=== PATIENT | female | born 1935 | race Caucasian/White ===

== ENCOUNTER 2017-03-08 10:11 | Outpatient (CLI) | payer MEDICARE, OTHER ==
--- NOTE | 2017-03-08 13:46 | PRG ---
DATE OF SERVICE: 03/08/2017 SUBJECTIVE: An 81-year-old female returns today for right medial first metatarsal head ulceration, has been doing well. Has had Promogran dressing changes daily with a MediPort plus pad, covering th e wound, has had no pain with the wound. Denies nausea, vomiting, fevers, or chills. PHYSICAL EXAMINATION: Ulceration to the right foot, medial first metatarsal head measuring 0.5 cm x 0.5 cm x 0.1 cm, 100% slough base. No periwound erythema, edema, or warmth. 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 PLAN: 1. Full thickness debridement of the subcutaneous tissue layer down, removing all nonviable tissue and biofilm from the wound base. Post-debridement the wound was still had a fibrous base appearance to it. 2. We are going to continue with Promogran dressing changes daily. She will follow up with me in 2 weeks.
== END 2017-03-08 10:12 | disposition home or self-care (01) ==
LOC: WCC 10:11
PROVIDERS: ATTEND Podiatrist Foot & Ankle Surgery
DX: L97.519 Non-pressure chronic ulcer of other part of right foot with unspecified severity (principal)
CPT/HCPCS: 11042

== ENCOUNTER 2017-03-22 10:11 | Outpatient (CLI) | payer MEDICARE, OTHER ==
[2017-03-22] MEDS ORDERED: Sodium Chloride 0.9% 15 ML NEB ONE (11:11)
--- NOTE | 2017-03-22 12:16 | PRG ---
DATE OF SERVICE: 03/22/2017 SUBJECTIVE: An 81-year-old female returns today for followup right medial first metatarsal head ulc eration. The patient says she has been doing well with dressing changes. Denies any nausea, vomiti ng, fevers or chills. She has noticed some increase itching and drainage to the feet and they have not been applying the Ciclopirox cream at her nursing facility. OBJECTIVE: Wound at the right medial first metatarsal head has healed. There is 0.3 x 0.3 cm scab which is well adhered, no underlying wound present. There is some erythematous scaling on the dorsa l aspect of the foot. ASSESSMENT: 1. 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 2. Tinea pedis. PLAN: 1. Opened air and moisturizer to the previous wound site. 2. I sent a new prescription to [facility] so the patient can actually get the medicine and kendrick ly it herself twice a day for 4 weeks. She will follow up with me as needed.
== END 2017-03-22 10:12 | disposition home or self-care (01) ==
LOC: WCC 10:11
PROVIDERS: ATTEND Podiatrist Foot & Ankle Surgery
DX: B35.3 Tinea pedis (principal)
CPT/HCPCS: 97602; A4218

== ENCOUNTER 2017-09-24 21:28 | Observation (INO) | payer MEDICARE, OTHER ==
[2017-09-24] MEDS ORDERED: traMADol HCl 50 MG TAB ONE (22:16)
--- NOTE | 2017-09-24 23:13 | RAD ---
CHEST PA AND LATERAL: 09/24/17 HISTORY: 82-year-old female with cough and flu-like symptoms. COMPARISON: 04/02/16. Heart size is within upper range of normal limits. Mild increased linear and interstitial markings no cory bilaterally having more of a chronic appearance. No confluent pneumonia, overt edema, or pleural effusion. IMPRESSION: No acute intrathoracic disease. POS: [facility]
[2017-09-24 23:21] LABS: Hemoglobin 12.3 g/dL (12.0-16.0); Mean Corpuscular HGB CONC 33.5 g/dL (32.0-36.0); Mean Corpuscular Hemoglobin 31.3 pg (27.0-31.0); Mean Corpuscular Volume 93.5 fl (81.0-99.0); Mean Platelet Volume 7.4 fL (7.4-10.4); Platelet Count 154 thou/uL (130-400); RBC Distribution Width 12.2 % (11.5-14.5); Red Blood Cell (RBC) Count 3.93 mill/uL (4.20-5.40); White Blood Cell (WBC) Count 4.1 thou/uL (4.8-10.8)
[2017-09-24 23:41] LABS: ALT (SGPT) 11 U/L (8-55); AST (SGOT) 17 U/L (5-34); Alkaline Phosphatase 74 U/L (40-150); Anion Gap 13 mmol/L (10-20); BUN (Urea Nitrogen) 40 mg/dL (9.8-20.1); Bilirubin, Total 0.5 mg/dL (0.2-1.2); Calc. Creatinine Clearance 0 mL/min (70-130); Calcium 8.9 mg/dL (7.8-10.44); Carbon Dioxide 31 mmol/L (23-31); Chloride 101 mmol/L (98-107); Estimated GFR-MDRD 18; Globulin 2.5 g/dL (2.4-3.5); Glucose 110 mg/dL (83-110); Potassium 3.2 mmol/L (3.5-5.1); Protein, Total 6.5 g/dL (6.0-8.3); Sodium 142 mmol/L (136-145)
[2017-09-24 23:43] LABS: Band 1 % (5-11); Eosinophils 2 % (0-10); Lymphocytes 10 % (21-51); MDiff Complete? YES; Monocytes 18 % (0-10); Neutrophil 68 % (42-75); Reactive Lymphocytes 1 % (0-10)
[2017-09-24 23:45] LABS: CKMB 1.4 ng/mL (0-6.6); Troponin I 0.051 ng/mL (< 0.028)
[2017-09-25] MEDS ORDERED: Potassium Chloride 20 MEQ TAB ONE (01:47)
[2017-09-25 01:54] LABS: CKMB 1.4 ng/mL (0-6.6); Troponin I 0.058 ng/mL (< 0.028)
[2017-09-25] MEDS ORDERED: traMADol HCl 50 MG TAB ONE (02:23)
[2017-09-25 02:27] LABS: CK (CPK) 97 U/L (29-168); Lipase 15 U/L (8-78)
[2017-09-25] MEDS ORDERED: Aspirin 325 MG TAB ONE (04:01)
[2017-09-25 04:25] LABS: Troponin I 0.049 ng/mL (< 0.028)
[2017-09-25 05:03] VITALS: BMI 21.7
[2017-09-25] MEDS ORDERED: Ondansetron ODT 4 MG TAB SL PRN (05:13)
[2017-09-25] MEDS ORDERED: Acetaminophen 325 MG TAB PO PRN ×3 (05:13→07:51)
[2017-09-25] MEDS ORDERED: Ondansetron HCl/PF 4 MG/2 ML Vial IVP PRN (05:13)
[2017-09-25] MEDS ORDERED: Milk Of Magnesia 30 ML UDCUP PO PRN (07:51)
[2017-09-25] MEDS ORDERED: Non-Formulary Item 1 EACH (Eszopiclone [Lunesta] 2 MG) PO PRN (07:51)
[2017-09-25] MEDS ORDERED: Ondansetron ODT 4 MG TAB PO PRN (07:51)
[2017-09-25] MEDS ORDERED: Acetaminophen 500 MG TAB PO PRN (07:51)
[2017-09-25] MEDS ORDERED: traMADol HCl 50 MG TAB PO PRN ×2 (07:51)
[2017-09-25] MEDS ORDERED: Nitroglycerin 0.4 MG TAB (25 Tab Bottle) SL PRN (07:51)
[2017-09-25] MEDS ORDERED: Eszopiclone [Lunesta] 2 MG PO PRN (07:59)
[2017-09-25] MEDS ORDERED: Fluconazole 100 MG TAB PO SCH (09:00)
[2017-09-25] MEDS ORDERED: Multivitamin W/ Minerals 1 TAB PO SCH (09:00)
[2017-09-25] MEDS ORDERED: Potassium Chloride 20 MEQ TAB PO SCH (09:00)
[2017-09-25] MEDS ORDERED: levETIRAcetam 500 MG TAB PO SCH (09:00)
[2017-09-25] MEDS ORDERED: Non-Formulary Item 1 EACH (Carvedilol [Carvedilol] 12.5 MG) PO SCH (09:00)
[2017-09-25] MEDS ORDERED: hydrALAZINE 25 MG TAB PO SCH (09:00)
[2017-09-25] MEDS ORDERED: Non-Formulary Item 1 EACH (Pregabalin [Lyrica] 150 MG) PO SCH (09:00)
[2017-09-25] MEDS ORDERED: Furosemide 40 MG TAB PO SCH (09:00)
[2017-09-25] MEDS ORDERED: Non-Formulary Item 1 EACH (Multivitamin With Minerals [Multiple Vitamin] 1 TABLET) PO SCH (09:00)
[2017-09-25] MEDS ORDERED: Non-Formulary Item 1 EACH (Potassium Chloride [Potassium Chloride] 20 MEQ) PO SCH (09:00)
[2017-09-25] MEDS ORDERED: traMADol HCl 50 MG TAB PO SCH (09:00)
[2017-09-25] MEDS ORDERED: Pregabalin 75 MG CAP PO SCH (09:00)
[2017-09-25] MEDS ORDERED: Carvedilol 6.25 MG TAB PO SCH (09:00)
[2017-09-25] MEDS ORDERED: Non-Formulary Item 1 EACH (Calcium Carbonate/Vitamin D3 [Calcium 600-Vit D3 200 Tablet] 1 PO SCH (09:00)
[2017-09-25] MEDS ORDERED: Calcium Carbonate + Vit D 1 TAB PO SCH (09:00)
[2017-09-25] MEDS ORDERED: Famotidine 20 MG TAB PO SCH (09:00)
[2017-09-25] MEDS ORDERED: Amlodipine 10 MG TAB PO SCH (09:00)
[2017-09-25] MEDS ORDERED: FLUCONAZOLE 200 MG PO SCH (09:00)
[2017-09-25] MEDS ORDERED: LEVETIRACETAM 250 MG PO SCH (09:00)
--- NOTE | 2017-09-25 09:42 | HP ---
DATE OF ADMISSION: 09/25/2017 ADMITTING PHYSICIAN: Dr. Silvestre Hooks. HISTORY OF PRESENT ILLNESS: The patient is an 82-year-old female, who is a resident of [facility]. She states that she was in normal state of health. She is really not sure why she was brought to the hospital. She has a history of COPD. She reports some cough and congestion. Sh e feels like her heart may have come off and she may have gotten somewhat hypoxic. Nonetheless, she was brought to the emergency room. She denies any fever, nausea, vomiting. She has most recently finn d a cardiac workup done by Dr. Dumont in his office and has been found to be at her baseline. She has a history of atrial fibrillation associated with congestive heart failure with decreased ejectio n fraction of approximately 25%-30%. She has not noted any sudden paroxysmal nocturnal dyspnea, orth opnea. She has noted some mild coughing, which caused some chest discomfort. Otherwise, she notes n o other medical complaints. States she is actually feeling quite well at this time. She was seen an d evaluated in the ER. EKG did reveal some mild abnormalities with some mildly elevated indeterminat e level troponins. At this time, she reports no other medical complaints. ALLERGIES: She is allergic to CODEINE and HYDROCODONE. PAST MEDICAL HISTORY: Significant for hypertension and chronic renal insufficiency. PAST SURGICAL HISTORY: Positive for repair of right wrist fracture, pacemaker placement, and pacemak er removal. SOCIAL/PERSONAL HISTORY: She is a . She does not smoke nor does she drink alcohol. She reside s at [facility]. REVIEW OF SYSTEMS: Gastrointestinal: Negative. Genitourinary: Negative. Cardiovascular: Otherwi se, negative. Pulmonary: Positive for cough that is mildly productive. PHYSICAL EXAMINATION: VITAL SIGNS: Temperature 98.9, pulse 62, respirations 16, BP initially was 180/77, O2 sats 96% on 3 liters. GENERAL: She is alert, active, does not appear in any distress. HEENT: Normocephalic, atraumatic. Extraocular muscles are intact. Sclerae and conjunctivae are isabela ar. Throat is clear. NECK: Supple, full range of motion, no masses, no bruits. Thyroid is midline. No thyromegaly or th yroid masses. LUNGS: Bilateral breath sounds. HEART: Reveals an irregularly irregular rhythm. There is no murmur, gallops, or rubs appreciated at this time. EXTREMITIES: No clubbing, edema, or cyanosis. ABDOMEN: Soft, nontender. Bowel sounds are present and active. No hepatosplenomegaly is noted. LABORATORY DATA: Her white blood count is 4.1, hemoglobin 12.3, hematocrit 36.7. Sodium 142, potass ium 3.2, chloride 101, CO2 of 31, BUN 40, creatinine 2.62. Troponins are elevated to indeterminate r osmani between 0.051 and 0.058 and 0.049. BNP is slightly elevated at 67. Chest x-ray shows no eviden ce of any active disease, no evidence of infiltrates otherwise noted. IMPRESSION: An 82-year-old female with known history of atrial fibrillation, congestive heart failur e, chronic renal insufficiency, chronic obstructive pulmonary disease, who has now been admitted for chest discomfort with indeterminate elevated troponins. EKG reveals atrial fibrillation with some fl attened T waves. PLAN: Plan at this time is to check 1 more troponin on her this afternoon. Possible consider cardia c consultation. We will review her cardiac notes that are at my office and make further decisions th is afternoon.
[2017-09-25 12:22] VITALS: BP 155/70; TEMP 98.6
[2017-09-25 12:47] LABS: Troponin I 0.039 ng/mL (< 0.028)
--- NOTE | 2017-09-25 13:02 | DIS ---
HOSPITAL COURSE: Ms. Najera was admitted earlier this morning for elevated to indeterminate troponi n. It was felt like she was probably suffering from an upper respiratory infection with some COPD. She actually did remove her oxygen with a resultant decreased O2 sats. Her observation status in the hospital show no evidence of any acute coronary incident. She was maintained on her more normal opt ion, maintained normal oxygenation. She is able to be discharged back to [facility] on her home medicines. She will follow up with me on a p.r.n. basis.
[2017-09-27] MEDS ORDERED: Furosemide 80 MG TAB PO SCH (09:00)
--- NOTE | 2017-09-29 00:58 | EKG ---
Test Reason : Blood Pressure : / mmHG Vent. Rate : 061 BPM Atrial Rate : 050 BPM P-R Int : 000 ms QRS Dur : 118 ms QT Int : 468 ms P-R-T Axes : 000 -47 218 degrees QTc Int : 471 ms Atrial fibrillation Pulmonary disease pattern Left anterior fascicular block Prolonged QT Abnormal ECG Confirmed by DAVID CHAVZE ([id number]), desk editor TUAN JOSEPH ([id number]) on 09/29/2017 12:58:11 AM Referred By: Confirmed By:DAVID CHAVEZ
== END 2017-09-25 14:50 ==
LOC: ERS 21:28 → 2SW 09-25 02:37
PROVIDERS: ADMIT Family Medicine; ATTEND Family Medicine
DX: Z98.890 Other specified postprocedural states; I48.91 Unspecified atrial fibrillation; R79.89 Other specified abnormal findings of blood chemistry; Z88.5 Allergy status to narcotic agent; N18.9 Chronic kidney disease, unspecified; I50.9 Heart failure, unspecified; J44.9 Chronic obstructive pulmonary disease, unspecified; R07.89 Other chest pain; I13.0 Hypertensive heart and chronic kidney disease with heart failure and stage 1 through stage 4 chronic kidney disease, or unspecified chronic kidney disease
CPT/HCPCS: 71046; 80053; 82550; 82553 ×2; 83690; 83880; 84484 ×3; 85025; 87804 ×2; 93005 ×2; 99285; G0378; 36415; J7620

== ENCOUNTER 2017-09-30 01:55 | Inpatient (IN) | payer MEDICARE, OTHER ==
[2017-09-30 03:17] LABS: #Eosinphils 0.2 thou/uL (0.0-0.7); #Lymphocytes 0.8 thou/uL (1.20-3.40); #Monocytes 1.3 thou/uL (0.11-0.59); #Neutrophils 12.4 thou/uL (1.40-6.50); %Basophils 0.3 % (0.0-1.0); %Eosinophils 1.4 % (0.0-10.0); %Lymphocytes 5.1 % (21.0-51.0); %Neutrophils 84.2 % (42.0-75.0); Hemoglobin 11.7 g/dL (12.0-16.0); Mean Corpuscular HGB CONC 34.5 g/dL (32.0-36.0); Mean Corpuscular Hemoglobin 32.5 pg (27.0-31.0); Mean Platelet Volume 7.4 fL (7.4-10.4); Platelet Count 183 thou/uL (130-400); Red Blood Cell (RBC) Count 3.62 mill/uL (4.20-5.40); White Blood Cell (WBC) Count 14.7 thou/uL (4.8-10.8)
[2017-09-30 03:27] LABS: ALT (SGPT) 12 U/L (8-55); AST (SGOT) 16 U/L (5-34); Alkaline Phosphatase 84 U/L (40-150); Anion Gap 14 mmol/L (10-20); BUN (Urea Nitrogen) 37 mg/dL (9.8-20.1); Bilirubin, Total 0.6 mg/dL (0.2-1.2); Calc. Creatinine Clearance 0 mL/min (70-130); Calcium 8.9 mg/dL (7.8-10.44); Carbon Dioxide 27 mmol/L (23-31); Chloride 101 mmol/L (98-107); Estimated GFR-MDRD 18; Glucose 108 mg/dL (83-110); Potassium 3.6 mmol/L (3.5-5.1); Sodium 138 mmol/L (136-145)
[2017-09-30 03:31] LABS: CKMB 2.4 ng/mL (0-6.6); Troponin I 0.024 ng/mL (< 0.028)
[2017-09-30 04:06] LABS: Bilirubin Negative (Negative); Blood, Urine Negative (Negative); Clarity CLEAR (Clear); Glucose, Urine (Dipstick) Negative (Negative); Leukocyte Negative (Negative); Nitrite Negative (Negative); Protein, Urine (Dipstick) 100 mg/dL (Neg-Trace); Specific Gravity, Urine 1.012 (1.002-1.036); Urobilinogen 0.2 mg/dL (0.2-1.0); pH, Urine 5.5 (5.0-9.0)
[2017-09-30 04:09] LABS: Bacteria/HPF None Seen HPF (None Seen); Hyaline Casts/LPF 0-3 HYALINE CAST LPF (0-3 Hyaline); Pathc Cast-AUWi Flag 0.14 (0-2.49); RBC/HPF 0-3 HPF (0-3); Squamous Epithelial None Seen HPF (0-3); WBC/HPF 0-3 HPF (0-3)
[2017-09-30] MEDS ORDERED: Ondansetron ODT 4 MG TAB SL PRN (04:58)
[2017-09-30] MEDS ORDERED: Acetaminophen 325 MG TAB PO PRN (04:58)
[2017-09-30] MEDS ORDERED: Ondansetron HCl/PF 4 MG/2 ML Vial IVP PRN (04:58)
[2017-09-30 06:44] LABS: Troponin I 0.023 ng/mL (< 0.028)
[2017-09-30 07:38] VITALS: BMI 23.1
[2017-09-30] MEDS ORDERED: Non-Formulary Item 1 EACH (Eszopiclone [Lunesta] 2 MG) PO PRN (07:50)
[2017-09-30] MEDS ORDERED: Nitroglycerin 0.4 MG TAB (25 Tab Bottle) SL PRN (07:50)
[2017-09-30] MEDS ORDERED: Milk Of Magnesia 30 ML UDCUP PO PRN (07:50)
[2017-09-30] MEDS ORDERED: Guaifenesin DM 100-10/5 ML UDCUP PO PRN (07:50)
--- NOTE | 2017-09-30 08:02 | RAD ---
SINGLE VIEW CHEST: Date: 09/30/17 COMPARISON: 04/02/16. HISTORY: Shortness of breath and cough. FINDINGS: Single view of the chest shows an enlarged but stable cardiomediastinal silhouette. Increased interst itial markings are present. Atelectasis is seen in both lung bases. There is no evidence of consolida tion, mass, or pleural effusion. IMPRESSION: 1. Cardiomegaly. 2. Bibasilar atelectasis. POS: [facility]
[2017-09-30] MEDS ORDERED: Zolpidem Tartrate 5 MG TAB PO PRN (08:18)
--- NOTE | 2017-09-30 08:45 | HP ---
ADMITTING PHYSICIAN: Silvestre Hooks M.D. HISTORY OF PRESENT ILLNESS: The patient is an 82-year-old female with known history of congestive he art failure, COPD, cardiomyopathy, atherosclerotic coronary artery disease, history of seizure disord er. She was admitted through the emergency room with apparent right lower lobe pneumonia due to feve r and productive coughing. Chest x-ray that apparently does show a right lower lobe pneumonia. She states that she has been having some shortness of breath. She was recently here for observation appr oximately 1 week ago due to EKG changes. All of her troponins were noted to be negative. She is now resting comfortably in bed. She reports no additional complaints. ALLERGIES: CODEINE and HYDROCODONE. CURRENT MEDICATIONS: Noted in the chart. PAST MEDICAL HISTORY: Significant for hypertension, chronic renal insufficiency, atherosclerotic cor onary artery disease, chronic congestive heart failure, seizure disorder. PAST SURGICAL HISTORY: Positive for pacemaker placement and removal, repair of right wrist fracture. SOCIAL/PERSONAL HISTORY: She is a . She currently lives at [facility]. REVIEW OF SYSTEMS: GASTROINTESTINAL: Negative. GENITOURINARY: Negative. CARDIOVASCULAR: Negative. PULMONARY: Positive for a productive cough. PHYSICAL EXAMINATION: VITAL SIGNS: Temperature 98.7, pulse 72, respirations 18, O2 sat 92% on 2 liters, BP 177/81. GENERAL: She is alert, active, does not appear in any distress. HEENT: Normocephalic, atraumatic. Extraocular muscles are intact. Pupils equal, round, and reactiv e to light. Throat clear. NECK: Supple, full range of motion, no masses. LUNGS: Reveal bilateral breath sounds with some raspy rhonchi noted and diffuse wheezes. No evidenc e of any significant rales otherwise noted at this time. ABDOMEN: Soft, nontender, bowel sounds are active. No hepatosplenomegaly is noted. NEUROLOGIC: She is alert and oriented x3. Cranial nerves II-XII are intact. LABORATORY: Her white blood count is 14.7, hemoglobin 11.7, hematocrit 34.0. Chemistry: Sodium 138 , potassium 3.6, chloride 101, CO2 27, BUN 37, creatinine 2.57. Urinalysis otherwise clear. Influen za swab negative. Chest x-ray: There is report of a right lower lobe pneumonia; however, official report is not produc ed. IMPRESSION: This is an 82-year-old female admitted through the emergency room with apparent right lo wer lobe pneumonia. PLAN: She has been given ceftriaxone, Bactrim, vancomycin already in the ER. We will continue ceftr iaxone, will switch her to azithromycin per pneumonia protocol. Continue home medications.
[2017-09-30] MEDS: Amlodipine 10 MG TAB PO SCH (09:04)
[2017-09-30] MEDS: Pregabalin 75 MG CAP PO SCH ×2 (09:04→20:54)
[2017-09-30] MEDS: Azithromycin 500 MG in Sodium Chloride 0.9% 250 ML 250 ML IVPB SCH (09:04)
[2017-09-30] MEDS: Famotidine 20 MG TAB PO SCH (09:04)
[2017-09-30] MEDS: traMADol HCl 50 MG TAB PO SCH ×3 (09:04→20:55)
[2017-09-30] MEDS: Potassium Chloride 20 MEQ TAB PO SCH ×2 (09:04→20:56)
[2017-09-30] MEDS: levETIRAcetam 500 MG TAB PO SCH (09:05)
[2017-09-30] MEDS: Multivitamin W/ Minerals 1 TAB PO SCH (09:05)
[2017-09-30] MEDS: Calcium Carbonate + Vit D 1 TAB PO SCH (09:05)
[2017-09-30] MEDS: Furosemide 40 MG TAB PO SCH (09:05)
[2017-09-30] MEDS: hydrALAZINE 25 MG TAB PO SCH ×3 (09:05→20:56)
[2017-09-30] MEDS: cefTRIAXone\\ROCEPHIN 2 GM in Sodium Chloride 0.9% 100 ML IVPB SCH (09:05)
[2017-09-30] MEDS: Carvedilol 6.25 MG TAB PO SCH ×2 (09:05→20:54)
[2017-09-30 09:52] LABS: Troponin I 0.043 ng/mL (< 0.028)
[2017-09-30] MEDS: Acetaminophen 325 MG TAB PO PRN (20:53)
--- NOTE | 2017-10-01 07:57 | PRG ---
DATE OF SERVICE: 10/01/2017 HISTORY OF PRESENT ILLNESS: Ms. Najera is slightly confused this morning upon arousal. She does se em to come around. She is just simply slightly confused due to not being in the [place] [facility] environ ment that she is normally in. She does have no medical complaints. Evidently she slept through the night without difficulties or problems. PHYSICAL EXAMINATION: VITAL SIGNS: Temperature 98.2. She has been afebrile since she has been in the hospital. O2 sats 9 2% on nasal cannula, BP 166/71. LUNGS: Reveal bilateral breath sounds. HEART: Reveals no murmur. LABORATORY: Blood cultures are negative thus far. Urine culture is negative thus far. Chest x-ray by previous report was noted to possibly have a right lower lobe pneumonia. Upon further reading, this really does not seem to show any significant pneumonia at this time. IMPRESSION: The patient has been admitted for pneumonia and is currently being treated for this. PLAN: We will continue current therapy. If she is doing better, probably could discharge her back t o [place] tomorrow.
[2017-10-01] MEDS: Azithromycin 500 MG in Sodium Chloride 0.9% 250 ML 250 ML IVPB SCH (10:50)
[2017-10-01] MEDS: hydrALAZINE 25 MG TAB PO SCH ×3 (10:56→20:06)
[2017-10-01] MEDS: cefTRIAXone\\ROCEPHIN 2 GM in Sodium Chloride 0.9% 100 ML IVPB SCH (10:56)
[2017-10-01] MEDS: Multivitamin W/ Minerals 1 TAB PO SCH (10:57)
[2017-10-01] MEDS: Furosemide 80 MG TAB PO SCH (10:57)
[2017-10-01] MEDS: Calcium Carbonate + Vit D 1 TAB PO SCH (10:57)
[2017-10-01] MEDS: Potassium Chloride 20 MEQ TAB PO SCH ×2 (10:57→20:07)
[2017-10-01] MEDS: levETIRAcetam 500 MG TAB PO SCH (10:58)
[2017-10-01] MEDS: traMADol HCl 50 MG TAB PO SCH ×3 (10:58→20:07)
[2017-10-01] MEDS: Pregabalin 75 MG CAP PO SCH ×2 (10:59→20:05)
[2017-10-01] MEDS: Amlodipine 10 MG TAB PO SCH (11:00)
[2017-10-01] MEDS: Carvedilol 6.25 MG TAB PO SCH ×2 (11:01→20:07)
[2017-10-01] MEDS: Famotidine 20 MG TAB PO SCH (13:16)
[2017-10-01] MEDS: Acetaminophen 325 MG TAB PO PRN ×2 (17:36→23:46)
[2017-10-02] MEDS: Acetaminophen 325 MG TAB PO PRN ×2 (05:06→19:01)
[2017-10-02] MEDS: Azithromycin 500 MG in Sodium Chloride 0.9% 250 ML 250 ML IVPB SCH (10:15)
[2017-10-02] MEDS: cefTRIAXone\\ROCEPHIN 2 GM in Sodium Chloride 0.9% 100 ML IVPB SCH (10:16)
[2017-10-02] MEDS: Pregabalin 75 MG CAP PO SCH ×2 (10:16→21:50)
[2017-10-02] MEDS: traMADol HCl 50 MG TAB PO SCH ×3 (10:17→21:52)
[2017-10-02] MEDS: Famotidine 20 MG TAB PO SCH (10:17)
[2017-10-02] MEDS: levETIRAcetam 500 MG TAB PO SCH (10:18)
[2017-10-02] MEDS: Potassium Chloride 20 MEQ TAB PO SCH ×2 (10:18→21:53)
[2017-10-02] MEDS: Calcium Carbonate + Vit D 1 TAB PO SCH (10:18)
[2017-10-02] MEDS: Furosemide 40 MG TAB PO SCH (10:18)
[2017-10-02] MEDS: Multivitamin W/ Minerals 1 TAB PO SCH (10:19)
[2017-10-02] MEDS: Amlodipine 10 MG TAB PO SCH (10:19)
[2017-10-02] MEDS: hydrALAZINE 25 MG TAB PO SCH ×3 (10:25→21:52)
[2017-10-02] MEDS: Carvedilol 6.25 MG TAB PO SCH ×2 (10:25→21:51)
--- NOTE | 2017-10-02 13:47 | PRG ---
DATE OF SERVICE: 10/02/2017 SUBJECTIVE: Ms. Najera is awake and alert, sitting up in a chair, conversing with her friend. She reports she is being tired at times. She is still frustrated by the fact that she probably will have to go to [facility]. OBJECTIVE: VITAL SIGNS: Her pulse is 62, BP 132/60, O2 sat is 94% on 3 liters. LUNGS: Reveal bilateral breath sounds. No wheezes or rales. HEART: Reveals no murmur. ABDOMEN: Soft and nontender. EXTREMITIES: No clubbing, edema, or cyanosis. LABORATORY DATA: One blood culture has a presumptive micrococcus species. She is still maintained o n Rocephin and Zithromax at this time. IMPRESSION: 1. Possible low-grade pneumonia, although chest x-ray is rather uncertain about this. 2. Continued weakness. 3. History of cardiomyopathy. 4. Chronic renal insufficiency. PLAN: She will continue on her current medications. Anticipate discharge to [facility] facilit y tomorrow. I have discussed this with her in detail. Although she is reluctant to do skilled nursi ng, I have convinced her this is probably the best course of action at this time.
--- NOTE | 2017-10-03 08:00 | PRG ---
DATE OF SERVICE: 10/03/2017 Ms. Najera is resting well. PHYSICAL EXAMINATION: VITAL SIGNS: Temperature 98.1, BP 146/64. LUNGS: Reveal bilateral breath sounds. HEART: Reveals no murmur. IMPRESSION: Low grade pneumonia. PLAN: She is able to be discharged to [facility]. I have spoken with the patient. S he is willing to accept this at this time.
[2017-10-03] MEDS: Azithromycin 500 MG in Sodium Chloride 0.9% 250 ML 250 ML IVPB SCH (08:48)
[2017-10-03] MEDS: Potassium Chloride 20 MEQ TAB PO SCH (08:49)
[2017-10-03] MEDS: levETIRAcetam 500 MG TAB PO SCH (08:50)
[2017-10-03] MEDS: Carvedilol 6.25 MG TAB PO SCH (08:51)
[2017-10-03] MEDS: hydrALAZINE 25 MG TAB PO SCH (08:51)
[2017-10-03] MEDS: Calcium Carbonate + Vit D 1 TAB PO SCH (08:51)
[2017-10-03] MEDS: Famotidine 20 MG TAB PO SCH (08:52)
[2017-10-03] MEDS: Pregabalin 75 MG CAP PO SCH (08:52)
[2017-10-03] MEDS: Amlodipine 10 MG TAB PO SCH (08:53)
[2017-10-03] MEDS: traMADol HCl 50 MG TAB PO SCH (08:53)
[2017-10-03] MEDS: Multivitamin W/ Minerals 1 TAB PO SCH (08:53)
[2017-10-03] MEDS: Furosemide 80 MG TAB PO SCH (08:53)
[2017-10-03] MEDS: cefTRIAXone\\ROCEPHIN 2 GM in Sodium Chloride 0.9% 100 ML IVPB SCH (11:12)
[2017-10-03 11:33] VITALS: BP 137/65; TEMP 98
[2017-10-03] MEDS: Acetaminophen 325 MG TAB PO PRN (12:49)
--- NOTE | 2017-10-03 18:29 | DIS ---
DATE OF ADMISSION: 09/30/2017 DATE OF DISCHARGE: 10/03/2017 DISCHARGE DIAGNOSES: 1. Mild right lower lobe pneumonia. 2. History of congestive heart failure. 3. History of chronic obstructive pulmonary disease. 4. History of chronic renal insufficiency. 5. Generalized deconditioning. ADMITTING PHYSICIAN: Dr. Silvestre Hooks. HOSPITAL SUMMARY: The patient is an 82-year-old female who was admitted to the emergency room with a n apparent diagnosis of right lower lobe pneumonia. Further evaluation by me did reveal some rales a nd rhonchi at her bases. Chest x-ray showed minimal evidence of pneumonia. She was placed on IV Lucas ephin as well as IV Zithromax. She has received nebulizations. She remained mildly confused for a c ouple of days after evaluation and treatment, she did clear up. I was able to do some exercises with physical therapy. After significant discussion with the patient as well as her daughter who lives a way in [place], we felt the best course of action was to take her out of her assisted longterm a nd place in a correction at [place]. Patient was finally agreeable to this. She was discharg ed on 10/03/2017. DISCHARGE MEDICATIONS: Amlodipine 10 mg daily, Zithromax 500 mg p.o. daily for 7 days, Coreg 12.5 mg b.i.d., famotidine 20 mg daily, Lasix 40 mg 2 daily, hydralazine 50 mg t.i.d., albuterol, DuoNebs fo ur times daily, levocetirizine 250 mg p.o. daily, potassium chloride 20 mEq b.i.d., Lyrica 150 mg b.i .d., tramadol 100 mg p.o. t.i.d. as needed for pain, Lunesta 2 mg p.o. at bedtime. She will be seen in followup in my office in 2-3 weeks.
== END 2017-10-03 15:19 | DRG 190 ==
LOC: ERS 01:55 → 2NO 04:40
PROVIDERS: ADMIT Family Medicine; ATTEND Family Medicine
DX: J44.0 Chronic obstructive pulmonary disease with (acute) lower respiratory infection (principal); J18.9 Pneumonia, unspecified organism; I13.0 Hypertensive heart and chronic kidney disease with heart failure and stage 1 through stage 4 chronic kidney disease, or unspecified chronic kidney disease; I42.9 Cardiomyopathy, unspecified; G40.909 Epilepsy, unspecified, not intractable, without status epilepticus; I50.9 Heart failure, unspecified; N18.9 Chronic kidney disease, unspecified; I25.10 Atherosclerotic heart disease of native coronary artery without angina pectoris
CPT/HCPCS: 36415; 71045; 80053; 81003; 81015; 82553; 84484; 85025; 87040; 87086; 87149; 87804; 93005; 94640; 94760; 96365; 96375; A4216; G8978-GP-CK; G8979-GP-CJ; G8996-GN-CI; G8997-GN-CI; J0456; J0696; J2920; J3370; J7050; J7620

== ENCOUNTER 2017-10-04 10:07 | Emergency (ER) | payer MEDICARE, OTHER ==
--- NOTE | 2017-10-04 10:59 | CT ---
CT BRAIN WITHOUT CONTRAST: History: Altered mental status. Right sided facial drooping/slurred speech. Patient complains of ligh theadedness. Comparison: 01-31-16 FINDINGS: Changes of cortical atrophy and chronic small vessel ischemic disease are again seen. The ventricular size is stable and the basilar cisterns patent. No evidence of acute infarct, hemorrhage, midline sh ift or abnormal extraaxial fluid collections is noted. The bony calvarium is intact. There is mucosal disease in the paranasal sinuses. IMPRESSION: No CT evidence of acute intracranial process. POS: [facility]
--- NOTE | 2017-10-04 11:00 | RAD ---
FRONTAL VIEW CHEST: Comparison: 09-30-17 Clinical history: Altered mental status. FINDINGS: There is enlargement of the cardiac silhouette. Bilateral perihilar and vascular prominence/interstit ial opacification is present. There is vascular calcification. No effusion or pneumothorax. IMPRESSION: Evidence of CHF. POS: [facility]
[2017-10-04 11:05] LABS: #Basophils 0.1 thou/uL (0.0-0.2); #Eosinphils 0.1 thou/uL (0.0-0.7); #Lymphocytes 0.7 thou/uL (1.20-3.40); #Monocytes 1.6 thou/uL (0.11-0.59); #Neutrophils 10.4 thou/uL (1.40-6.50); %Basophils 0.5 % (0.0-1.0); %Eosinophils 0.6 % (0.0-10.0); %Lymphocytes 5.4 % (21.0-51.0); %Monocytes 12.3 % (0.0-10.0); %Neutrophils 81.2 % (42.0-75.0); Hemoglobin 10.7 g/dL (12.0-16.0); Mean Corpuscular Volume 96.7 fl (81.0-99.0); Mean Platelet Volume 7.5 fL (7.4-10.4); Platelet Count 273 thou/uL (130-400); Red Blood Cell (RBC) Count 3.36 mill/uL (4.20-5.40); White Blood Cell (WBC) Count 12.8 thou/uL (4.8-10.8)
[2017-10-04 11:19] LABS: ALT (SGPT) 24 U/L (8-55); AST (SGOT) 28 U/L (5-34); Albumin 3.5 g/dL (3.4-4.8); Alkaline Phosphatase 81 U/L (40-150); Anion Gap 9 mmol/L (10-20); BUN (Urea Nitrogen) 50 mg/dL (9.8-20.1); Bilirubin, Total 0.2 mg/dL (0.2-1.2); CK (CPK) 83 U/L (29-168); Calc. Creatinine Clearance 0 mL/min (70-130); Calcium 8.5 mg/dL (7.8-10.44); Carbon Dioxide 32 mmol/L (23-31); Chloride 98 mmol/L (98-107); Estimated GFR-MDRD 21; Globulin 2.8 g/dL (2.4-3.5); Glucose 105 mg/dL (83-110); Lipase 55 U/L (8-78); Potassium 4.4 mmol/L (3.5-5.1); Protein, Total 6.3 g/dL (6.0-8.3); Sodium 135 mmol/L (136-145)
[2017-10-04 11:23] LABS: CKMB 3.3 ng/mL (0-6.6); Troponin I Less than 0.010 ng/mL (< 0.028)
== END 2017-10-04 14:15 | disposition home or self-care (01) ==
LOC: ERS 10:07
DX: G45.9 Transient cerebral ischemic attack, unspecified (principal); I11.0 Hypertensive heart disease with heart failure; I50.9 Heart failure, unspecified; I48.91 Unspecified atrial fibrillation; E78.5 Hyperlipidemia, unspecified; K21.9 Gastro-esophageal reflux disease without esophagitis; G47.00 Insomnia, unspecified; F41.9 Anxiety disorder, unspecified; F32.9 Major depressive disorder, single episode, unspecified; Z79.899 Other long term (current) drug therapy
CPT/HCPCS: 36415; 70450; 71045; 80053; 82553; 83690; 83880; 84484; 85025; 93005; 96360

== ENCOUNTER 2018-05-04 15:57 | Emergency (ER) | payer MEDICARE, OTHER ==
--- NOTE | 2018-05-04 17:50 | RAD ---
RIGHT HAND TWO VIEWS: History: 82-year-old female with history of trauma. FINDINGS: Split overlies the ulnar side of the wrist and hand, somewhat obscuring underlying bony detail. There is an irregular fracture through the ulnar side of the base of the fifth metacarpal. Degenerative an d osteoarthrosis changes are noted. IMPRESSION: Nondisplaced somewhat oblique fracture through the ulnar side of the base of the fifth metacarpal, pa rtially obscured by splint material. Diffuse soft tissue swelling particularly dorsally and on the ul cash side. POS: [facility]
== END 2018-05-04 17:52 | disposition home or self-care (01) ==
LOC: ERS 15:57
DX: S62.346A Nondisplaced fracture of base of fifth metacarpal bone, right hand, initial encounter for closed fracture (principal); E78.5 Hyperlipidemia, unspecified; I48.91 Unspecified atrial fibrillation; I11.0 Hypertensive heart disease with heart failure; I50.9 Heart failure, unspecified; K21.9 Gastro-esophageal reflux disease without esophagitis; G47.00 Insomnia, unspecified; F41.9 Anxiety disorder, unspecified; F32.9 Major depressive disorder, single episode, unspecified; Z79.899 Other long term (current) drug therapy; W22.8XXA Striking against or struck by other objects, initial encounter
CPT/HCPCS: 26600

== ENCOUNTER 2019-01-24 18:15 | Inpatient (IN) | payer MEDICARE, OTHER ==
[2019-01-24 18:59] LABS: Bilirubin Negative (Negative); Blood, Urine Negative (Negative); Clarity Clear (Clear); Glucose, Urine (Dipstick) Normal (Negative); Leukocyte Negative Leu/uL (Negative); Nitrite Negative (Negative); Protein, Urine (Dipstick) 50 mg/dL (Neg-Trace); RBC/HPF None Seen HPF (0-3); Squamous Epithelial 0-3 HPF (0-3); Urobilinogen Normal mg/dL (Less than 2); WBC/HPF 0-3 HPF (0-3)
[2019-01-24 19:08] LABS: Bacteria/HPF 2+ HPF (None Seen)
--- NOTE | 2019-01-24 19:12 | RAD ---
CHEST ONE VIEW: 01/24/19 HISTORY: Dyspnea. COMPARISON: 10/04/17. FINDINGS: Cardiomegaly. Bilateral vascular congestion with some linear and interstitial opacities bilaterally a nd small left pleural effusion raising concern for congestive heart failure. No confluent pneumonia. IMPRESSION: Evidence for congestive heart failure. Atherosclerosis of the aorta. Little change from prior study. POS: [facility]
[2019-01-24 19:25] LABS: #Basophils 0.1 thou/uL (0.0-0.2); #Eosinphils 0.2 thou/uL (0.0-0.7); #Lymphocytes 0.2 thou/uL (1.20-3.40); #Neutrophils 8.5 thou/uL (1.40-6.50); %Basophils 0.7 % (0.0-1.0); %Eosinophils 2.5 % (0.0-10.0); %Lymphocytes 1.9 % (21.0-51.0); %Monocytes 9.7 % (0.0-10.0); %Neutrophils 85.3 % (42.0-75.0); Hemoglobin 10.4 g/dL (12.0-16.0); Mean Corpuscular HGB CONC 32.9 g/dL (32.0-36.0); Mean Corpuscular Hemoglobin 30.1 pg (27.0-31.0); Mean Corpuscular Volume 91.3 fL (78.0-98.0); Mean Platelet Volume 7.9 fL (7.4-10.4); Platelet Count 246 thou/uL (130-400); RBC Distribution Width 12.7 % (11.5-14.5); Red Blood Cell (RBC) Count 3.45 mill/uL (4.20-5.40); White Blood Cell (WBC) Count 9.9 thou/uL (4.8-10.8)
[2019-01-24 19:36] LABS: ALT (SGPT) 12 U/L (8-55); AST (SGOT) 16 U/L (5-34); Alkaline Phosphatase 82 U/L (40-150); Anion Gap 17 mmol/L (10-20); BUN (Urea Nitrogen) 49 mg/dL (9.8-20.1); Bilirubin, Total 0.8 mg/dL (0.2-1.2); Calc. Creatinine Clearance 0 mL/min (70-130); Calcium 8.8 mg/dL (7.8-10.44); Carbon Dioxide 27 mmol/L (23-31); Chloride 101 mmol/L (98-107); Estimated GFR-MDRD 16; Globulin 2.8 g/dL (2.4-3.5); Glucose 122 mg/dL (83-110); Potassium 3.4 mmol/L (3.5-5.1); Protein, Total 6.8 g/dL (6.0-8.3); Sodium 142 mmol/L (136-145)
[2019-01-24] MEDS ORDERED: Piperacillin/Tazobactam 3.375 GM VIAL ONE (19:36)
--- NOTE | 2019-01-24 19:47 | CT ---
BRAIN CT WITHOUT IV CONTRAST: 01/24/19 HISTORY: Mental status changes, fatigue. COMPARISON: 10/04/17. FINDINGS: No focal mass or midline shift. No intra or extra-axial hemorrhage. Sinuses and mastoids appear to be clear of acute process with some bilateral maxillary sinus mucosal disease. IMPRESSION: No significant acute intracranial process. No mass or bleed. Minimal sinus mucosa disease involving t he maxillary sinuses. POS: [facility]
[2019-01-25] MEDS ORDERED: methylPREDNISolone Sod Succ/PF 125 MG/2 ML VIAL ONE (00:08)
[2019-01-25 01:33] VITALS: BMI 25.0
[2019-01-25] MEDS ORDERED: Ondansetron ODT 4 MG TAB PO PRN (02:25)
[2019-01-25] MEDS ORDERED: Diabetic Tussin 200 MG/10 ML UDCUP PO PRN (02:25)
[2019-01-25] MEDS ORDERED: Bisacodyl 5 MG TAB PO PRN (02:25)
[2019-01-25] MEDS ORDERED: Ondansetron PF 4 MG/2 ML Vial IVP PRN (02:25)
[2019-01-25] MEDS ORDERED: Benzonatate 100 MG CAP PO PRN (02:25)
[2019-01-25] MEDS ORDERED: Calcium Carbonate 500 MG ChewTAB PO PRN (02:25)
[2019-01-25] MEDS: cefTRIAXone\\ROCEPHIN 2 GM in Sodium Chloride 0.9% 100 ML IVPB SCH (02:54)
[2019-01-25] MEDS: Azithromycin 500 MG in Sodium Chloride 0.9% 250 ML 250 ML IVPB SCH (03:01)
[2019-01-25 06:06] LABS: #Lymphocytes 0.1 thou/uL (1.20-3.40); #Monocytes 0.1 thou/uL (0.11-0.59); #Neutrophils 6.7 thou/uL (1.40-6.50); %Basophils 0.5 % (0.0-1.0); %Monocytes 1.8 % (0.0-10.0); %Neutrophils 95.7 % (42.0-75.0); Hemoglobin 10.7 g/dL (12.0-16.0); Mean Corpuscular HGB CONC 33.7 g/dL (32.0-36.0); Mean Corpuscular Hemoglobin 30.9 pg (27.0-31.0); Mean Corpuscular Volume 91.6 fL (78.0-98.0); Mean Platelet Volume 7.5 fL (7.4-10.4); Platelet Count 237 thou/uL (130-400); RBC Distribution Width 12.6 % (11.5-14.5); Red Blood Cell (RBC) Count 3.46 mill/uL (4.20-5.40)
[2019-01-25 06:20] LABS: ALT (SGPT) 13 U/L (8-55); AST (SGOT) 16 U/L (5-34); Albumin 3.9 g/dL (3.4-4.8); Alkaline Phosphatase 82 U/L (40-150); Anion Gap 17 mmol/L (10-20); BUN (Urea Nitrogen) 46 mg/dL (9.8-20.1); Bilirubin, Total 0.5 mg/dL (0.2-1.2); Calc. Creatinine Clearance 17 mL/min (70-130); Calcium 8.6 mg/dL (7.8-10.44); Carbon Dioxide 28 mmol/L (23-31); Chloride 101 mmol/L (98-107); Estimated GFR-MDRD 16; Globulin 2.2 g/dL (2.4-3.5); Glucose 155 mg/dL (83-110); Potassium 3.1 mmol/L (3.5-5.1); Protein, Total 6.1 g/dL (6.0-8.3); Sodium 143 mmol/L (136-145)
[2019-01-25 06:25] LABS: Troponin I 0.042 ng/mL (< 0.028)
[2019-01-25] MEDS: predniSONE 20 MG TAB PO SCH (07:37)
[2019-01-25] MEDS ORDERED: Prevnar 13-Val Conj/PF 0.5 ML SYRINGE IM ONE (09:00)
[2019-01-25] MEDS ORDERED: Furosemide 80 MG TAB PO SCH ×2 (09:30→10:15)
[2019-01-25] MEDS ORDERED: Furosemide 40 MG/4 ML VIAL SLOW IVP SCH (09:30)
[2019-01-25] MEDS ORDERED: Furosemide 40 MG TAB PO SCH ×2 (09:30→10:15)
[2019-01-25] MEDS ORDERED: Nitroglycerin 0.4 MG TAB (25 Tab Bottle) SL PRN (10:42)
[2019-01-25] MEDS ORDERED: Famotidine 20 MG TAB PO SCH (10:45)
[2019-01-25] MEDS ORDERED: levETIRAcetam 500 MG TAB PO SCH (10:45)
[2019-01-25] MEDS: Isosorbide Dinitrate 20 MG TAB PO SCH (12:28)
[2019-01-25] MEDS ORDERED: Vancomycin HCl 250 MG in Sodium Chloride 0.9% 100 ML IVPB SCH (13:00)
[2019-01-25] MEDS ORDERED: Vancomycin HCl 500 MG in Sodium Chloride 0.9% 100 ML IVPB SCH (13:00)
[2019-01-25] MEDS ORDERED: Vancomycin HCl 1 GM in Premix Bag 1 BAG IVPB SCH (13:00)
[2019-01-25] MEDS ORDERED: Vancomycin Sliding Scale 1 EACH FS SCH (13:00)
[2019-01-25] MEDS ORDERED: HOLD VANCOMYCIN FOR LEVEL >20 FS SCH (13:00)
[2019-01-25] MEDS ORDERED: Vancomycin HCl 750 MG in Sodium Chloride 0.9% 250 ML 250 ML IVPB SCH (13:00)
[2019-01-25] MEDS ORDERED: Pharmacy to Dose 1 EACH VANCOMYCIN IVPB SCH (16:30)
[2019-01-25 17:03] LABS: Anion Gap 17 mmol/L (10-20); BUN (Urea Nitrogen) 49 mg/dL (9.8-20.1); Calc. Creatinine Clearance 17 mL/min (70-130); Calcium 8.4 mg/dL (7.8-10.44); Carbon Dioxide 26 mmol/L (23-31); Chloride 101 mmol/L (98-107); Estimated GFR-MDRD 16; Glucose 184 mg/dL (83-110); Magnesium 1.9 mg/dL (1.6-2.6); Sodium 141 mmol/L (136-145)
[2019-01-25] MEDS ORDERED: Magnesium 2 GM/50 ML 2 GM in Premix Bag 1 BAG IVPB SCH (17:15)
[2019-01-25 17:22] LABS: Potassium 2.9 mmol/L (3.5-5.1); Troponin I 0.039 ng/mL (< 0.028)
[2019-01-25] MEDS ORDERED: Potassium Chloride 40 MEQ in Sodium Chloride 0.9% 500 ML IVPB SCH (18:00)
[2019-01-25] MEDS ORDERED: Non-Formulary Item 1 EACH (Carvedilol [Coreg] 12.5 MG) PO SCH (21:00)
[2019-01-25] MEDS: Vancomycin HCl 500 MG in Sodium Chloride 0.9% 100 ML IVPB SCH (21:01)
[2019-01-25] MEDS: Pregabalin 75 MG CAP PO SCH (21:02)
[2019-01-25] MEDS: Carvedilol 6.25 MG TAB PO SCH (21:03)
[2019-01-25] MEDS: Potassium Chloride 20 MEQ TAB PO SCH (21:08)
[2019-01-25] MEDS: Acetaminophen 500 MG TAB PO PRN (21:11)
--- NOTE | 2019-01-25 23:39 | CON ---
DATE OF CONSULTATION: 01/25/2019 PRIMARY CARE PHYSICIAN: Silvestre Hooks MD HISTORY OF PRESENT ILLNESS: Ms. Najera is an 83-year-old female, who presented with altered mental status. Apparently, this has dramatically improved per my discussion with the respiratory therapist after lunch. She is admitted with a diagnosis of pneumonia. She is unable to give any other history. She has no recollection of why she was transferred to the hospital. PAST MEDICAL HISTORY: Remarkable for; 1. Lipid disorder. 2. Hypertension. 3. History of atrial fibrillation. 4. History of pacemaker. 5. History of cardiomyopathy. 6. History of COPD. 7. History of seizure disorder. 8. History of coronary artery disease. 9. Chronic renal insufficiency. 10. History of surgical repair of a wrist fracture. SOCIAL HISTORY: She lives at [place]. She is a nonsmoker, nondrinker, nondrug user. FAMILY HISTORY: Non contributory. ALLERGIES: SHE REPORTS ALLERGIES TO HYDROCODONE, CODEINE AND SULFA. REVIEW OF SYSTEMS: A 10-point review of systems completed is not reliably obtainable. PHYSICAL EXAMINATION: VITAL SIGNS: She is afebrile, heart rate 63, respiratory rate 16, oximetry is 94% on 4 L, blood pressure 153/54. HEAD AND NECK: Unremarkable. LUNGS: Clear. HEART: Regular rhythm. S1 and S2 are normal. ABDOMEN: Soft and nontender. EXTREMITIES: Without clubbing, cyanosis, or edema. NEUROLOGIC: Grossly nonfocal. She now know that she is in the hospital, but Respiratory Therapy says she could not answer that question earlier today. LABORATORY DATA: White count 7, hemoglobin 10.7, platelets 237. Sodium 141, potassium 2.9, chloride 101, bicarb 26, BUN 49, creatinine 2.89. Chest x-ray is unchanged compared to old films. Creatinine is unchanged compared to old lab. IMPRESSION: Altered mental status, was transient? secondary to pneumonia. I reviewed her chest x-ray and I do not see any clear-cut alveolar infiltrate. I agree with antimicrobial therapy pending cultures. We will be happy to follow with the other physicians following her. She wants Dr. Silvestre Hooks to be notified of her admission since he is her primary care provider. This is a 50 minute consult with greater than 50% of time spent on unit coordinating care. Job ID: [id number] [facility]
--- NOTE | 2019-01-26 02:19 | HP ---
PCP: Dr. Silvestre Hooks. CHIEF COMPLAINT: Respiratory distress. Patient presented to the emergency department, does have an iao-ay-hcdwtlal DNR/ DNI and daughter with power of trust and estates attorney who agrees patient to be DNAR. However, patient has a longstanding history of COPD and systolic heart failure status post AICD placement, paroxysmal atrial fibrillation history and CKD stage 4, for which she is on high dose Lasix to produce any urine, found to have exacerbations of COPD and CHF and cultures resulted in Staph bacteremia and patient's potassium trended down. Patient was stabilized with desaturation down into the 70s on room air with a Venturi mask and was able to saturate well, has been titrated down to 2 L nasal cannula over the day. She was so tired from previous respiratory effort, was unable ask questions at bedside. Daughter was not at bedside at time of exam. Unable to perform review of systems. Review of past medical, social, surgical history, however. ALLERGIES: TO SULFA, CODEINE, AND VICODIN. PAST MEDICAL HISTORY: Hyperlipidemia; gastroesophageal reflux disease; paroxysmal atrial fibrillation; osteoarthritis; CKD, stage 4; AICD placement; systolic heart failure; COPD; prior pressure ulcers; peripheral vascular disease; idiopathic neuropathy; hypertension; anxiety; and recurrent depression, major. MEDICATIONS: Home medications include; 1. Amlodipine 10 mg. 2. Famotidine 20 mg at bedtime. 3. Pantoprazole 40 mg once daily. 4. Eszopiclone 2 mg at bedtime. 5. Spiriva 18 mcg daily. 6. Nitroglycerin 0.3 sublingual p.r.n. chest pain. 7. Zofran 4 mg q.8 hours p.r.n. nausea. 8. Keppra 250 mg once daily. 9. Milk of magnesia 30 mL p.r.n. constipation. 10. Zyrtec 10 mg daily. 11. Lyrica 150 mg twice daily. 12. Hydralazine 25 mg two tabs t.i.d. 13. Carvedilol 12.5 mg twice daily. 14. Furosemide alternating 20 mg every other day, 40 mg every other day. 15. Tramadol 50 mg p.r.n. pain 6 hours. 16. Clonidine one tablet at bedtime. 17. Aspirin 81 mg. 18. Klor-Con 20 mEq daily. Status post right carotid endarterectomy graft placement; right and left common iliac; cataract removal, bilateral; unspecified left wrist surgery, status post ORIF of left hip. Patient reports to be nonsmoker. Lives with assisted living. LABORATORY WORK: Potassium is trended down to 2.9, creatinine of 2.8, and sodium 141. Troponins x3 are 0.03, 0.04, and 0.03. BNP of 3050. Lactic acid 0.6 and magnesium 1.9. Urinalysis, no nitrites, no leukocyte esterase, and no wbc's. Staph aureus present in one of two blood culture. Urine culture negative at 12 hours. Chest x-ray on admission consistent with congestive heart failure, unchanged from prior x-ray. CT head; no acute intracranial bleeding. Sinus mucosal disease present. PHYSICAL EXAMINATION: VITAL SIGNS: On review of vital signs, this morning, temperature of 97.5, pulse of 63, respiratory rate of 17, oxygen saturation 96% on Venturi mask, and blood pressure 173/69. GENERAL: Patient is somnolent, difficult to arouse, but will open eyes, nod head, go back to sleep. HEENT: Head is otherwise normocephalic and atraumatic. Pupils equal and round. Oral mucosa is dry with Venturi mask blowing. HEART: At the time of my exam is regular rate and rhythm. No murmurs are auscultated. LUNGS: With coarse breath sounds bilaterally, diminished breath sounds bilateral bases. ABDOMEN: Soft, nontender. EXTREMITIES: Lower extremities without significant edema. Patient with mild pressure ulcer to heel. ASSESSMENT AND PLAN: Acute on chronic respiratory failure secondary to congestive heart failure and chronic obstructive pulmonary disease exacerbation exacerbated by sepsis secondary to Staph bacteremia; severe hypokalemia; paroxysmal atrial fibrillation; chronic kidney disease, stage 4. Continuing much of patient's home medications. At this point in time, we will attempt to continue Lasix per hospital dose twice of outpatient 40 and 80 every other day. This subsequently discontinued following pulmonology evaluation. Patient on vancomycin for Staph until susceptibilities return. Given lung coverage. Rocephin and azithromycin were initiated. Patient given magnesium sulfate to help support potassium replacement, currently on IV replacement. Follow up on serial checks in the morning. No reports of diarrhea at this point in time per nursing staff. Palliative care consultation to help with patient's comfort. Titrated diet as the patient improved down to nasal cannula this evening. We will look to deescalate antibiotics as cultures and sensitivities return. We will look to give prophylactic Lovenox as well. Breathing treatments and steroids have been initiated. Job ID: [id number] [id number]
[2019-01-26] MEDS: cefTRIAXone\\ROCEPHIN 2 GM in Sodium Chloride 0.9% 100 ML IVPB SCH (02:28)
[2019-01-26] MEDS: Acetaminophen 500 MG TAB PO PRN ×2 (03:31→13:05)
[2019-01-26] MEDS: Azithromycin 500 MG in Sodium Chloride 0.9% 250 ML 250 ML IVPB SCH (03:32)
[2019-01-26] MEDS: hydrALAZINE 20 MG/ML VIAL SLOW IVP PRN ×2 (04:12→22:44)
[2019-01-26 06:52] LABS: ALT (SGPT) 10 U/L (8-55); AST (SGOT) 21 U/L (5-34); Albumin 3.4 g/dL (3.4-4.8); Alkaline Phosphatase 62 U/L (40-150); Anion Gap 11 mmol/L (10-20); BUN (Urea Nitrogen) 55 mg/dL (9.8-20.1); Bilirubin, Total 0.3 mg/dL (0.2-1.2); Calc. Creatinine Clearance 16 mL/min (70-130); Calcium 8.4 mg/dL (7.8-10.44); Carbon Dioxide 29 mmol/L (23-31); Chloride 105 mmol/L (98-107); Estimated GFR-MDRD 15; Globulin 2.4 g/dL (2.4-3.5); Glucose 123 mg/dL (83-110); Protein, Total 5.8 g/dL (6.0-8.3); Sodium 142 mmol/L (136-145); Troponin I 0.063 ng/mL (< 0.028)
[2019-01-26] MEDS ORDERED: Potassium Chloride 10 MEQ in Premix Bag 1 BAG IVPB SCH (08:00)
[2019-01-26] MEDS: Pregabalin 75 MG CAP PO SCH ×2 (08:06→20:06)
[2019-01-26] MEDS: Potassium Chloride 20 MEQ TAB PO SCH ×2 (08:06→20:05)
[2019-01-26] MEDS: levETIRAcetam 500 MG TAB PO SCH (08:07)
[2019-01-26] MEDS: Famotidine 20 MG TAB PO SCH (08:08)
[2019-01-26] MEDS: traMADol HCl 50 MG TAB PO SCH ×3 (08:08→20:06)
[2019-01-26] MEDS: predniSONE 20 MG TAB PO SCH (08:09)
[2019-01-26] MEDS: Furosemide 40 MG TAB PO SCH (08:10)
[2019-01-26] MEDS: Aspirin Chewable 81 MG TAB PO SCH (08:10)
[2019-01-26] MEDS: Isosorbide Dinitrate 20 MG TAB PO SCH (08:11)
[2019-01-26] MEDS: Carvedilol 6.25 MG TAB PO SCH ×2 (08:11→20:05)
[2019-01-26] MEDS: Amlodipine 10 MG TAB PO SCH (08:12)
--- NOTE | 2019-01-26 08:41 | PRG ---
DATE OF SERVICE: 01/26/2019 SUBJECTIVE: Ms. Najera is awake and alert. She does not have any medical complaints. OBJECTIVE: VITAL SIGNS: Temperature is 97.7, pulse 58, O2 saturations 92% on 2 L, and blood pressure 156/66. LUNGS: Clear bilaterally. HEART: Reveals no murmur. ABDOMEN: Soft and nontender. Bowel sounds are present and active. LABORATORY DATA: Her sodium is 142, potassium 3.0, chloride 105, CO2 of 29, and creatinine 2.94. Blood cultures positive for Staphylococcus aureus. IMPRESSION: 1. Septicemia. 2. Hypokalemia. 3. History of chronic obstructive pulmonary disease. 4. History of diastolic heart failure. 5. Recent change in living status from longterm to assisted living. PLAN: 1. The patient may continue the current antibiotic treatment. 2. Attempt to correct potassium both IV and p.o. 3. I have discussed the findings with the patient, possible need for a snf facility was discussed. Job ID: [id number]
[2019-01-26] MEDS: valACYclovir 500 MG TAB PO SCH (09:46)
--- NOTE | 2019-01-26 09:50 | PRG ---
DATE OF SERVICE: 01/26/2019 SUBJECTIVE: This morning, she appears to be in no acute distress. Denies any pain or discomfort. Denies any shortness of breath. She has blood cultures positive for Staph, awaiting identification. OBJECTIVE: VITAL SIGNS: Temperature 98, pulse 59, blood pressure 180/64, saturations are 98% on 2 L. CHEST: No wheezing or crackles. CARDIAC: Normal S1, S2. No gallop. ABDOMEN: No masses. ASSESSMENT: 1. Metabolic encephalopathy. 2. Sepsis, questionable pneumonia. 3. Renal failure. PLAN: 1. Await identification of a Staph. 2. Continue anti-Staph coverage. Pulmonary will follow. Job ID: [id number]
--- NOTE | 2019-01-26 12:04 | PDOC.PALCO ---
Palliative Care Consult - Consult Details Requesting Physician: Dr Garrett Reason for Consult: symptom management Family Members Present: none - Pertinent HPI Patient has long standing history of COPD, heart failure, and chronic kidney disease. Patient presented to the emergency room with pronounced respiratory distress. Patient can not recall how long at home she was compromised, states she has had continued complications from her chronic disease processes. DNAR as well as an OOHDNAR in place with her daughter as ROBERTO. Patient was significantly compromised in the emergency department, admitted for Acute respiratory distress, acute heart failure and sepsis. - Pertinent PMH Hyperlipidemia, GERD, atrial fibrillation, CKD IV, Systolic Heart Failure IV, COPD, PVD, HTN, anxiety with recurrent depression - Social History Smoking Status: Former smoker Smoking: quit greater than 1 year Alcohol Use: none Drug Use History: none Living Situation: independent - Medications MAR Reviewed: Yes - Allergies Allergies/Adverse Reactions: Allergies Allergy/AdvReac Type Severity Reaction Status Date / Time codeine Allergy Verified 01/25/19 01:31 hydrocodone bitartrate Allergy Verified 01/25/19 01:31 [From Vicodin] Sulfa (Sulfonamide Allergy Verified 01/25/19 01:31 Antibiotics) - Subjective Today bernard was awake, alert and oriented. When I introduced myself and purpose of visit conversation led to a life review. Patient with complicated grief over her husbands in 1966. She raised tow daughters on her won here in [facility]. Patient states she is aware that her smoking caused her chronic conditions and that she has declined in the past few years. ROS: Shortness of breath, voiced no other specific complaints. - Objective Vital Signs: Vital Signs - Most Recent Temp Pulse Resp BP Pulse Ox 98.1 F 59 L 16 180/64 H 98 01/26/19 08:00 01/26/19 11:39 01/26/19 11:39 01/26/19 08:12 01/26/19 11:39 Palliative Performance Scale: 40 - Physical Exam Constitutional: NAD Deviation from normal: Chronically ill appearing HEENT: PERRLA, moist MMs, EOMI Deviation from normal: Labored respirations, diminished to bases, mildly coarse to upper lobes Cardiovascular: no significant murmur Deviation from normal: slight perioribital edema Gastrointestinal: soft, non-tender, positive bowel sounds Neurological: moves all 4 limbs Deviation from normal: poor turgor, thin fragile skin - Problem List (1) Palliative care encounter Code(s): Z51.5 - ENCOUNTER FOR PALLIATIVE CARE Current Visit: Yes Status: Acute (2) COPD exacerbation Code(s): J44.1 - CHRONIC OBSTRUCTIVE PULMONARY DISEASE W (ACUTE) EXACERBATION Current Visit: No Status: Acute (3) Congestive heart failure (CHF) Code(s): I50.9 - HEART FAILURE, UNSPECIFIED Current Visit: No Status: Chronic - Plan/Recommendations Plan: Initial visit, patient gave life review. No specific complaint. Will follow up to assess interventions to promote comfort for patient. She expressed sadness over possibly not returning home. Will discuss therapeutic measures to promote optimal life as disease trajectory towards decline continues. [90] minutes spent on this encounter with >50% of the time in counseling and coordination of care. Thank you for this very appropriate consult.
[2019-01-26] MEDS: Enoxaparin Sodium 30 MG/0.3 ML SYRINGE SC SCH (20:05)
[2019-01-26] MEDS: Vancomycin HCl 500 MG in Sodium Chloride 0.9% 100 ML IVPB SCH (20:07)
[2019-01-26 20:19] LABS: Vancomycin, Trough 11.8 ug/mL
[2019-01-26] MEDS ORDERED: Vancomycin HCl 750 MG in Sodium Chloride 0.9% 250 ML 250 ML IVPB SCH (21:00)
[2019-01-27] MEDS: cefTRIAXone\\ROCEPHIN 2 GM in Sodium Chloride 0.9% 100 ML IVPB SCH (03:54)
[2019-01-27] MEDS: Azithromycin 500 MG in Sodium Chloride 0.9% 250 ML 250 ML IVPB SCH (03:54)
[2019-01-27 05:32] LABS: #Lymphocytes 0.4 thou/uL (1.20-3.40); #Monocytes 0.7 thou/uL (0.11-0.59); %Basophils 0.1 % (0.0-1.0); %Eosinophils 0.3 % (0.0-10.0); %Lymphocytes 6.8 % (21.0-51.0); %Monocytes 11.4 % (0.0-10.0); %Neutrophils 81.4 % (42.0-75.0); Hemoglobin 9.9 g/dL (12.0-16.0); Mean Corpuscular HGB CONC 32.7 g/dL (32.0-36.0); Mean Corpuscular Hemoglobin 30.4 pg (27.0-31.0); Mean Corpuscular Volume 93.1 fL (78.0-98.0); Mean Platelet Volume 7.4 fL (7.4-10.4); Platelet Count 247 thou/uL (130-400); RBC Distribution Width 12.9 % (11.5-14.5); Red Blood Cell (RBC) Count 3.24 mill/uL (4.20-5.40); White Blood Cell (WBC) Count 6.2 thou/uL (4.8-10.8)
[2019-01-27 05:49] LABS: Anion Gap 15 mmol/L (10-20); BUN (Urea Nitrogen) 56 mg/dL (9.8-20.1); Calc. Creatinine Clearance 20 mL/min (70-130); Calcium 8.3 mg/dL (7.8-10.44); Carbon Dioxide 25 mmol/L (23-31); Chloride 105 mmol/L (98-107); Estimated GFR-MDRD 19; Glucose 108 mg/dL (83-110); Potassium 3.5 mmol/L (3.5-5.1); Sodium 141 mmol/L (136-145)
[2019-01-27] MEDS: Pregabalin 75 MG CAP PO SCH ×2 (08:03→21:15)
[2019-01-27] MEDS: Potassium Chloride 20 MEQ TAB PO SCH ×2 (08:03→21:18)
[2019-01-27] MEDS: levETIRAcetam 500 MG TAB PO SCH (08:04)
[2019-01-27] MEDS: Isosorbide Dinitrate 20 MG TAB PO SCH (08:05)
[2019-01-27] MEDS: predniSONE 20 MG TAB PO SCH (08:05)
[2019-01-27] MEDS: Furosemide 80 MG TAB PO SCH (08:05)
[2019-01-27] MEDS: valACYclovir 500 MG TAB PO SCH (08:05)
[2019-01-27] MEDS: Famotidine 20 MG TAB PO SCH (08:06)
[2019-01-27] MEDS: Aspirin Chewable 81 MG TAB PO SCH (08:06)
[2019-01-27] MEDS: Amlodipine 10 MG TAB PO SCH (08:37)
[2019-01-27] MEDS: Carvedilol 6.25 MG TAB PO SCH ×2 (08:40→21:17)
[2019-01-27] MEDS: traMADol HCl 50 MG TAB PO SCH ×3 (08:40→21:16)
[2019-01-27] MEDS: Linezolid 600 MG in Premix Bag 1 BAG IVPB SCH ×2 (08:59→21:41)
--- NOTE | 2019-01-27 09:06 | PRG ---
DATE OF SERVICE: 01/27/2019 SUBJECTIVE: This morning, she is tearful. OBJECTIVE: VITAL SIGNS: Saturations 99% on 2 L, temperature 97, pulse 61, blood pressure 179/75. GENERAL: Denies any difficulty breathing. CHEST: Decreased breath sounds and wheezing. CARDIAC: Normal S1, S2. No gallops. ABDOMEN: No masses. LABORATORY DATA: Creatinine 2.46. White count 6000. Last chest x-ray showed left-sided pneumonia. IMPRESSION: Methicillin-resistant Staphylococcus aureus sepsis, possibly secondary pneumonia because of renal function. I switched her over to Zyvox. Switch her to a p.o. medication later. She needs two weeks of anti-Staph coverage. Eventually placement. Chest x-ray being ordered at baseline. Job ID: [id number]
--- NOTE | 2019-01-27 09:07 | PRG ---
DATE OF SERVICE: 01/27/2019 SUBJECTIVE: Ms. Najera is awake and alert. She verbalizes no complaints. OBJECTIVE: VITAL SIGNS: Temperature 97.5, blood pressure 179/75. LUNGS: Clear. HEART: Reveals no murmur. LABORATORY DATA: Hemoglobin 9.9, hematocrit 30.1, and white blood count 6.2. Sodium 141, potassium 3.5, chloride 105, CO2 of 25, and BUN 2.46. Blood cultures positive for methicillin-resistant Staph, it is sensitive to rifampin, tetracycline, doxycycline as well as gentamicin. Other cultures otherwise negative. IMPRESSION: 1. Staph sepsis. 2. Chronic obstructive pulmonary disease. 3. Diastolic heart failure. PLAN: I have discussed with the patient the findings. We will continue on current IV vancomycin. We will discontinue other antibiotics. I will eventually place her on p.o. rifampin. I have discussed the fact that I do not think she can exist well at her current assisted living situation. We will continue with halfway facility placement. Job ID: [id number]
--- NOTE | 2019-01-27 09:15 | RAD ---
EXAM: Single view of the chest HISTORY: Pneumonia COMPARISON: 01/24/2019 FINDINGS: Single view of the chest shows an enlarged but stable cardiomediastinal silhouette. Athero sclerotic calcific lesions are seen in the aorta. There is no evidence of consolidation, mass, or pleural effusion. The bones are unremarkable. IMPRESSION: Cardiomegaly without evidence of acute cardiopulmonary disease
[2019-01-27] MEDS: Enoxaparin Sodium 30 MG/0.3 ML SYRINGE SC SCH (21:18)
[2019-01-28] MEDS: Acetaminophen 500 MG TAB PO PRN (01:03)
[2019-01-28] MEDS: Furosemide 40 MG TAB PO SCH (07:57)
[2019-01-28] MEDS: Aspirin Chewable 81 MG TAB PO SCH (07:57)
[2019-01-28] MEDS: Potassium Chloride 20 MEQ TAB PO SCH ×2 (07:57→20:06)
[2019-01-28] MEDS: valACYclovir 500 MG TAB PO SCH (07:57)
[2019-01-28] MEDS: Isosorbide Dinitrate 20 MG TAB PO SCH (07:58)
[2019-01-28] MEDS: Pregabalin 75 MG CAP PO SCH ×2 (07:59→20:06)
[2019-01-28] MEDS: predniSONE 20 MG TAB PO SCH (08:00)
[2019-01-28] MEDS: levETIRAcetam 500 MG TAB PO SCH (08:00)
[2019-01-28] MEDS: Amlodipine 10 MG TAB PO SCH (08:01)
[2019-01-28] MEDS: Carvedilol 6.25 MG TAB PO SCH ×2 (08:01→20:05)
[2019-01-28] MEDS: traMADol HCl 50 MG TAB PO SCH ×3 (08:01→20:05)
[2019-01-28] MEDS: Famotidine 20 MG TAB PO SCH (08:01)
[2019-01-28] MEDS: Linezolid 600 MG in Premix Bag 1 BAG IVPB SCH (08:03)
--- NOTE | 2019-01-28 09:45 | PRG ---
DATE OF SERVICE: 01/28/2019 SUBJECTIVE: This morning, awake, alert, and responsive, in no distress. OBJECTIVE: VITAL SIGNS: Saturations are 94% on 2 L, temperature , pulse 67, blood pressure 186/69. DIAGNOSTIC STUDIES: Chest x-ray yesterday did not show any acute infiltrates. Previously, there was a left-sided pneumonia. MRSA pneumonia, sepsis, probably secondary pneumonia. DISPOSITION: She can probably be transferred at any time out of the hospital to be followed by primary care physician. Total of 2 weeks of anti-Staph antibiotics. Job ID: [id number]
--- NOTE | 2019-01-28 11:56 | PRG ---
DATE OF SERVICE: 01/28/2019 SUBJECTIVE: Ms. Najera is awake and alert. She verbalizes no complaints. She has no trouble breathing. OBJECTIVE: VITAL SIGNS: Temperature 97.5, pulse 75, O2 sats 95% on room air. GENERAL: She is alert, active, in no distress. LUNGS: Clear. HEART: No murmur. ABDOMEN: Soft, nontender. Bowel sounds are present and active. DIAGNOSTIC DATA: Blood culture is positive for one methicillin Staph aureus. It is sensitive to vancomycin, sensitive to oral antibiotics of rifampin. IMPRESSION: 1. Staph sepsis. 2. Chronic obstructive pulmonary disease. 3. Chronic renal insufficiency. PLAN: The patient will continue current IV antibiotics, although we start transitioning her hopefully to oral antibiotics by tomorrow. I had a long extensive discussion with the patient about placement. I do not believe she can live in assisted living. She needs to strongly consider fdc facility. She has consented to placement for this. Job ID: [id number]
[2019-01-28] MEDS: hydrALAZINE 20 MG/ML VIAL SLOW IVP PRN (16:38)
--- NOTE | 2019-01-28 16:53 | PQF ---
FRANCISCO BENNETT RICHARD A MD [id number] [id number]- [id number] CLINICAL DOCUMENTATION IMPROVEMENT CLARIFICATION FORM: ICD-10 Updated PLEASE DO AN ADDENDUM TO THE PROGRESS NOTE WITH ANY DOCUMENTATION UPDATES OR ADDITIONS AND CARRY THROUGH TO DC SUMMARY. THANK YOU. DATE: 01/28/2019 ATTN:DR. Anil TREVINO Please exercise your independent, professional judgment in responding to the clarification form. Clinical indicators are provided on the bottom of this form for your review. Please check appropriate box(s): [ ] Pneumonia secondary to (specify organism / underlying disease) [ ] Simple Pneumonia (community acquired - nosocomial) [ ] Other diagnosis [ ] Unable to determine In addition, please specify: Present on Admission (POA): [ ] Yes [ ] No [ ] Unable to determine For continuity of documentation, please document condition throughout progress notes and discharge summary. Thank You. CLINICAL INDICATORS - SIGNS / SYMPTOMS / LABS 01/24 ED : TEMP 101.3, ED PHYSICIAN DX: HYPOXIA, SEPSIS 01/25 CONSULT (ANUJ) SHE IS ADMITTED WITH A DX OF PNEUMONIA, IMPRESSION: ALTERED MENTAL STATUS, WAS TRANSIENT? SECONDARY TO PNEUMONIA. i REVIEWED HER CHEST X RAY AND I DO NOT SEE ANY CLEAR CUT ALVEOLAR INFILTRATE. I AGREE WITH ANTIMICROBIAL THERAPY PENDING CULTURES. 01/26 PN ( URIEL) ASSESSMENT: 2) SEPSIS, QUESTIONABLE PNEUMONIA 01/27 PN (BRANDON) IMPRESSION: MRSA , POSSIBLE SECONDARY PNEUMONIA BECAUSE OF RENAL FUNCTION. RISK: H & P ( TYREE) ADVANCED AGE ASSISTED LIVING RESIDENT HX OF CKD 4 DX SEPSIS, ACUTE ON CHRONIC RESP FAILURE TREATMENTS: PULMONOLOGY CONSULT SERIAL CHEST XRAY ZITHROMAX IV (01/25-01/27) ROCEPHIN IV (01/25-01/27) THANK YOU! DE (This form is maintained as a part of the permanent medical record) 2014 [employer]. All Rights Reserved [email or web address] [phone] [email or web address]
--- NOTE | 2019-01-28 17:15 | PQF ---
FRANCISCO BENNETT RICHARD A MD [id number] T4-B- 4434 [id number] CLINICAL DOCUMENTATION IMPROVEMENT CLARIFICATION FORM: ICD-10 Updated PLEASE DO AN ADDENDUM TO THE PROGRESS NOTE WITH ANY DOCUMENTATION UPDATES OR ADDITIONS AND CARRY THROUGH TO DC SUMMARY. THANK YOU. DATE: ATTN: Please exercise your independent, professional judgment in responding to the clarification form. Clinical indicators are provided on the bottom of this form for your review. Please check appropriate box(s): HEART FAILURE: A. TYPE: [ ] Systolic / HFrEF [ ] Diastolic / HFpEF [ ] Combined Systolic / Diastolic B. ACUITY [ ] Acute on Chronic [ ] Chronic [ ] Other diagnosis [ ] Unable to determine In addition, please specify: Present on Admission (POA): [ ] Yes [ ] No [ ] Unable to determine For continuity of documentation, please document condition throughout progress notes and discharge summary. Thank You. CLINICAL INDICATORS - SIGNS / SYMPTOMS / LABS 01/25 BNP 3051.0 01/25 ED: PT PRESENTS FOR HYPOXIA AND SATURATION OF 82% ON 3L/NC UPON EMS ARRIVAL/ / ON ADMISSION TO ED O2 SAT 94-96% NRB 01/25 H & P ( TYREE) THE PATIENT HAS A LONG STANDING HISTORY OF COPD AND SYSTOLIC HEART FAILURE; -- A/P : ACUTE ON CHRONIC RESP FAILURE SECONDARY TO CONGESTIVE HEART FAILURE AND COPD EXACERBATION EXACERBATED BY SEPSIS SECONDARY TO STAPH BACTEREMIA. 01/26 -01/27 PN (URIEL) IMPRESSION: 4) HISTORY OF DIASTOLIC HEART FAILURE RISK: ADVANCED AGE 83 HX CHF, COPD, HTN, CKD4 (H & P/ TYREE) TREATMENTS: BREATHING TREATMENTS PULMONOLOGY CONSULT SUPPLEMENTAL OXYGEN THANK YOU ! DE (This form is maintained as a part of the permanent medical record) 2014 [employer]. All Rights Reserved AKASH [phone] MTDIsabelle
[2019-01-28] MEDS: Linezolid 600 MG TAB PO SCH (20:05)
[2019-01-28] MEDS: Enoxaparin Sodium 30 MG/0.3 ML SYRINGE SC SCH (20:06)
[2019-01-29] MEDS: Acetaminophen 500 MG TAB PO PRN (02:00)
[2019-01-29 06:24] LABS: Anion Gap 13 mmol/L (10-20); BUN (Urea Nitrogen) 50 mg/dL (9.8-20.1); Calc. Creatinine Clearance 18 mL/min (70-130); Calcium 8.7 mg/dL (7.8-10.44); Carbon Dioxide 29 mmol/L (23-31); Chloride 102 mmol/L (98-107); Estimated GFR-MDRD 17; Glucose 96 mg/dL (83-110); Potassium 4.3 mmol/L (3.5-5.1); Sodium 140 mmol/L (136-145)
[2019-01-29 06:25] LABS: Band 5 % (5-11); Hemoglobin 10.1 g/dL (12.0-16.0); Lymphocytes 10 % (21-51); MDiff Complete? YES; Mean Corpuscular Hemoglobin 30.3 pg (27.0-31.0); Mean Corpuscular Volume 91.6 fL (78.0-98.0); Mean Platelet Volume 7.6 fL (7.4-10.4); Monocytes 5 % (0-10); Neutrophil 80 % (42-75); Platelet Count 274 thou/uL (130-400); RBC Distribution Width 12.8 % (11.5-14.5); Red Blood Cell (RBC) Count 3.35 mill/uL (4.20-5.40); White Blood Cell (WBC) Count 7.1 thou/uL (4.8-10.8)
--- NOTE | 2019-01-29 08:49 | PRG ---
DATE OF SERVICE: 01/29/2019 SUBJECTIVE: This morning, she is awake, alert, responsive, in no distress. OBJECTIVE: VITAL SIGNS: Saturations are 92%, temperature 97, pulse 61, blood pressure 183/66. CHEST: Decreased breath sounds. No wheezing. CARDIAC: Normal S1 and S2. No gallops. ABDOMEN: No masses. LABORATORY DATA: Creatinine is . White count 7000. IMPRESSION: 1. Methicillin-resistant Staphylococcus aureus sepsis. Two weeks antibiotics. 2. Baseline underlying chronic obstructive pulmonary disease. PLAN: Disposition as per primary care physician. We will follow at a distance. Call if needed. Job ID: [id number]
[2019-01-29] MEDS: levETIRAcetam 500 MG TAB PO SCH (09:49)
[2019-01-29] MEDS: Carvedilol 6.25 MG TAB PO SCH (09:51)
[2019-01-29] MEDS: Aspirin Chewable 81 MG TAB PO SCH (09:53)
[2019-01-29] MEDS: Furosemide 80 MG TAB PO SCH (09:53)
[2019-01-29] MEDS: Pregabalin 75 MG CAP PO SCH (09:53)
[2019-01-29] MEDS: Famotidine 20 MG TAB PO SCH (09:55)
[2019-01-29] MEDS: traMADol HCl 50 MG TAB PO SCH (09:57)
[2019-01-29] MEDS: predniSONE 20 MG TAB PO SCH (09:57)
[2019-01-29] MEDS: Amlodipine 10 MG TAB PO SCH (09:59)
[2019-01-29] MEDS: Isosorbide Dinitrate 20 MG TAB PO SCH (10:00)
[2019-01-29] MEDS: Potassium Chloride 20 MEQ TAB PO SCH (10:02)
[2019-01-29 12:18] VITALS: BP 183/64; TEMP 97.9
[2019-01-29] MEDS: Linezolid 600 MG TAB PO SCH (13:14)
[2019-01-29] MEDS: valACYclovir 500 MG TAB PO SCH (13:15)
--- NOTE | 2019-01-29 14:03 | PRG ---
DATE OF SERVICE: 01/29/2019 SUBJECTIVE: She is awake and alert, has no complaints. She states she is feeling good. OBJECTIVE: VITAL SIGNS: Blood pressure is 168/71, pulse 59, O2 sats 96% on 2 L. LUNGS: Clear. HEART: Reveals no murmur. Regular rate and rhythm. LABORATORY DATA: White blood count 7.1, hemoglobin 10.1, hematocrit 30.7. BUN is 50 and creatinine 2.75. IMPRESSION: 1. Methicillin-resistant Staph aureus sepsis. 2. Chronic renal insufficiency. 3. Obstructive pulmonary disease. 4. Diastolic heart failure. PLAN: The patient has been accepted at [facility]. We will continue current medications at this time, which consist of Zyvox 600 mg b.i.d. for 10 more days. The patient is comfortable being transferred to shelter facility after extensive discussion with her. Job ID: [id number]
== END 2019-01-29 13:25 | DRG 871 ==
LOC: ERS 18:15 → T4-B 23:35
PROVIDERS: ADMIT Family Medicine; ATTEND Family Medicine
DX: A41.02 Sepsis due to Methicillin resistant Staphylococcus aureus (principal); G93.41 Metabolic encephalopathy; I13.0 Hypertensive heart and chronic kidney disease with heart failure and stage 1 through stage 4 chronic kidney disease, or unspecified chronic kidney disease; N18.4 Chronic kidney disease, stage 4 (severe); I50.30 Unspecified diastolic (congestive) heart failure; A41.9 Sepsis, unspecified organism; Z66 Do not resuscitate; J44.9 Chronic obstructive pulmonary disease, unspecified; E78.5 Hyperlipidemia, unspecified; K21.9 Gastro-esophageal reflux disease without esophagitis; I48.0 Paroxysmal atrial fibrillation; M19.91 Primary osteoarthritis, unspecified site; F41.9 Anxiety disorder, unspecified; F32.9 Major depressive disorder, single episode, unspecified; E87.6 Hypokalemia; Z51.5 Encounter for palliative care; Z98.1 Arthrodesis status; Z88.2 Allergy status to sulfonamides; Z88.5 Allergy status to narcotic agent; Z88.8 Allergy status to other drugs, medicaments and biological substances; Z79.82 Long term (current) use of aspirin; Z79.899 Other long term (current) drug therapy
CPT/HCPCS: 36415; 51701; 70450; 71045; 80048; 80053; 80202; 81003; 81015; 82553; 83605; 83735; 83880; 84484; 85007; 85025; 85027; 87040; 87077; 87086; 87149; 87186; 93005; 94640; 94760; 96365; 96375; A4353; J0360; J0456; J0696; J1650; J1940; J2020; J2543; J2930; J3370; J3475; J3480; J3490; J7050; J7512; J7620

== ENCOUNTER 2019-02-12 07:43 | Emergency (ER) | payer MEDICARE, OTHER ==
[2019-02-12 08:17] LABS: Hemoglobin 8.4 g/dL (12.0-16.0); Mean Corpuscular HGB CONC 33.3 g/dL (32.0-36.0); Mean Corpuscular Hemoglobin 29.8 pg (27.0-31.0); Mean Corpuscular Volume 89.3 fL (78.0-98.0); Mean Platelet Volume 10.2 fL (7.4-10.4); Platelet Count 35 thou/uL (130-400); RBC Distribution Width 13.8 % (11.5-14.5); Red Blood Cell (RBC) Count 2.82 mill/uL (4.20-5.40); White Blood Cell (WBC) Count 4.6 thou/uL (4.8-10.8)
[2019-02-12 08:37] LABS: ALT (SGPT) 14 U/L (8-55); AST (SGOT) 14 U/L (5-34); Albumin 3.7 g/dL (3.4-4.8); Alkaline Phosphatase 60 U/L (40-150); Anion Gap 14 mmol/L (10-20); BUN (Urea Nitrogen) 58 mg/dL (9.8-20.1); Bilirubin, Total 0.4 mg/dL (0.2-1.2); CK (CPK) 88 U/L (29-168); Calc. Creatinine Clearance 0 mL/min (70-130); Calcium 8.9 mg/dL (7.8-10.44); Carbon Dioxide 26 mmol/L (23-31); Chloride 106 mmol/L (98-107); Estimated GFR-MDRD 14; Globulin 2.1 g/dL (2.4-3.5); Glucose 103 mg/dL (83-110); Protein, Total 5.8 g/dL (6.0-8.3); Sodium 142 mmol/L (136-145)
[2019-02-12 08:48] LABS: Band 6 % (5-11); Eosinophils 7 % (0-10); Lymphocytes 16 % (21-51); MDiff Complete? YES; Monocytes 13 % (0-10); Neutrophil 58 % (42-75); Ovalocytes SLIGHT = 2-5 cells (100X) (0-1/hpf); Platelet Morphology Comment Appears Decreased; Polychromasia SLIGHT = 2-3 cells (100X) (0-2/hpf)
[2019-02-12 10:12] LABS: Bacteria/HPF None Seen HPF (None Seen); Bilirubin Negative (Negative); Blood, Urine Negative (Negative); Clarity Clear (Clear); Glucose, Urine (Dipstick) Normal (Negative); Leukocyte Negative Leu/uL (Negative); Nitrite Negative (Negative); Protein, Urine (Dipstick) 50 mg/dL (Neg-Trace); RBC/HPF None Seen HPF (0-3); Squamous Epithelial 0-3 HPF (0-3); Urobilinogen Normal mg/dL (Less than 2); WBC/HPF 0-3 HPF (0-3)
== END 2019-02-12 09:09 ==
LOC: ERS 07:43
DX: D69.6 Thrombocytopenia, unspecified (principal); I11.0 Hypertensive heart disease with heart failure; I50.9 Heart failure, unspecified; E78.5 Hyperlipidemia, unspecified; I48.91 Unspecified atrial fibrillation; K21.9 Gastro-esophageal reflux disease without esophagitis; G47.00 Insomnia, unspecified; F41.9 Anxiety disorder, unspecified; F32.9 Major depressive disorder, single episode, unspecified; Z79.899 Other long term (current) drug therapy; Z79.82 Long term (current) use of aspirin
CPT/HCPCS: 51701; 81003; 81015; 82550; 96360

== ENCOUNTER 2019-03-09 04:06 | Inpatient (IN) | payer MEDICARE, OTHER ==
[2019-03-09] MEDS ORDERED: Piperacillin/Tazobactam 3.375 GM VIAL ONE (04:35)
[2019-03-09 04:49] LABS: #Basophils 0.1 thou/uL (0.0-0.2); #Eosinphils 0.2 thou/uL (0.0-0.7); #Lymphocytes 0.2 thou/uL (1.20-3.40); #Monocytes 1.3 thou/uL (0.11-0.59); #Neutrophils 9.4 thou/uL (1.40-6.50); %Basophils 0.7 % (0.0-1.0); %Eosinophils 1.9 % (0.0-10.0); %Lymphocytes 1.6 % (21.0-51.0); %Monocytes 11.4 % (0.0-10.0); %Neutrophils 84.3 % (42.0-75.0); Hemoglobin 8.9 g/dL (12.0-16.0); Mean Corpuscular Hemoglobin 29.9 pg (27.0-31.0); Mean Corpuscular Volume 90.6 fL (78.0-98.0); Mean Platelet Volume 8.6 fL (7.4-10.4); Platelet Count 173 thou/uL (130-400); RBC Distribution Width 15.8 % (11.5-14.5); Red Blood Cell (RBC) Count 2.98 mill/uL (4.20-5.40); White Blood Cell (WBC) Count 11.2 thou/uL (4.8-10.8)
[2019-03-09 05:12] LABS: ALT (SGPT) 26 U/L (8-55); AST (SGOT) 31 U/L (5-34); Albumin 3.8 g/dL (3.4-4.8); Alkaline Phosphatase 124 U/L (40-150); Anion Gap 14 mmol/L (10-20); BUN (Urea Nitrogen) 53 mg/dL (9.8-20.1); Bilirubin, Total 0.4 mg/dL (0.2-1.2); Calc. Creatinine Clearance 0 mL/min (70-130); Calcium 8.3 mg/dL (7.8-10.44); Carbon Dioxide 24 mmol/L (23-31); Chloride 105 mmol/L (98-107); Estimated GFR-MDRD 13; Glucose 118 mg/dL (83-110); Potassium 4.4 mmol/L (3.5-5.1); Protein, Total 5.8 g/dL (6.0-8.3); Sodium 139 mmol/L (136-145)
[2019-03-09 05:39] LABS: CKMB 2.2 ng/mL (0-6.6)
[2019-03-09 05:40] LABS: Bilirubin Negative (Negative); Clarity Clear (Clear); Glucose, Urine (Dipstick) Normal (Negative); Leukocyte Negative Leu/uL (Negative); Nitrite Negative (Negative); Protein, Urine (Dipstick) 70 mg/dL (Neg-Trace); RBC/HPF 0-3 HPF (0-3); Squamous Epithelial 0-3 HPF (0-3); Urobilinogen Normal mg/dL (Less than 2); WBC/HPF 0-3 HPF (0-3)
[2019-03-09 06:00] LABS: Blood, Urine 1+ (Negative)
[2019-03-09 06:01] LABS: Bacteria/HPF 1+ HPF (None Seen)
[2019-03-09] MEDS ORDERED: Furosemide 40 MG/4 ML VIAL ONE (06:18)
[2019-03-09] MEDS ORDERED: Aspirin 325 MG TAB ONE (06:18)
[2019-03-09 08:01] LABS: Troponin I 0.024 ng/mL (< 0.028)
[2019-03-09] MEDS ORDERED: Prevnar 13-Val Conj/PF 0.5 ML SYRINGE IM ONE (08:45)
[2019-03-09] MEDS ORDERED: Ondansetron ODT 4 MG TAB PO PRN (08:46)
[2019-03-09] MEDS ORDERED: Ondansetron PF 4 MG/2 ML Vial IVP PRN (08:46)
--- NOTE | 2019-03-09 10:15 | HP ---
PRIMARY CARE PHYSICIAN: Dr. Silvestre Hooks. CHIEF COMPLAINT: Shortness of breath and fever. HISTORY OF PRESENT ILLNESS: An 83-year-old female with past medical history significant for ischemic cardiomyopathy with ejection fraction of 15% to 20%, COPD, chronic respiratory failure on home oxygen, who was recently treated for COPD and pneumonia in January 2019, now brought in from the group home due to acute onset of worsening shortness of breath and fever. The patient with baseline exertional dyspnea and generalized weakness as well as chronic cough, was found to have hypoxia and fever during routine check in the group home. On further questioning, the patient reported that she has been having left-sided chest pain worse with respiratory effort and cough in the last 2 to 3 days prior to presentation. She reported that her cough is still close to baseline, but denied sputum production. She was found to have SpO2 in the low 80s on room air. She was supposed to be on 3 L nasal cannula oxygen. She was also found to have fever with 102.4 on presentation to the emergency room. Further evaluation in the ER showed mild leukocytosis as well as tachypnea and mild elevation in troponin. BNP also was elevated and the patient was treated with a bolus of normal saline 500 mL as well as vancomycin and Zosyn, and admitted for further evaluation. The patient denied nausea, vomiting, change in bowel habit, worsening leg swelling, dysuria, hematuria, hematemesis, dizziness, change in mental status, headaches, or falls. PAST MEDICAL HISTORY: 1. Hyperlipidemia. 2. Gastroesophageal reflux disease. 3. Paroxysmal atrial fibrillation. 4. Osteoarthritis. 5. CKD stage 4/5. 6. Ischemic cardiomyopathy with ejection fraction of 15% to 20%, status post AICD placement. 7. Chronic CHF. 8. COPD. 9. Chronic respiratory failure, on home oxygen. 10. Prior history of pressure ulcers. 11. Peripheral artery disease. 12. Neuropathy. 13. Hypertension. 14. Anxiety and depression. PAST SURGICAL HISTORY: 1. AICD placement. 2. Thoracentesis. 3. Left wrist surgery. FAMILY HISTORY: Reviewed, but noncontributory. SOCIAL HISTORY: The patient currently lives in the group home. She wants to be do not resuscitate. Daughter is the surrogate decision maker. ALLERGIES: 1. CODEINE. 2. HYDROCODONE BITARTRATE. 3. SULFA. HOME MEDICATIONS: 1. Clonidine 0.1 mg b.i.d. 2. Amlodipine 10 mg p.o. daily. 3. Artificial Tears eye drops. 4. Aspirin 81 mg p.o. daily. 5. Calcitriol 0.25 p.o. daily. 6. Carvedilol 12.5 mg p.o. b.i.d. 7. Colace 100 mg p.o. daily. 8. Famotidine 20 mg p.o. daily. 9. Furosemide 20 mg p.o. daily. 10. DuoNeb t.i.d. 11. Isosorbide dinitrate 30 mg p.o. daily. 12. Potassium chloride 20 mEq twice daily. 13. Keppra 250 mg once a day. 14. Lyrica 150 mg p.o. b.i.d. 15. Simethicone 125 mg p.o. daily. 16. Systane eye drop one drop three times daily. 17. Multivitamin with iron once daily. 18. Tramadol 50 mg t.i.d. 19. Guanfacine every 4 hours p.r.n. 20. Ibuprofen 400 mg t.i.d. p.r.n. 21. Imodium 2 mg p.o. daily p.r.n. 22. Sublingual nitroglycerin 0.4 mg as needed. REVIEW OF SYSTEMS: This is grossly limited due to the patient's condition. However, 12-point review of system performed was negative other than pertinent positives and negatives included in the history of present illness. PHYSICAL EXAMINATION: VITAL SIGNS: Initial vitals on presentation to the ER showed BP 154/50, pulse 69, respiratory rate 24, temperature 102.4, SPO2 79 on room air. GENERAL: Elderly female, in no obvious distress. Afebrile. Anicteric. Acyanotic. The patient is fatigued. HEENT: Normocephalic, atraumatic. Oral mucosa is moist. NECK: Supple with good range of motion. No obvious masses or JVD appreciated. CARDIOVASCULAR: Irregular rhythm and rate with normal heart sounds. Systolic murmur noted. RESPIRATORY: Fair air entry with scattered crackles, especially left base with decreased air entry noted. Work of breathing, however, is not increased. Use of accessory muscles is not appreciated. GASTROINTESTINAL: Full, soft, nontender, nondistended with normal bowel sounds. EXTREMITIES: Trace right leg edema. Other extremities are grossly normal with no erythema or edema. CENTRAL NERVOUS SYSTEM: Conscious and alert, oriented x3. Memory lapse is noted. Cranial nerves 2 through 12 are grossly intact. The patient moves all extremities, but weakly. DIAGNOSTIC DATA: CBC showed WBC count of 11.2, hemoglobin of 8.9, MCV of 90.6, platelets of 173. CMP showed sodium 139, potassium 4.4, chloride 105, CO2 of 24, BUN 53, creatinine 3.30, glucose 118, calcium 8.3, total bilirubin 0.4, AST 31, ALT 26, alkaline phosphatase 124, total protein 5.8, albumin 3.8, globulin 2.0. Initial lactic acid was 1.5. Initial troponin is 0.029, but repeat was 0.024. Initial BMP was 1189.9. Urinalysis showed light yellow clear urine with pH of 5.5, specific gravity of 1.012, urine protein of 70, 1+ blood. Ketones, nitrites, bilirubin, and leukocyte esterase were negative. Microscopy showed 0 to 3 RBCs, WBCs and squamous cells. EKG showed atrial fibrillation with controlled ventricular rate of 69. Chest x-ray reviewed by me showed increased bibasilar infiltrate with obliteration of left costophrenic angle consistent with left pleural effusion. Pneumonia could not be ruled out. ASSESSMENT: 1. Acute on chronic respiratory failure with hypoxia. 2. Sepsis: Given tachypnea and leukocytosis as well as well as fever of 102.4. The patient during previous hospitalization in January, was found to have MSSA bacteremia. She also has chronic cough from COPD and reported pleuritic chest pain on the left. Pneumonia remain a concern. 3. Presumed healthcare-associated pneumonia. 4. Chronic obstructive pulmonary disease with possible exacerbation. 5. Chronic systolic and diastolic heart failure with possible exacerbation. 6. Ischemic cardiomyopathy with ejection fraction of 15% to 20%. 7. Physical deconditioning. 8. Hypertension. PLAN: 1. Start broad-spectrum antibiotic therapy with vancomycin, Zosyn, and levofloxacin. This will be renally dosed. 2. Follow serial troponin. 3. Also, get repeat echocardiogram. 4. We will also get CT scan of the chest for further evaluation of the lung field as well as left-sided pleuritic chest pain and pleural effusion. 5. Hold diuretic at this time given worsening renal function. 6. Continue antihypertensives. 7. Consult Pulmonary. 8. PT/OT to evaluate and treat. 9. DVT prophylaxis with Lovenox. 10. Code status: Do not resuscitate. The patient's daughter is the surrogate decision maker. It is anticipated the patient will be hospitalized for more than [address] Silvestre Hooks will assume care of this patient from tomorrow, March 10, 2019. I have already discussed with him and he is in agreement with this plan. Job ID: [id number]
--- NOTE | 2019-03-09 10:17 | RAD ---
FRONTAL VIEW CHEST: INDICATIONS: Hypoxia. FINDINGS: There is left basilar density. Patchy alveolar opacification is seen at the right lower lung zone. These findings are superimposed upon diffuse interstitial prominence, enlarged cardiac silhouette, an d prominent pulmonary vasculature. IMPRESSION: Findings which favor edema, related to decompensated congestive heart failure. Left basilar density may relate to pleural fluid with adjacent atelectasis and/or pneumonia. Recommend continued followup. POS: TPC
[2019-03-09] MEDS: Enoxaparin Sodium 30 MG/0.3 ML SYRINGE SC SCH (10:59)
[2019-03-09] MEDS: Acetaminophen 325 MG TAB PO PRN ×2 (10:59→15:56)
[2019-03-09] MEDS ORDERED: Piperacillin/Tazobactam 3.375 GM in Sodium Chloride 0.9% 100 ML IVPB SCH (11:00)
[2019-03-09 11:16] VITALS: BMI 24.4
[2019-03-09 11:30] LABS: Troponin I Less than 0.010 ng/mL (< 0.028)
--- NOTE | 2019-03-09 11:43 | CT ---
CT CHEST WITHOUT CONTRAST ENHANCEMENT: HISTORY: Fever and shortness of breath. COMPARISON: 02/16/2014 FINDINGS: There are emphysematous lung changes seen. There is a left lower lobe infiltrative process. There i s a very small left pleural effusion. There are atelectatic changes in the right base and a tiny rig ht effusion. The thoracic aorta is normal in caliber. Coronary calcifications are seen. The visualized liver parenchymal shows no focal findings. There is a hyperechoic lesion involving th e posterolateral cortex of the left kidney. It has CT Hounsfield unit numbers of 25. This density w as present on the prior study but has increased slightly in size. It measures 1.5 cm on the current study, as compared to approximately 1.1 cm on the old study. This is a fairly minimal change, given the time frame. It is most likely a hemorrhagic cyst but is incompletely characterized. A CT with a nd without contrast would be required for more complete characterization. IMPRESSION: 1. Emphysematous lung change. 2. Small left pleural effusion with a left lower lobe pneumonic appearing infiltrate. 3. There is also atelectasis in the right lung base. 4. Indeterminate left renal lesion, as described above. POS: OFF
[2019-03-09] MEDS ORDERED: Amlodipine 10 MG TAB PO SCH (12:00)
[2019-03-09] MEDS ORDERED: Carvedilol 6.25 MG TAB PO SCH (12:15)
[2019-03-09] MEDS ORDERED: Famotidine 20 MG TAB PO SCH (12:15)
[2019-03-09] MEDS ORDERED: Isosorbide Dinitrate 20 MG TAB PO SCH (12:15)
[2019-03-09] MEDS ORDERED: Calcitriol 0.25 MCG CAP PO SCH (12:15)
[2019-03-09] MEDS: traMADol HCl 50 MG TAB PO PRN (14:06)
[2019-03-09] MEDS: Vancomycin HCl 1 GM in Premix Bag 1 BAG IVPB SCH (14:12)
[2019-03-09] MEDS ORDERED: Piperacillin/Tazobactam 2.25 GM VIAL ONE (15:49)
[2019-03-09] MEDS: Piperacillin/Tazobactam 2.25 GM in Sodium Chloride 0.9% 100 ML IVPB SCH ×2 (15:55→21:42)
[2019-03-09 18:12] LABS: Base Excess (BEa) 0.6 mEq/L (-2.0 to +3.0); CO2 Tension 39.4 mmHg (35.0-45.0); Calcium, Ionized 1.05 mmol/L (1.12-1.30); Carboxyhemoglobin (COHb) 1.5 gm% (0.0-3.0); Hemoglobin (Hb) 8.4 g/dL (12.0-16.0); pH, Arterial 7.42 (7.35-7.45)
[2019-03-09 18:13] LABS: O2 Tension (PaO2) 56.6 mmHg (> 60.0); Puncture Site LB
[2019-03-09] MEDS: Pregabalin 75 MG CAP PO SCH (21:42)
[2019-03-09] MEDS: guaiFENesin ER 600 MG TAB PO SCH (21:42)
[2019-03-09] MEDS: Carvedilol 6.25 MG TAB PO SCH (21:42)
[2019-03-09] MEDS ORDERED: Nitroglycerin 0.4 MG TAB (25 Tab Bottle) SL PRN (21:51)
[2019-03-10] MEDS: Acetaminophen 325 MG TAB PO PRN ×2 (00:59→13:18)
[2019-03-10] MEDS: Piperacillin/Tazobactam 2.25 GM in Sodium Chloride 0.9% 100 ML IVPB SCH ×4 (04:12→21:25)
[2019-03-10 05:45] LABS: #Lymphocytes 0.6 thou/uL (1.20-3.40); #Monocytes 1.5 thou/uL (0.11-0.59); #Neutrophils 12.2 thou/uL (1.40-6.50); %Basophils 0.3 % (0.0-1.0); %Eosinophils 0.3 % (0.0-10.0); %Lymphocytes 3.8 % (21.0-51.0); %Monocytes 10.7 % (0.0-10.0); Hemoglobin 8.4 g/dL (12.0-16.0); Mean Corpuscular HGB CONC 32.2 g/dL (32.0-36.0); Mean Corpuscular Hemoglobin 29.7 pg (27.0-31.0); Mean Corpuscular Volume 92.3 fL (78.0-98.0); Mean Platelet Volume 9.5 fL (7.4-10.4); Platelet Count 123 thou/uL (130-400); RBC Distribution Width 15.8 % (11.5-14.5); Red Blood Cell (RBC) Count 2.83 mill/uL (4.20-5.40); White Blood Cell (WBC) Count 14.4 thou/uL (4.8-10.8)
[2019-03-10 06:05] LABS: Anion Gap 13 mmol/L (10-20); BUN (Urea Nitrogen) 49 mg/dL (9.8-20.1); Calc. Creatinine Clearance 15 mL/min (70-130); Calcium 7.9 mg/dL (7.8-10.44); Carbon Dioxide 25 mmol/L (23-31); Chloride 105 mmol/L (98-107); Estimated GFR-MDRD 14; Glucose 103 mg/dL (83-110); Potassium 3.7 mmol/L (3.5-5.1); Sodium 139 mmol/L (136-145)
[2019-03-10] MEDS: Isosorbide Dinitrate 20 MG TAB PO SCH (08:16)
[2019-03-10] MEDS: Pregabalin 75 MG CAP PO SCH ×2 (08:18→21:25)
[2019-03-10] MEDS: Carvedilol 6.25 MG TAB PO SCH ×2 (08:19→21:24)
[2019-03-10] MEDS: Famotidine 20 MG TAB PO SCH (08:19)
[2019-03-10] MEDS: Amlodipine 10 MG TAB PO SCH (08:19)
[2019-03-10] MEDS: Aspirin Chewable 81 MG TAB PO SCH (08:19)
[2019-03-10] MEDS: Calcitriol 0.25 MCG CAP PO SCH (08:19)
[2019-03-10] MEDS: Enoxaparin Sodium 30 MG/0.3 ML SYRINGE SC SCH (08:20)
[2019-03-10] MEDS: traMADol HCl 50 MG TAB PO PRN ×2 (08:25→13:18)
[2019-03-10] MEDS: guaiFENesin ER 600 MG TAB PO SCH ×3 (08:26→21:25)
[2019-03-10] MEDS: Vancomycin HCl 1 GM in Premix Bag 1 BAG IVPB SCH (13:17)
[2019-03-10 13:33] LABS: Vancomycin, Trough 9.8 ug/mL
[2019-03-11] MEDS: Piperacillin/Tazobactam 2.25 GM in Sodium Chloride 0.9% 100 ML IVPB SCH ×4 (03:22→20:39)
[2019-03-11] MEDS: Pregabalin 75 MG CAP PO SCH ×2 (09:19→20:40)
[2019-03-11] MEDS: Isosorbide Dinitrate 20 MG TAB PO SCH (09:21)
[2019-03-11] MEDS: Enoxaparin Sodium 30 MG/0.3 ML SYRINGE SC SCH (09:22)
[2019-03-11] MEDS: Calcitriol 0.25 MCG CAP PO SCH (09:22)
[2019-03-11] MEDS: guaiFENesin ER 600 MG TAB PO SCH ×2 (09:22→20:43)
[2019-03-11] MEDS: Carvedilol 6.25 MG TAB PO SCH ×2 (09:22→20:40)
[2019-03-11] MEDS: Famotidine 20 MG TAB PO SCH (09:22)
[2019-03-11] MEDS: Amlodipine 10 MG TAB PO SCH (09:22)
[2019-03-11] MEDS: Aspirin Chewable 81 MG TAB PO SCH (09:22)
[2019-03-11] MEDS: Vancomycin HCl 1.25 GM in Sodium Chloride 0.9% 250 ML 250 ML IVPB SCH (12:39)
--- NOTE | 2019-03-11 14:15 | RAD ---
Chest AP view INDICATION: Chest pain COMPARISON: CT of the thorax dated 03/09/2019 FINDINGS: Lungs:Left basilar opacity and small bilateral pleural effusions persist. Cardiac silhouette:Cardiomegaly is stable Pulmonary vasculature:Mild to moderate pulmonary vascular congestion persists Pleural spaces:Small bilateral pleural effusions, left greater than right are stable Upper abdomen:No abnormality seen. Osseous structures: No acute osseous abnormality. Additional findings:Vascular calcifications of the aortic arch is stable IMPRESSION: Stable evaluation of the chest. Left basilar airspace opacity persists suspicious for pne umonia. Findings of mild CHF persists.
[2019-03-11] MEDS ORDERED: Furosemide 100 MG/10 ML VIAL SLOW IVP SCH (15:45)
--- NOTE | 2019-03-11 19:50 | PRG ---
DATE OF SERVICE: 03/11/2019 SUBJECTIVE: Ms. Najera seems to be resting comfortably in bed. There were reports from the respiratory therapist that she could not get her O2 saturations above 84% without putting her on more intensive O2. Ms. Najera states she is comfortable. She is complaining of some rash to her hands. She notes no chest pain, no shortness of breath. She had to have a Savage catheter placed yesterday due to 900 mL of urine by bladder scan. OBJECTIVE: VITAL SIGNS: Temperature 99.1, O2 saturations 88% on high-flow nasal cannula, pulse 65, BP 108/65. LUNGS: Bilateral breath sounds with air entry decreased at the bases. HEART: Reveals a regular rate and rhythm. No murmurs, gallops, or rubs. LABORATORY DATA: She is growing methicillin-resistant Staph aureus in two blood cultures as well as a Staph aureus in her urine as well as gram-negative ronaldo, nonhemolytic Strep. Sensitivities are still pending. IMPRESSION: 1. Sepsis. 2. History of chronic obstructive pulmonary disease. 3. History of congestive heart failure with cardiomyopathy. PLAN: 1. We will check chest x-ray today. 2. Give Lasix 40 mg IV now to minimize any fluid overload situation that maybe present. 3. Consult Pulmonology for further recommendations. 4. Consider switching to oral Zyvox by tomorrow. Job ID: [id number]
--- NOTE | 2019-03-11 20:38 | CON ---
DATE OF CONSULTATION: 03/11/2019 CONSULTING PHYSICIAN: Dr. Silvestre Hooks. REASON FOR CONSULTATION: Shortness of breath, possible pneumonia. HISTORY OF PRESENT ILLNESS: The patient is an 83-year-old female, who is a very poor historian. She was brought to the hospital yesterday with shortness of breath and fever. She does not remember whether or not she is having a cough, but history and physical indicates that she has been. She has also been complaining of weakness. She did have some fever last night. She was found to have a left lower lobe infiltrate on a CT scan done yesterday. Concurrently, she has a cardiomyopathy with EF of 15% to 20%. She was in the hospital about a month ago with pneumonia. PAST MEDICAL HISTORY: 1. Hyperlipidemia. 2. Gastroesophageal reflux. 3. Paroxysmal atrial fibrillation. 4. Osteoarthritis. 5. Pneumonia. 6. Chronic kidney disease. 7. Ischemic cardiomyopathy. 8. Congestive heart failure, systolic. 9. Chronic obstructive pulmonary disease. 10. Pressure ulcers. 11. Neuropathy. 12. Hypertension. 13. Anxiety. PAST SURGICAL HISTORY: 1. AICD placement. 2. Thoracentesis. 3. Left wrist surgery. FAMILY MEDICAL HISTORY: Unremarkable. SOCIAL HISTORY: Lives in a long-term. Apparently, there is a do not resuscitate order. ALLERGIES: CODEINE, HYDROCODONE, AND SULFA. MEDICATIONS: Listed in history and physical reviewed. REVIEW OF SYSTEMS: Unable to get the patient to focus enough to give me an accurate review of systems. PHYSICAL EXAMINATION: VITAL SIGNS: Temperature 99.1, pulse 65, respirations 20, O2 saturation is 92% on an ear probe on the right ear, blood pressure 108/56. GENERAL: She is lying in bed, in no distress. HEENT: Unremarkable. NECK: No adenopathy or JVD. LUNGS: She has few crackles in left lower lobe, right side is clear. CARDIAC: S1, S2 irregular with a 2/6 systolic murmur. ABDOMEN: Soft and nontender. EXTREMITIES: No clubbing, cyanosis, or edema. LABORATORY AND DIAGNOSTIC DATA: White blood cell count 14.4, hematocrit 26, platelet count 123. PH of 7.42, pCO2 of 39, pO2 of 56. Sodium 139, potassium 3.7, chloride 105, CO2 of 25, BUN 49, creatinine 3.2, and glucose 103. CT and chest x-ray were reviewed. ASSESSMENT: 1. Left lower lobe pneumonia. 2. Advanced age. 3. History of cardiomyopathy. PLAN: 1. Given the fever and infiltrate, I would go ahead and cover for pneumonia with vancomycin plus Levaquin should be adequate coverage. Concurrently, she probably has some degree of congestive heart failure and may require diuresis in the next 1 to 2 days. 2. Wean oxygen as tolerated. 3. I will follow with you. Job ID: [id number]
[2019-03-12] MEDS: Piperacillin/Tazobactam 2.25 GM in Sodium Chloride 0.9% 100 ML IVPB SCH ×4 (02:39→20:44)
[2019-03-12] MEDS: traMADol HCl 50 MG TAB PO PRN ×3 (05:23→20:45)
[2019-03-12 06:10] LABS: Anion Gap 12 mmol/L (10-20); BUN (Urea Nitrogen) 44 mg/dL (9.8-20.1); Calc. Creatinine Clearance 14 mL/min (70-130); Calcium 7.8 mg/dL (7.8-10.44); Carbon Dioxide 26 mmol/L (23-31); Chloride 102 mmol/L (98-107); Estimated GFR-MDRD 14; Glucose 107 mg/dL (83-110); Potassium 3.1 mmol/L (3.5-5.1); Sodium 137 mmol/L (136-145)
[2019-03-12 06:37] LABS: Band 1 % (5-11); Eosinophils 3 % (0-10); Hemoglobin 7.6 g/dL (12.0-16.0); Lymphocytes 4 % (21-51); MDiff Complete? YES; Mean Corpuscular HGB CONC 32.7 g/dL (32.0-36.0); Mean Corpuscular Volume 91.8 fL (78.0-98.0); Monocytes 8 % (0-10); Neutrophil 84 % (42-75); Platelet Count 121 thou/uL (130-400); Platelet Morphology Comment Appears Decreased; RBC Distribution Width 15.9 % (11.5-14.5); Red Blood Cell (RBC) Count 2.52 mill/uL (4.20-5.40); White Blood Cell (WBC) Count 10.6 thou/uL (4.8-10.8)
[2019-03-12] MEDS: Pregabalin 75 MG CAP PO SCH ×2 (08:47→20:45)
[2019-03-12] MEDS: Enoxaparin Sodium 30 MG/0.3 ML SYRINGE SC SCH (08:47)
[2019-03-12] MEDS: Carvedilol 6.25 MG TAB PO SCH ×2 (08:48→20:45)
[2019-03-12] MEDS: Isosorbide Dinitrate 20 MG TAB PO SCH (08:48)
[2019-03-12] MEDS: Aspirin Chewable 81 MG TAB PO SCH (08:48)
[2019-03-12] MEDS: Famotidine 20 MG TAB PO SCH (08:49)
[2019-03-12] MEDS: guaiFENesin ER 600 MG TAB PO SCH ×2 (08:49→20:45)
[2019-03-12] MEDS: Calcitriol 0.25 MCG CAP PO SCH (08:49)
[2019-03-12] MEDS: Amlodipine 10 MG TAB PO SCH (08:49)
--- NOTE | 2019-03-12 09:58 | PRG ---
DATE OF SERVICE: 03/12/2019 SUBJECTIVE: The patient is much more awake, alert, and talkative today. OBJECTIVE: VITAL SIGNS: Temperature is 98.1, pulse 64, respirations 18, O2 saturation 98% on high-flow nasal cannula, and blood pressure 178/76. HEENT: Unremarkable. NECK: No JVD. LUNGS: Fairly clear without wheezing. CARDIAC: S1 and S2, regular. ABDOMEN: Soft. EXTREMITIES: No edema. LABORATORY DATA: White blood cell count 10.6, hematocrit 23.2, platelet count 121. Sodium 137, potassium 3.1, chloride 102, CO2 of 26, BUN 44, creatinine 3.2, and glucose 107. Her echo from yesterday demonstrated EF of 40% to 45%, which is read higher than her previous report. ASSESSMENT: 1. Acute systolic heart failure. 2. Left lower lobe pneumonia. 3. Cardiomyopathy. PLAN: 1. Continue antibiotics. 2. Try to wean her to standard nasal cannula. Job ID: [id number]
[2019-03-12] MEDS: Vancomycin HCl 1.25 GM in Sodium Chloride 0.9% 250 ML 250 ML IVPB SCH (14:05)
--- NOTE | 2019-03-12 21:01 | PRG ---
DATE OF SERVICE: 03/12/2019 SUBJECTIVE: Ms. Najera is doing well. She is feeling better. She reports no significant shortness of breath, fever has not been noted. She feels overall better. OBJECTIVE: VITAL SIGNS: Pulse 64, respirations 18, O2 saturations 98% on high-flow nasal cannula, BP 178/76. LUNGS: Bilateral breath sounds. HEART: Reveals a regular rate and rhythm. No murmurs, gallops, or rubs. LABORATORY DATA: Her white count is 10.6, hemoglobin , hematocrit 23.2, creatinine is 3.2 somewhat raised from her baseline. Echocardiogram did show an ejection fraction of approximately 40%. IMPRESSION: 1. Left lower lobe pneumonia. 2. Congestive heart failure. 3. Staph sepsis. PLAN: The patient possibly could be discharged on oral antibiotics back to [facility] by tomorrow. We will try to arrange this with Case Management. Job ID: [id number]
[2019-03-13] MEDS: Piperacillin/Tazobactam 2.25 GM in Sodium Chloride 0.9% 100 ML IVPB SCH ×2 (03:40→10:09)
--- NOTE | 2019-03-13 09:45 | PRG ---
DATE OF SERVICE: 03/13/2019 SUBJECTIVE: The patient remains on high-flow oxygen, although the machine was actually off when I went to the room this morning. She feels better, and the plan is for to go back to the retirement. OBJECTIVE: VITAL SIGNS: Her O2 saturation listed is 95% on room air, blood pressure 160/74, temperature 97.8. HEENT: Unremarkable. NECK: No adenopathy or JVD. CHEST: Clear. CARDIAC: S1 and S2. Regular. ABDOMEN: Soft. EXTREMITIES: No edema. ASSESSMENT: Methicillin-resistant Staphylococcus aureus sepsis. PLAN: Okay to go home. Job ID: [id number]
[2019-03-13] MEDS: Pregabalin 75 MG CAP PO SCH (10:07)
[2019-03-13] MEDS: Isosorbide Dinitrate 20 MG TAB PO SCH (10:08)
[2019-03-13] MEDS: Calcitriol 0.25 MCG CAP PO SCH (10:08)
[2019-03-13] MEDS: Amlodipine 10 MG TAB PO SCH (10:08)
[2019-03-13] MEDS: Carvedilol 6.25 MG TAB PO SCH (10:09)
[2019-03-13] MEDS: Famotidine 20 MG TAB PO SCH (10:09)
[2019-03-13] MEDS: Aspirin Chewable 81 MG TAB PO SCH (10:09)
[2019-03-13] MEDS: guaiFENesin ER 600 MG TAB PO SCH (10:09)
[2019-03-13] MEDS: Enoxaparin Sodium 30 MG/0.3 ML SYRINGE SC SCH (10:10)
--- NOTE | 2019-03-13 13:24 | PRG ---
DATE OF SERVICE: 03/13/2019 SUBJECTIVE: Ms. Najera is resting in bed. She is eating breakfast. She has no medical complaints. OBJECTIVE: VITAL SIGNS: Temperature 97.8, blood pressure 172/74, and O2 saturation is 95% on 2 L high-flow. LUNGS: Reveal bilateral breath sounds, somewhat decreased on the left, but no wheezes or rhonchi. HEART: Reveals a regular rate and rhythm. No murmurs, gallops, or rubs. EXTREMITIES: No clubbing, edema, or cyanosis. IMPRESSION: 1. Sepsis, methicillin-resistant Staphylococcus aureus, direct etiology unknown. 2. Chronic obstructive pulmonary disease. 3. Pneumonia. 4. Atherosclerotic coronary artery disease/cardiomyopathy/congestive heart failure. 5. Renal insufficiency, stage IV. PLAN: The patient is medically stable. She can be transferred back to the [facility] today on Zyvox. She will need to be on this for 2 weeks. She will be maintained on all of her other home medications. Job ID: [id number]
[2019-03-13 13:44] VITALS: BP 156/87; TEMP 97.9
--- NOTE | 2019-03-14 13:23 | EKG ---
Test Reason : Blood Pressure : / mmHG Vent. Rate : 069 BPM Atrial Rate : 068 BPM P-R Int : 000 ms QRS Dur : 114 ms QT Int : 428 ms P-R-T Axes : 000 -11 -11 degrees QTc Int : 458 ms Atrial fibrillation Incomplete left bundle branch block Nonspecific ST abnormality , probably digitalis effect Abnormal ECG Confirmed by KULWANT TATE ([id number]), copy editor DOUG GEORGE ([id number]) on 03/14/2019 1:23:24 PM Referred By: Confirmed By:KULWANT TATE
== END 2019-03-13 13:17 | DRG 871 ==
LOC: ERS 04:06 → 2NO 06:09
PROVIDERS: ADMIT Family Medicine; ATTEND Family Medicine
DX: A41.02 Sepsis due to Methicillin resistant Staphylococcus aureus (principal); J96.21 Acute and chronic respiratory failure with hypoxia; I50.43 Acute on chronic combined systolic (congestive) and diastolic (congestive) heart failure; J18.1 Lobar pneumonia, unspecified organism; J44.0 Chronic obstructive pulmonary disease with (acute) lower respiratory infection; I13.0 Hypertensive heart and chronic kidney disease with heart failure and stage 1 through stage 4 chronic kidney disease, or unspecified chronic kidney disease; N18.4 Chronic kidney disease, stage 4 (severe); Z66 Do not resuscitate; K21.9 Gastro-esophageal reflux disease without esophagitis; G47.00 Insomnia, unspecified; F41.9 Anxiety disorder, unspecified; F32.9 Major depressive disorder, single episode, unspecified; I25.5 Ischemic cardiomyopathy; E78.5 Hyperlipidemia, unspecified; I48.0 Paroxysmal atrial fibrillation; I25.10 Atherosclerotic heart disease of native coronary artery without angina pectoris; M19.90 Unspecified osteoarthritis, unspecified site; Z95.810 Presence of automatic (implantable) cardiac defibrillator; Z86.14 Personal history of Methicillin resistant Staphylococcus aureus infection; Z88.5 Allergy status to narcotic agent; Z88.2 Allergy status to sulfonamides; Z88.8 Allergy status to other drugs, medicaments and biological substances; Z79.899 Other long term (current) drug therapy; Z99.81 Dependence on supplemental oxygen; Z79.82 Long term (current) use of aspirin
CPT/HCPCS: 36415; 71045; 71250; 80048; 80053; 80202; 81003; 81015; 82553; 82805; 83605; 83880; 84484; 85025; 87040; 87077; 87086; 87149; 87186; 87804; 93005; 93306; 93798; 94640; 96365; 96375; J1650; J1940; J1956; J2543; J3370; J3490; J7050; J7620

== ENCOUNTER 2019-03-13 16:31 | Inpatient (IN) | payer MEDICARE, OTHER ==
[2019-03-13 16:56] LABS: #Basophils 0.1 thou/uL (0.0-0.2); #Eosinphils 0.5 thou/uL (0.0-0.7); #Lymphocytes 0.5 thou/uL (1.20-3.40); #Monocytes 1.2 thou/uL (0.11-0.59); #Neutrophils 7.8 thou/uL (1.40-6.50); %Basophils 0.7 % (0.0-1.0); %Eosinophils 4.8 % (0.0-10.0); %Lymphocytes 4.9 % (21.0-51.0); %Monocytes 11.7 % (0.0-10.0); %Neutrophils 77.8 % (42.0-75.0); Mean Corpuscular HGB CONC 32.6 g/dL (32.0-36.0); Mean Corpuscular Hemoglobin 29.7 pg (27.0-31.0); Mean Corpuscular Volume 91.1 fL (78.0-98.0); Mean Platelet Volume 8.8 fL (7.4-10.4); Platelet Count 169 thou/uL (130-400); RBC Distribution Width 15.4 % (11.5-14.5); Red Blood Cell (RBC) Count 2.71 mill/uL (4.20-5.40)
[2019-03-13 17:13] LABS: Actual Bicarbonate (HCO3a) 25.1 mEq/L (22-28); Analyzer IN Cardio ER; Base Excess (BEa) 0.3 mEq/L (-2.0 to +3.0); CO2 Tension 41.5 mmHg (35.0-45.0); Calcium, Ionized 1.07 mmol/L (1.12-1.30); Carboxyhemoglobin (COHb) 0.4 gm% (0.0-3.0); Hemoglobin (Hb) 8.4 g/dL (12.0-16.0); Potassium - ABG Lab 3.68 mmol/L (3.70-5.30)
[2019-03-13 17:14] LABS: O2 Tension (PaO2) 46.7 mmHg (> 60.0); Puncture Site RRA
[2019-03-13 17:15] LABS: ALV-art Gradient 115.325 (0-20)
--- NOTE | 2019-03-13 17:24 | RAD ---
Portable frontal chest radiograph: 03/13/2019 COMPARISON: 03/11/2019 HISTORY: Shortness of breath FINDINGS: As noted on the recent prior examination there is dense opacity in the left base obscuring the left hemidiaphragm and the left heart border with blunting of the left costophrenic angle. This opacity has worsened with new pleural-parenchymal opacity within the mid left lung zone. In addition, aeration has worsened within the right lung base with new blunting of the right costophrenic angle and new obscuration of the right hemidiaphragm with probable small volume right pleural effusion. The re is atherosclerotic calcification of the thoracic aorta. IMPRESSION: Worsening pleural and parenchymal opacity suggesting pulmonary edema. Infectious pneumoni tis or aspiration cannot be excluded. Recommend follow-up imaging following treatment to document resolution.
[2019-03-13 17:31] LABS: ALT (SGPT) 25 U/L (8-55); AST (SGOT) 18 U/L (5-34); Albumin 3.6 g/dL (3.4-4.8); Alkaline Phosphatase 106 U/L (40-150); Anion Gap 15 mmol/L (10-20); BUN (Urea Nitrogen) 44 mg/dL (9.8-20.1); Bilirubin, Total 0.4 mg/dL (0.2-1.2); Calc. Creatinine Clearance 0 mL/min (70-130); Calcium 8.3 mg/dL (7.8-10.44); Carbon Dioxide 25 mmol/L (23-31); Chloride 102 mmol/L (98-107); Estimated GFR-MDRD 14; Globulin 2.8 g/dL (2.4-3.5); Glucose 124 mg/dL (83-110); Potassium 3.7 mmol/L (3.5-5.1); Protein, Total 6.4 g/dL (6.0-8.3); Sodium 138 mmol/L (136-145)
[2019-03-13] MEDS ORDERED: Furosemide 40 MG/4 ML VIAL ONE (19:54)
[2019-03-13] MEDS ORDERED: Acetaminophen 325 MG TAB PO PRN (20:41)
[2019-03-13] MEDS ORDERED: Ondansetron PF 4 MG/2 ML Vial IVP PRN (20:41)
[2019-03-13] MEDS ORDERED: Ondansetron ODT 4 MG TAB SL PRN (20:41)
[2019-03-13] MEDS ORDERED: Calcium Carbonate 500 MG ChewTAB PO PRN (22:51)
[2019-03-13] MEDS ORDERED: Benzonatate 100 MG CAP PO PRN (22:51)
[2019-03-13] MEDS ORDERED: Bisacodyl 5 MG TAB PO PRN (22:51)
[2019-03-13] MEDS ORDERED: Loratadine 10 MG TAB PO PRN (22:52)
[2019-03-13] MEDS ORDERED: Mag-Al Plus 1200 MG/1200 MG/120 MG/30 ML UDCUP PO PRN (22:59)
[2019-03-13] MEDS ORDERED: Milk Of Magnesia 30 ML UDCUP PO PRN (22:59)
[2019-03-13] MEDS ORDERED: [UNRECOGNIZED DRUG - OTHER] EA EYE PRN (23:01)
[2019-03-13] MEDS ORDERED: Ondansetron ODT 4 MG TAB PO PRN (23:02)
[2019-03-13] MEDS ORDERED: Nitroglycerin 0.4 MG TAB (25 Tab Bottle) SL PRN (23:02)
[2019-03-13] MEDS ORDERED: Preparation H Ointment 28 GM TUBE PR PRN (23:03)
[2019-03-13] MEDS: traMADol HCl 50 MG TAB PO PRN (23:23)
[2019-03-14 01:10] VITALS: BMI 23.5
[2019-03-14 02:41] LABS: Bacteria/HPF None Seen HPF (None Seen); Bilirubin Negative (Negative); Blood, Urine Negative (Negative); Clarity Clear (Clear); Glucose, Urine (Dipstick) Normal (Negative); Leukocyte Negative Leu/uL (Negative); Nitrite Negative (Negative); Protein, Urine (Dipstick) 50 mg/dL (Neg-Trace); RBC/HPF 0-3 HPF (0-3); Squamous Epithelial None Seen HPF (0-3); Urobilinogen Normal mg/dL (Less than 2); WBC/HPF 0-3 HPF (0-3)
[2019-03-14 03:54] LABS: Anion Gap 13 mmol/L (10-20); BUN (Urea Nitrogen) 44 mg/dL (9.8-20.1); Calc. Creatinine Clearance 15 mL/min (70-130); Calcium 8.1 mg/dL (7.8-10.44); Carbon Dioxide 26 mmol/L (23-31); Chloride 103 mmol/L (98-107); Estimated GFR-MDRD 14; Glucose 99 mg/dL (83-110); Potassium 3.1 mmol/L (3.5-5.1); Sodium 139 mmol/L (136-145)
[2019-03-14] MEDS: Furosemide 40 MG/4 ML VIAL SLOW IVP SCH ×2 (05:31→13:54)
[2019-03-14] MEDS ORDERED: Dextrose 5%-Lactated Ringers 1,000 ML IV SCH (10:30)
[2019-03-14] MEDS: Artificial Tear Sol 15 ML BOT EA EYE SCH ×3 (10:34→22:53)
[2019-03-14] MEDS: Potassium Chloride 20 MEQ TAB PO SCH ×2 (10:35→17:03)
[2019-03-14] MEDS: Multivitamin W/ Minerals 1 TAB PO SCH (10:35)
[2019-03-14] MEDS: Carvedilol 6.25 MG TAB PO SCH ×2 (10:35→22:53)
[2019-03-14] MEDS: guaiFENesin ER 600 MG TAB PO SCH ×2 (10:35→22:54)
[2019-03-14] MEDS: Calcitriol 0.25 MCG CAP PO SCH (10:35)
[2019-03-14] MEDS: cloNIDine 0.2 MG TAB PO SCH ×3 (10:36→22:54)
[2019-03-14] MEDS: Pregabalin 75 MG CAP PO SCH ×2 (10:36→22:54)
[2019-03-14] MEDS: Docusate 100 MG CAP PO SCH (10:36)
[2019-03-14] MEDS: levETIRAcetam 500 MG TAB PO SCH (10:36)
[2019-03-14] MEDS: Isosorbide Dinitrate 20 MG TAB PO SCH (10:36)
[2019-03-14] MEDS: Aspirin Chewable 81 MG TAB PO SCH (10:37)
[2019-03-14] MEDS: Polyethylene Glycol OPTH DROP 15 ML BOT EA EYE SCH ×3 (10:37→22:54)
[2019-03-14] MEDS: Amlodipine 5 MG TAB PO SCH ×2 (10:37→21:55)
[2019-03-14] MEDS ORDERED: Potassium Chloride 20 MEQ in Premix Bag 1 BAG IVPB SCH (11:00)
[2019-03-14] MEDS ORDERED: EPOETIN ALFA-EPBX (ESRD) 4,000 UNIT/ML VIAL SC SCH (11:00)
[2019-03-14] MEDS: hydrALAZINE 20 MG/ML VIAL SLOW IVP SCH (11:21)
--- NOTE | 2019-03-14 11:24 | CON ---
DATE OF CONSULTATION: SERVICE: Renal Medicine. HISTORY OF PRESENT ILLNESS: Ms. Najera is an 83-year-old white female with history of chronic renal failure and recently admitted for pneumonia. She was just discharged yesterday and was found to be hypoxemic, hence the readmission. Chest x-ray showed worsening findings. Issue of a superimposed acute pulmonary edema with this patient. Pneumonia could not be ruled out also. The patient has had received IV antibiotics during the last hospitalization. We are following this patient for evaluation of her acute kidney injury on top of her chronic renal failure. REVIEW OF SYSTEMS: No chest pain. Positive for shortness of breath. No syncopal episode. Denies any fever. Decreased energy level. Appetite decreased. No syncopal episode. No sore throat. No abdominal pain. No gross hematuria. No dysuria. No urinary frequency. No melena. No hematemesis. No headache. Occasional joint pains. No new skin rash. No tremors. No nausea. No vomiting. MEDICATIONS: Currently on; 1. Amlodipine 5 mg p.o. b.i.d. 2. Aspirin 81 mg tablet once a day. 3. Tessalon Perles q.6 as needed. 4. Clonidine 0.2 mg p.o. t.i.d. 5. D5 LR 75 mL/hour. 6. Furosemide 40 mg IV q.12. 7. DuoNeb q.4. 8. Imdur 30 mg daily. 9. Levetiracetam 250 mg p.o. b.i.d. 10. Zyvox 600 mg p.o. q.12. 11. Multivitamin daily. 12. Zofran 4 mg p.o. p.r.n. 13. Lyrica 150 mg p.o. b.i.d. 14. Status post vancomycin. PAST MEDICAL HISTORY: The patient has a history of CHF, recent diagnosis of pneumonia, history of subdural hematoma, paroxysmal AFib, hyperlipidemia, DJD, chronic renal failure, COPD, neuropathy, hypertension, history of anxiety, and ischemic cardiomyopathy. PAST SURGICAL HISTORY: Status post AICD placement, status post thoracentesis, and status post left wrist surgery. SOCIAL HISTORY: The patient is at the skilled nursing, 1 child, who lives in [place]. She is a DNR. Currently, no smoking. No alcohol intake. No IV drug abuse. Sedentary lifestyle. ALLERGIES: CODEINE, HYDROCODONE, AND SULFA. TRAUMA: Status post fall. IMMUNIZATIONS: Up-to-date. HOSPITALIZATIONS: Please see past medical history. FAMILY HISTORY: No family history of ESRD. PHYSICAL EXAMINATION: VITAL SIGNS: Blood pressure is noted at 188/98, heart rate 59, respiratory rate 18, and O2 saturation 94% on BiPAP. GENERAL: Awake, alert, comfortable, not in overt distress. The patient is on BiPAP. HEENT: She has a slightly pale conjunctivae. Anicteric sclerae. NECK: No neck mass. No carotid bruits. No JVD. CHEST: No deformities. LUNGS: Decreased breath sounds. No wheezing. HEART: Normal sinus rhythm. Grade 2/6 systolic murmur. No gallops. No rubs. ABDOMEN: Globular, soft, and nontender. No masses. EXTREMITIES: Trace edema. NEUROLOGICAL: Moving all extremities. No tremors. No asterixis. Oriented to 3 spheres. LABORATORY DATA: Laboratories of March 13, 2019; white count 10, hemoglobin is 8. On March 14, 2019; sodium 139, potassium 3.1, chloride 103, carbon dioxide 26, BUN 44, creatinine 3.08, glucose 99, and calcium 8.1. IMAGING DATA: Chest x-ray shows CHF ? of pneumonia. Cardiac echo done in February 2019 shows decreased EF of 45%. ASSESSMENT AND PLAN: 1. Shortness of breath, multifactorial etiology. Combination of pneumonia and congestive heart failure. Agree with IV Lasix 40 mg IV q.12. We will discontinue D5 LR with this patient. 2. Acute kidney injury on top of chronic renal failure. She has a superimposed prerenal azotemia on top of her chronic renal failure. Continue current management. Continue current diuretic regimen. There is no indication for any dialytic intervention with this patient. 3. Anemia. We will start this patient on weekly Epogen 7500 units subcu weekly. Consider iron supplementation. 4. Mild hypokalemia. P.r.n. KCl replacement. Job ID: [id number]
[2019-03-14] MEDS: Linezolid 600 MG TAB PO SCH ×2 (11:56→22:54)
[2019-03-14] MEDS: traMADol HCl 50 MG TAB PO PRN (11:58)
--- NOTE | 2019-03-14 12:47 | HP ---
PRIMARY CARE PHYSICIAN: Silvestre Hooks MD HISTORY OF PRESENT ILLNESS: This is an 83-year-old female, patient of Dr. Hooks, who had been discharged from the hospital the day prior to admission due to an MRSA pneumonia. She had been at the [facility] and during her evaluation at the [place], her oxygen saturations dropped into the 60s with minimal movement and transfers. This is why she had her oxygen on, so they transferred her up back to the hospital. On arriving in the ER, her O2 sats were 84% on CPAP and it was changed up to a BiPAP and sats were getting up into the upper 80s and lower 90s at that point. Her chest x-ray confirmed still left lower lobe pneumonia and some CHF exacerbation. PAST MEDICAL HISTORY: Otherwise is chronic anemia with a hemoglobin that has not been above 9 in several months. She has end-stage renal disease around stage 4, almost stage 5. She has chronic combined CHF with an ischemic cardiomyopathy with an EF of 15% to 20%. She has an AICD in place. She has a history of paroxysmal atrial fibrillation, COPD, GERD. She has a history of pressure ulcers and has a sacral wound now. She has a history of neuropathy, hypertension, peripheral artery disease, hyperlipidemia and then also some anxiety history. PAST SURGICAL HISTORY: She has AICD placement. She has had a thoracentesis. She had a left wrist injury repair. FAMILY HISTORY: Noncontributory. SOCIAL HISTORY: She is a DNR. Her daughter is currently out of state, but she does have a friend here with her. She is retired. She used to smoke long time ago. Has not smoked in many years. No alcohol intake. ALLERGIES: SHE HAS ALLERGIES TO CODEINE, HYDROCODONE, AND SULFA. HOME MEDICATIONS: Rather extensive, 1. Amlodipine 10 mg a day. 2. Clonidine 0.1 mg twice a day. 3. She is on 81 mg aspirin. 4. She is on calcitriol 0.25 mcg daily. 5. She is on carvedilol 12.5 mg twice a day. 6. She is on Lasix 20 mg a day. 7. She is on isosorbide 30 mg a day. 8. She is on Keppra 250 mg a day. 9. Lyrica 150 mg twice a day. 10. She also has Pepcid 20 mg a day. 11. She is on Colace 100 mg a day. 12. Tramadol 50 mg three times a day. Currently, the patient has the BiPAP on, but is able to talk and just loud volume to get through the mask. PHYSICAL EXAMINATION: VITAL SIGNS: Show she is afebrile. Temperature 98.5, pulse 56, O2 sats at 97% on BiPAP, and BP is 172/78. She has no IV fluids currently running and she has put out 700 mL of urine. HEENT: Essentially unremarkable. She has pupils that are equal, round, and reactive to light and accommodation. Extraocular movements are intact. Mucous membranes are slightly dry, I think it could be from the BiPAP. GENERAL: She is cooperative, awake, alert. NECK: Supple. No JVD. No bruits. No thyromegaly. LUNGS: Showing some bibasilar rales, but worse on the left. I heard no wet rhonchi. HEART: S1 and S2 with very distant, but a regular rhythm. No murmurs were appreciated this time. Bowel sounds are hypoactive. ABDOMEN: Soft, flat, nondistended. No palpable masses. NEUROLOGIC: She is awake and alert x4. She can move all extremities. She has no motor or sensory deficits noted. Cranial nerves 2 through 12 are equal and symmetrical. LABORATORY DATA: On the report, she had a chest x-ray done in the ER, which showed worsening pleural and parenchymal pneumonia and pulmonary edema primarily on the left side. On lab, her white count is 10, hemoglobin is 8, hematocrit is 24.7, platelet count is 169, neutrophils 78, lymphocytes at 5, monocytes 11.7. Her chemistries show sodium 139, potassium 3.1, chloride is 103, bicarb is 26, BUN is 14, creatinine is 3.08. Her GFR is at 14. Lactic acid is 0.8. Bilirubin is normal at 0.4. Troponin came back at 0.14, but her beta-natriuretic peptide came back at 1046. Her urine showed about some proteins, but no evidence of infection. ASSESSMENT: Methicillin-resistant Staphylococcus aureus from last hospitalization, methicillin-resistant Staphylococcus aureus pneumonia with chronic end-stage renal disease stage 4, possibly stage 5 with known ischemic cardiomyopathy with an EF of 15% to 20%, known chronic anemia of chronic disease, mild hypokalemia, severe hypoxia requiring BiPAP. She is in the ICU. Need to provide pressure support for blood pressures and she cannot take any of her oral medicines. Reconsulting Pulmonology and Nephrology at this point. Dr. Hooks will take over after the weekend. Job ID: [id number]
[2019-03-14] MEDS: Ferrous Sulfate 325 MG TAB PO SCH (17:03)
[2019-03-14 19:43] LABS: Vancomycin, Random 30.6 ug/mL (See Comment)
[2019-03-14] MEDS ORDERED: Vancomycin HCl 1 GM in Premix Bag 1 BAG IVPB SCH (20:00)
[2019-03-15 03:51] LABS: Band 1 % (5-11); Eosinophils 4 % (0-10); Hemoglobin 7.5 g/dL (12.0-16.0); Lymphocytes 8 % (21-51); MDiff Complete? YES; Mean Corpuscular HGB CONC 32.8 g/dL (32.0-36.0); Mean Corpuscular Hemoglobin 29.8 pg (27.0-31.0); Mean Corpuscular Volume 90.9 fL (78.0-98.0); Mean Platelet Volume 8.7 fL (7.4-10.4); Monocytes 17 % (0-10); Neutrophil 70 % (42-75); Platelet Count 200 thou/uL (130-400); Platelet Morphology Comment Appears Adequate; RBC Distribution Width 15.6 % (11.5-14.5); White Blood Cell (WBC) Count 9.4 thou/uL (4.8-10.8)
[2019-03-15 03:56] LABS: Anion Gap 16 mmol/L (10-20); BUN (Urea Nitrogen) 48 mg/dL (9.8-20.1); Calc. Creatinine Clearance 14 mL/min (70-130); Calcium 8.3 mg/dL (7.8-10.44); Carbon Dioxide 26 mmol/L (23-31); Chloride 100 mmol/L (98-107); Estimated GFR-MDRD 13; Glucose 106 mg/dL (83-110); Sodium 138 mmol/L (136-145)
[2019-03-15] MEDS: Furosemide 40 MG/4 ML VIAL SLOW IVP SCH ×2 (06:06→14:42)
[2019-03-15] MEDS ORDERED: Atropine Sulfate 1 mg/1 ml Vial IVP PRN (07:34)
--- NOTE | 2019-03-15 07:45 | RAD ---
EXAM: Portable chest PROVIDED CLINICAL HISTORY: Shortness of breath COMPARISON: 03/13/2019 FINDINGS: Mild improvement in pulmonary vascular congestion, right basilar airspace disease and left mid and lo wer lung zone pleural-parenchymal opacity. Additional significant interval change with respect to the prior examination is not apparent. IMPRESSION: As above.
[2019-03-15] MEDS: levETIRAcetam 500 MG TAB PO SCH (09:28)
[2019-03-15] MEDS: cloNIDine 0.2 MG TAB PO SCH ×3 (09:28→20:16)
[2019-03-15] MEDS: Calcitriol 0.25 MCG CAP PO SCH (09:28)
[2019-03-15] MEDS: Isosorbide Dinitrate 20 MG TAB PO SCH (09:28)
[2019-03-15] MEDS: Docusate 100 MG CAP PO SCH (09:28)
[2019-03-15] MEDS: Amlodipine 5 MG TAB PO SCH ×2 (09:28→20:16)
[2019-03-15] MEDS: Ferrous Sulfate 325 MG TAB PO SCH ×2 (09:28→17:26)
[2019-03-15] MEDS: Multivitamin W/ Minerals 1 TAB PO SCH (09:28)
[2019-03-15] MEDS: Aspirin Chewable 81 MG TAB PO SCH (09:29)
[2019-03-15] MEDS: Pregabalin 75 MG CAP PO SCH ×2 (09:29→22:50)
[2019-03-15] MEDS: Polyethylene Glycol OPTH DROP 15 ML BOT EA EYE SCH ×3 (09:29→19:44)
[2019-03-15] MEDS: Potassium Chloride 20 MEQ TAB PO SCH ×2 (09:29→17:26)
[2019-03-15] MEDS: guaiFENesin ER 600 MG TAB PO SCH ×2 (09:29→19:44)
[2019-03-15] MEDS: Artificial Tear Sol 15 ML BOT EA EYE SCH ×3 (09:29→19:44)
--- NOTE | 2019-03-15 11:10 | PRG ---
DATE OF SERVICE: 03/15/2019 SUBJECTIVE: Ms. Najera is an 83-year-old white female with known history of chronic renal failure, was admitted for congestive heart failure. She has been started on diuretics. There is slight improvement with her CHF. Chest x-ray also showed improvement of the CHF. No new complaints today. No chest pain. OBJECTIVE: VITAL SIGNS: Blood pressure is noted at 150/70 with a heart rate of 45, respiratory rate is 14, O2 saturation 95% on nasal BiPAP, and temperature 99.3. GENERAL: Awake, supine, and comfortable, not in distress. SKIN: Adequate turgor. HEENT: Slightly pale conjunctivae. Anicteric sclerae. NECK: No neck mass. No carotid bruits. No JVD. CHEST: No deformities. LUNGS: Decreased breath sounds. HEART: Normal sinus rhythm. No murmur. No gallops. No rubs. ABDOMEN: Globular. Soft and nontender. No masses. EXTREMITIES: Trace edema. No deformities. MEDICATIONS: Medications of March 15, 2019, were reviewed. LABORATORY DATA: Laboratories of March 15, 2019; white count 9.4 and hemoglobin 7.5. Sodium 138, potassium 4.0, chloride 100, carbon dioxide 26, BUN 48, creatinine 3.28, glucose 106, and calcium is 3.28. BNP 698. ASSESSMENT AND PLAN: 1. Acute kidney injury on top of her chronic renal failure, slightly higher creatinine. This could be a reflection of the current diuretic regimen. My plan is simply to continue to observe her. GFR has dropped down from 14 to 13 mL/minute. Continue current diuretic regimen. Consider decreasing this by a.m. No other changes to be made. No indication for any dialytic intervention. 2. Congestive heart failure, clinically improving, on IV diuretics. 3. Anemia, continuing weekly Epogen and iron supplementation. Overall, agree with current management. Job ID: [id number]
[2019-03-15] MEDS: hydrALAZINE 20 MG/ML VIAL SLOW IVP SCH (11:17)
--- NOTE | 2019-03-15 11:37 | PRG ---
DATE OF SERVICE: 03/15/2019 SUBJECTIVE: Miriam Najera remains in the ICU, short of breath. X-ray shows a left-sided pleural effusion, stable. She is on high-flow oxygen. Weak. OBJECTIVE: VITAL SIGNS: Saturations , pulse 80, respiratory rate 18, and blood pressure . CHEST: Bilateral rhonchi. CARDIAC: Normal S1 and S2. No gallops. ABDOMEN: Soft. LABORATORY DATA: White count is 9000, H and H 7 and 21. BUN and creatinine of 40 and 2.3. IMPRESSION: Left pleural effusion, renal failure, congestive heart failure, anemia, and severe deconditioning. PLAN: Continue neb treatment, Zyvox, vancomycin, and steroids. We will follow up. Job ID: [id number]
[2019-03-15] MEDS: traMADol HCl 50 MG TAB PO PRN (11:43)
--- NOTE | 2019-03-15 12:22 | CON ---
DATE OF CONSULTATION: HISTORY OF PRESENT ILLNESS: She is a DNR, came from the [place] with progressive increasing respiratory distress. She sees Dr. Eldridge and apparently has a left lower lobe pneumonia and pleural effusion, which is slightly worse. Estimated EF is about 15% to 20%. She is hypoxic in the 60s when she arrived and on BiPAP, her saturations are 90%. 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 She does have vague left-sided discomfort with no coughing. PAST MEDICAL HISTORY: Atrial fibrillation, CHF, renal failure, cardiomyopathy, COPD, neuropathy, hypertension, and anxiety. PAST SURGICAL HISTORY: Previous surgeries include AICD, left wrist surgery, and previous thoracentesis apparently. HOME MEDICATIONS: Include; 1. Tramadol. 2. Guaifenesin. 3. Lyrica. 4. Nitroglycerin. 5. Vitamins. 6. Levitra. 7. Lasix 20. 8. Amlodipine. 9. Coreg 12.5. 10. She is on Zyvox by mouth. 11. Vancomycin. 12. Neb treatments. REVIEW OF SYSTEMS: Otherwise, 10-point negative. PHYSICAL EXAMINATION: GENERAL: On examination, frail lady, in mild distress. VITAL SIGNS: Saturations are 93%, pulse 88, blood pressure . CHEST: Decreased breath sounds in left lung. CARDIAC: Normal S1 and S2. No gallops. ABDOMEN: No masses. LABORATORY DATA: Shows white count 10,000, H and H of 8 and 24, and platelet count normal. PO2 of 46, pCO2 of 40% on a BiPAP. Creatinine 3.2. BNP . ASSESSMENT: 1. Left pleural effusion, Staphylococcus sepsis, on Zyvox, which should be more than adequate. 2. Renal failure. 3. Chronic obstructive pulmonary disease. 4. Cardiomyopathy. It is unclear at this stage whether it is worth tapping the left chest. PLAN: I will continue antibiotics and readdress the situation in the next 24 to 48 hours. She is a DNR. Consultation note, 70 minutes, 50% in direct patient care. Job ID: [id number]
[2019-03-15] MEDS: Linezolid 600 MG TAB PO SCH ×2 (12:49→19:44)
--- NOTE | 2019-03-15 14:31 | PRG ---
DATE OF SERVICE: 03/15/2019 SUBJECTIVE: The patient is more obtunded today secondary to pain medicine. Overnight, the patient had more bradycardia. No longer on beta blockers, bradycardia down to 40s, but is hungry. The patient stated that she did not want to have any further pacemaker-type activity. She refused an external pacer. She is considering palliative care and a consult was placed yesterday for palliative care. The patient has not voided even with all the Lasix and she has abdominal discomfort, checking her bladder this morning that is full so we are going to put an indwelling Savage, intubate the urethra and will keep the Savage in place. Lungs are showing bibasilar rales consistent with yesterday. Heart is S1 and S2 with no rubs, murmurs, or gallops, but bradycardic 40s to 50s. She is more sleepy and obtunded today from pain medicine. She is complaining of pain in her hands and feet from her neuropathy that she has. LABORATORY DATA: Laboratory shows a white blood cell count is normal, still of 9.4. Her hemoglobin has dropped from 8 to 7.5, RDW is at 15.6, neutrophils is 70%, monocytes 17%. Her creatinine has worsened back up to 3.28 with a BUN of 48. GFR still about 13. Beta natriuretic peptide has dropped from 1046 to 698. There is improvement there. She had a random vancomycin level yesterday of 30, it is being monitored and also managed by Pharmacy. ASSESSMENT: Methicillin-resistant staphylococcus aureus pneumonia with bradycardia and multi-area system, deterioration of her stage 4-5 renal disease. Nephrology has been consulted. She has seen Dr. Colon in the past, but she is now contemplating a palliative care versus hospice consult. Dr. Hooks will see her tomorrow. Job ID: [id number]
[2019-03-15 19:44] LABS: Vancomycin, Random 22.9 ug/mL (See Comment)
[2019-03-15] MEDS: Vancomycin HCl 1 GM in Premix Bag 1 BAG IVPB SCH ×2 (21:47→22:50)
[2019-03-16] MEDS: cloNIDine 0.2 MG TAB PO SCH ×4 (05:35→20:05)
[2019-03-16] MEDS: Furosemide 40 MG/4 ML VIAL SLOW IVP SCH ×2 (05:36→14:45)
[2019-03-16] MEDS ORDERED: Vancomycin HCl 1 GM in Premix Bag 1 BAG IVPB SCH (06:00)
[2019-03-16 06:27] LABS: Anion Gap 13 mmol/L (10-20); BUN (Urea Nitrogen) 46 mg/dL (9.8-20.1); Calc. Creatinine Clearance 14 mL/min (70-130); Calcium 8.6 mg/dL (7.8-10.44); Carbon Dioxide 29 mmol/L (23-31); Chloride 99 mmol/L (98-107); Estimated GFR-MDRD 13; Glucose 116 mg/dL (83-110); Potassium 3.9 mmol/L (3.5-5.1); Sodium 137 mmol/L (136-145)
[2019-03-16 06:31] LABS: Band 1 % (5-11); Eosinophils 5 % (0-10); Hemoglobin 7.7 g/dL (12.0-16.0); Hypochromia SLIGHT = 6-15 cells (100X) (0-5/hpf); Lymphocytes 2 % (21-51); MDiff Complete? YES; Mean Corpuscular HGB CONC 32.5 g/dL (32.0-36.0); Mean Corpuscular Hemoglobin 29.7 pg (27.0-31.0); Mean Corpuscular Volume 91.3 fL (78.0-98.0); Mean Platelet Volume 8.1 fL (7.4-10.4); Monocytes 12 % (0-10); Neutrophil 80 % (42-75); Platelet Count 227 thou/uL (130-400); Platelet Morphology Comment Appears Adequate; RBC Distribution Width 15.7 % (11.5-14.5); Red Blood Cell (RBC) Count 2.59 mill/uL (4.20-5.40); White Blood Cell (WBC) Count 9.3 thou/uL (4.8-10.8)
[2019-03-16] MEDS: Calcitriol 0.25 MCG CAP PO SCH (09:25)
[2019-03-16] MEDS: Multivitamin W/ Minerals 1 TAB PO SCH (09:25)
[2019-03-16] MEDS: Isosorbide Dinitrate 20 MG TAB PO SCH (09:26)
[2019-03-16] MEDS: Aspirin Chewable 81 MG TAB PO SCH (09:27)
[2019-03-16] MEDS: levETIRAcetam 500 MG TAB PO SCH (09:27)
[2019-03-16] MEDS: guaiFENesin ER 600 MG TAB PO SCH ×2 (09:27→20:03)
[2019-03-16] MEDS: Potassium Chloride 20 MEQ TAB PO SCH ×2 (09:28→16:35)
[2019-03-16] MEDS: Pregabalin 75 MG CAP PO SCH ×2 (09:28→20:02)
[2019-03-16] MEDS: Ferrous Sulfate 325 MG TAB PO SCH ×2 (09:28→16:35)
[2019-03-16] MEDS: Linezolid 600 MG TAB PO SCH ×2 (09:29→20:02)
--- NOTE | 2019-03-16 09:30 | PRG ---
DATE OF SERVICE: 03/16/2019 SERVICE: Renal Medicine. SUBJECTIVE: Ms. Najera is an 83-year-old white female with known history of acute kidney injury on top of her chronic renal failure. Currently, diuresing due to the CHF. Her breathing is much improved. However, she complains of being tired. Denies any worsening shortness of breath or chest pain. OBJECTIVE: VITAL SIGNS: Blood pressure 171/72 with heart rate of 41, respiratory rate 20, temperature is 98.2, and pulse ox 96%. GENERAL: Noted to be awake, supine, lethargic, but not in distress. SKIN: Adequate turgor. HEENT: She has pinkish conjunctivae. Anicteric sclerae. No neck mass. No carotid bruits. No JVD. CHEST: No deformities. LUNGS: Decreased breath sounds. HEART: Normal sinus rhythm. No murmur. No gallops. No rubs. ABDOMEN: Globular, soft, and nontender. No masses. EXTREMITIES: No edema. No deformities. MEDICATIONS: Medications of March 16, 2019, was reviewed. LABORATORY DATA: Laboratories of March 16, 2019; white count 9.2, hemoglobin 7.7. Sodium 137, potassium 3.9, chloride 99, carbon dioxide 29, BUN 46, creatinine 3.3, and calcium 8.6. BNP is 698. ASSESSMENT AND PLAN: 1. Congestive heart failure, clinically improving. For the moment due to the slightly worsening renal dysfunction, we will decrease the Lasix to 40 mg IV daily. 2. Bradycardia, decrease clonidine. 3. Labile hypertension. Add nifedipine if the patient is still not on this medication. 4. Anemia. The patient is currently on Epogen 7500 units subcu daily. No indication for an emergent dialysis. Recheck basic metabolic panel and CBC in a.m. Job ID: [id number]
[2019-03-16] MEDS: Docusate 100 MG CAP PO SCH (09:31)
[2019-03-16] MEDS: Artificial Tear Sol 15 ML BOT EA EYE SCH ×3 (09:34→22:20)
[2019-03-16] MEDS: Amlodipine 5 MG TAB PO SCH ×2 (09:34→20:06)
[2019-03-16] MEDS: Polyethylene Glycol OPTH DROP 15 ML BOT EA EYE SCH ×3 (10:03→22:20)
--- NOTE | 2019-03-16 10:21 | PRG ---
DATE OF SERVICE: 03/16/2019 SUBJECTIVE: The patient is having difficulty with continued shortness of breath. She did not make it at the [facility] more than a few minutes before being brought back to the hospital earlier today. OBJECTIVE: VITAL SIGNS: Her pulse rate is in the 40s, blood pressure 170/65, sat 98%, temperature 98.2. HEENT: Unremarkable. NECK: No JVD. LUNGS: Diminished breath sounds at the bases. CARDIAC: S1, S2. Regular to bradycardic. ABDOMEN: Soft. EXTREMITIES: No edema. LABORATORY DATA: BNP was 698. Sodium 137, potassium 3.9, chloride 99, CO2 of 29, BUN 46, creatinine 3.3, and glucose 116. White blood cell count 9.3, hematocrit 23.6, and platelet count 227. ASSESSMENT: 1. Chronic hypoxic respiratory failure. 2. Chronic renal insufficiency. 3. Ischemic cardiomyopathy with ejection fraction 40% to 45%. PLAN: 1. I am going to get a Doppler study of lower extremities and D-dimer to see if this points more toward pulmonary embolism/DVT. Unfortunately, D-dimer will not be a great test in this scenario, but the patient cannot undergo a CT pulmonary angiogram due to her creatinine being elevated. I would like to save her the pain of getting a ventilation-perfusion scan given her severe debilitated state. 2. Agree with continued diuresis. 3. I think we are approaching a point where palliative care maybe the best measure as I do not see this patient achieving functional recovery. Job ID: [id number]
--- NOTE | 2019-03-16 10:36 | PRG ---
DATE OF SERVICE: 03/16/2019 SUBJECTIVE: Ms. Najera is stable. She is awake and alert. OBJECTIVE: VITAL SIGNS: Her temperature is 98.2; O2 saturation is 96% on high-flow oxygen; blood pressure 141/72; pulse, variable pulse rate of anywhere between 54 and 41. LUNGS: Clear. HEART: Reveals an irregular rhythm without murmur, gallops, or rubs. EXTREMITIES: No clubbing, edema, or cyanosis. LABORATORY DATA: Hemoglobin is 7.7, hematocrit 23.6. Sodium 137, potassium 3.9, chloride 99, CO2 of 29, BUN 46, and creatinine 3.3. IMPRESSION: 1. Recent history of sepsis. 2. Hypoxia. 3. Left pleural effusion. 4. Congestive heart failure. 5. Chronic renal insufficiency. PLAN: The patient issues. I doubt if we can really remedy the situation to improve her much more than what she is. May have to consider hospice care. This has been discussed briefly with the patient or discussed with the daughter more fairly. Job ID: [id number]
[2019-03-16] MEDS: traMADol HCl 50 MG TAB PO PRN (11:27)
--- NOTE | 2019-03-16 11:29 | ULT ---
EXAM: Bilateral lower extremity venous ultrasound HISTORY: Chronic hypoxia COMPARISON: None TECHNIQUE: Multiplanar grayscale and color Doppler images were obtained in a bilateral lower extremit y venous ultrasound. Spectral analysis of the Doppler waveforms were performed. FINDINGS: The bilateral common femoral vein, profunda femoral veins, superficial femoral veins, and p opliteal veins are normal in appearance without visible thrombus. These vessels demonstrate normal compression, flow, and augmentation. The bilateral posterior tibial veins and greater saphenous veins are patent without evidence of throm bus. IMPRESSION: No evidence of DVT.
[2019-03-16] MEDS: hydrALAZINE 25 MG TAB PO SCH ×2 (14:46→20:04)
[2019-03-17 04:19] LABS: #Basophils 0.1 thou/uL (0.0-0.2); #Eosinphils 0.8 thou/uL (0.0-0.7); #Lymphocytes 0.9 thou/uL (1.20-3.40); #Monocytes 1.5 thou/uL (0.11-0.59); #Neutrophils 8.1 thou/uL (1.40-6.50); %Basophils 0.8 % (0.0-1.0); %Eosinophils 6.8 % (0.0-10.0); %Monocytes 13.1 % (0.0-10.0); %Neutrophils 71.3 % (42.0-75.0); Mean Corpuscular Hemoglobin 29.9 pg (27.0-31.0); Mean Corpuscular Volume 90.5 fL (78.0-98.0); Mean Platelet Volume 8.2 fL (7.4-10.4); Platelet Count 272 thou/uL (130-400); RBC Distribution Width 15.8 % (11.5-14.5); Red Blood Cell (RBC) Count 2.67 mill/uL (4.20-5.40); White Blood Cell (WBC) Count 11.4 thou/uL (4.8-10.8)
[2019-03-17 04:39] LABS: Anion Gap 13 mmol/L (10-20); BUN (Urea Nitrogen) 53 mg/dL (9.8-20.1); Calc. Creatinine Clearance 14 mL/min (70-130); Calcium 8.7 mg/dL (7.8-10.44); Carbon Dioxide 30 mmol/L (23-31); Chloride 97 mmol/L (98-107); Estimated GFR-MDRD 14; Glucose 102 mg/dL (83-110); Potassium 4.1 mmol/L (3.5-5.1); Sodium 136 mmol/L (136-145)
[2019-03-17] MEDS: Furosemide 40 MG/4 ML VIAL SLOW IVP SCH ×2 (06:32→15:58)
[2019-03-17] MEDS: Linezolid 600 MG TAB PO SCH ×2 (09:28→19:33)
[2019-03-17] MEDS: Calcitriol 0.25 MCG CAP PO SCH (09:31)
[2019-03-17] MEDS: Potassium Chloride 20 MEQ TAB PO SCH ×2 (09:34→16:59)
[2019-03-17] MEDS: Multivitamin W/ Minerals 1 TAB PO SCH (09:35)
[2019-03-17] MEDS: Ferrous Sulfate 325 MG TAB PO SCH ×2 (09:36→16:59)
[2019-03-17] MEDS: Aspirin Chewable 81 MG TAB PO SCH (09:37)
[2019-03-17] MEDS: levETIRAcetam 500 MG TAB PO SCH (09:37)
[2019-03-17] MEDS: guaiFENesin ER 600 MG TAB PO SCH ×2 (09:37→19:55)
[2019-03-17] MEDS: cloNIDine 0.1 MG TAB PO SCH ×2 (09:37→19:53)
[2019-03-17] MEDS: Isosorbide Dinitrate 20 MG TAB PO SCH (09:38)
[2019-03-17] MEDS: Docusate 100 MG CAP PO SCH (09:40)
[2019-03-17] MEDS: Artificial Tear Sol 15 ML BOT EA EYE SCH ×3 (09:40→21:02)
[2019-03-17] MEDS: hydrALAZINE 25 MG TAB PO SCH ×3 (09:40→19:54)
[2019-03-17] MEDS: Amlodipine 5 MG TAB PO SCH ×2 (09:40→19:56)
[2019-03-17] MEDS: Polyethylene Glycol OPTH DROP 15 ML BOT EA EYE SCH ×3 (09:41→21:02)
[2019-03-17] MEDS: traMADol HCl 50 MG TAB PO PRN ×2 (09:54→21:00)
--- NOTE | 2019-03-17 09:57 | PRG ---
DATE OF SERVICE: 03/17/2019 SUBJECTIVE: Ms. Najera is an 83-year-old white female with chronic renal failure and was admitted for shortness of breath. A suspicion was that she may have persistent pneumonia and/or CHF. She is currently receiving diuretics and antibiotics. In addition, Pulmonary has been following this patient. She had a bilateral Doppler of both legs, which showed no DVT. The patient is still feeling tired. OBJECTIVE: VITAL SIGNS: Blood pressure is 142/65, heart rate is 37, respiratory rate 13, and pulse ox 100%. GENERAL: The patient is noted to be awake, alert, lethargic, not in distress. SKIN: Adequate turgor. HEENT: Slightly pale conjunctivae. Anicteric sclerae. NECK: No neck mass. No carotid bruits. No JVD. CHEST: No deformities. LUNGS: Decreased breath sounds. HEART: Bradycardic. ABDOMEN: Globular, soft, nontender. No masses. EXTREMITIES: Trace edema. MEDICATIONS: Medications of 03/17/2019 were reviewed. LABORATORY DATA: On 03/17/2019: White count 11.4 and hemoglobin 8. Sodium 136, potassium 4.1, chloride 97, carbon dioxide 30, BUN 53, creatinine 3.27, glucose 102, and calcium 8.7. ASSESSMENT AND PLAN: 1. Bradycardia, we are continuing to taper clonidine. Decrease clonidine to 0.1 mg b.i.d. from t.i.d. 2. Acute kidney injury/chronic renal failure, stabilizing renal function. Creatinine is stable at 3.27 with a GFR of 14 mL/minute. No indication for any dialytic intervention. 3. Anemia, continuing weekly Epogen. 4. Shortness of breath, stable. Possibility of underlying congestive heart failure and/or pneumonia. Continue supportive care. 5. Recheck CBC and basic metabolic in a.m. Job ID: [id number]
--- NOTE | 2019-03-17 10:16 | PRG ---
DATE OF SERVICE: 03/17/2019 SUBJECTIVE: The patient is calm. She says she is ready to pass away. OBJECTIVE: VITAL SIGNS: Temperature 98.7, pulse in the 30s to 40s, and O2 saturation 100% on high-flow nasal cannula. HEENT: Unremarkable. NECK: No JVD. LUNGS: Surprisingly clear. CARDIAC: S1 and S2, bradycardic. ABDOMEN: Soft. LABORATORY DATA: Sodium 136, potassium 4.1, BUN 53, creatinine 3.2, glucose 102. BNP was 698 a couple of days ago. White blood cell count 11.4, hematocrit 24.1, and platelet count 272. D-dimer was 3.9. Doppler of lower extremities was negative. ASSESSMENT AND PLAN: Hypoxic respiratory failure with symptoms out of proportion to exam. This would bring up the possibility of a pulmonary embolism. High D-dimer would be suggestive of some type of acute process. Unfortunately, the Doppler of lower extremities did not show anything, and her creatinine is too high to do a CT pulmonary angiogram. I discussed the prospect doing ventilation-perfusion scan with her, but she was not interested in pursuing that. Given that this is a treatable entity, I am going to go ahead and start her on low-dose Eliquis, realizing that the dose will need to be this low due to her renal function. It may not make any difference in the end. I do agree with pursuing palliative measures. Job ID: [id number]
[2019-03-17] MEDS: Apixaban 2.5 MG TAB PO SCH ×2 (10:33→19:55)
--- NOTE | 2019-03-17 10:36 | PQF ---
DATE: 03-17-19 ATTN: DR. RANDELL TREVINO Please exercise your independent, professional judgment in responding to the clarification form. Clinical indicators are provided on the bottom of this form for your review Please check appropriate box(s) to clarify if the following diagnosis has been ruled in or ruled out: SEPSIS [ x] Ruled in diagnosis [ ] Continue to treat [ ] Resolved [ ] Ruled out diagnosis [ ] Other diagnosis [ ] Unable to determine In addition, please specify: Present on Admission (POA): [ x ] Yes [ ] No [ ] Unable to determine For continuity of documentation, please document condition throughout progress notes and discharge summary. Thank You. CLINICAL INDICATORS - SIGNS / SYMPTOMS / LABS ER DX 03-13-19: RESPIRATORY FAILURE, MRSA BACTEREMIA CONSULTATION NOTE DR. TAYLOR 03-15-19: LEFT PLEURAL EFFUSION, STAPHYLOCOCCUS SEPSIS, ON ZYVOX, WHICH SHOULD BE MORE THAN ADEQUATE. WBC: 03-17-19: 11.4 RISK FACTORS: ER DX 03-13-19: RESPIRATORY FAILURE, MRSA BACTEREMIA ER NOTE 03-13-19: WAS ADMITTED TO HOSPITAL 4 DAYS AGO DUE TO FEVER, SEPSIS , MRSA, D/C FROM HOSPITAL 3 DAYS OFFICE CORRESPONDENT TREATMENTS: ER NOTE VANCOMYCIN IV (This form is maintained as a part of the permanent medical record) 2014 [employer]. All Rights Reserved AKASH [email or web address] Office: [phone] [email or web address]
[2019-03-17] MEDS: Pregabalin 75 MG CAP PO SCH ×2 (11:00→19:32)
--- NOTE | 2019-03-17 11:11 | PQF ---
DATE: 03-17-19 ATTN: DR. RANDELL TREVINO Please exercise your independent, professional judgment in responding to the clarification form. Clinical indicators are provided on the bottom of this form for your review Please check appropriate box(s): [ ] Acute Respiratory Failure: [ ] with Hypoxia[ ] with Hypercapnia [ x] Acute On Chronic Respiratory Failure: [x ] with Hypoxia [ ] with Hypercapnia [ ] Acute Respiratory Failure due to: (etiology) [ ] Other diagnosis [ ] Unable to determine In addition, please specify: Present on Admission (POA): [ x] Yes [ ] No [ ] Unable to determine For continuity of documentation, please document condition throughout progress notes and discharge summary. Thank You. CLINICAL INDICATORS - SIGNS / SYMPTOMS / LABS ER NOTES 03-13-19: DIFFICULTY BREATHING, SOB, SATS AT 84 ON CPAP IN ED. ER DX 03-13-19: RESPIRATORY FAILURE, MRSA BACTEREMIA H&P 03-13-19: HE OXYGEN SATS DROPPED INTO THE 60'S WITH MINIMAL MOVEMENT AND TRANSFERS, ON ARRIVAL IN THE ER, HER O2 SATS WERE 84% ON CPAP AND IT WAS CHANGED UP TO A BIPAP AND SATS WERE GETTING UP INTO THE UPPER 80'S AND LOWER 90'S, SEVERE HYPOXIA REQUIRING BIPAP RT OXYGEN PULSE OX 03-13-19: BIPAP 50%- HIGH FLOW 35 L/MIN RISK FACTORS: ER NOTES 03-13-19: SOB, WAS ADMITTED TO HOSPITAL 4 DAYS AGO DUE TO FEVER, SEPSIS, MRSA, D/C FROM HOSP 3 DAYS [facility]OSP[facility] [employer], D/C WITH [facility] PNA AND CHF SATS 60 ON ARRIVAL, SAT AT 84 ON CPAP IN ED, CHF, INSOMNIA TREATMENTS: ER NOTES 03-13-19: LASIX IV MAR 03-14-19: DUONEBS RT OXYGEN PULSE OX 03-13-19: BIPAP 50%- HIGH FLOW 35 L/MIN (This form is maintained as a part of the permanent medical record) 2014 [employer]. All Rights Reserved [email or web address] Office: [phone] [facility]
--- NOTE | 2019-03-17 12:10 | CON ---
DATE OF CONSULTATION: SUBJECTIVE: Ms. Najera is resting quietly. She was aroused from bed from sleep. OBJECTIVE: VITAL SIGNS: Pulse 45, O2 saturations 99% on high-flow, and blood pressure 142/65. GENERAL: She is alert, active, does not appear in any distress. LUNGS: Reveal bilateral breath sounds. HEART: Reveals a bradycardic rhythm without murmur, gallops, or rubs. LABORATORY DATA: Hemoglobin 8.0, hematocrit 24.1. Creatinine is 3.27. IMPRESSION: Multi-system problems including congestive heart failure with decreased ejection fraction, chronic obstructive pulmonary disease with respiratory insufficiency, chronic renal insufficiency. PLAN: At this point, I really do not have much else to offer the patient except high-flow oxygen, although she has had a previous history of sepsis that appears to be under good control. She really cannot tolerate outpatient settings with low-flow oxygen. At this point after speaking with all the specialists involved, we think the patient will need to consider hospice. I have had a long talk with the patient. She is willing to consider hospice care. We will consult hospice to see what type of care arrangements could be made, whether hospice care could be provided at [facility] or whether inpatient hospice could be arranged or whether the patient could possibly go back to her old home and have hospice care delivered there. I have spoken with her daughter, Rema, in [place]. The patient wishes to take and speak with hospice. We will meet again this afternoon to see if she wishes to enroll. I think at this point the patient is willing to enroll in hospice care. We will, at this time, continue her current management. Job ID: [id number]
[2019-03-18] MEDS: Acetaminophen 500 MG TAB PO PRN (03:42)
[2019-03-18 05:07] LABS: #Basophils 0.1 thou/uL (0.0-0.2); #Eosinphils 0.8 thou/uL (0.0-0.7); #Lymphocytes 0.8 thou/uL (1.20-3.40); #Monocytes 1.3 thou/uL (0.11-0.59); #Neutrophils 7.3 thou/uL (1.40-6.50); %Basophils 0.6 % (0.0-1.0); %Eosinophils 7.9 % (0.0-10.0); %Lymphocytes 7.8 % (21.0-51.0); %Monocytes 12.9 % (0.0-10.0); %Neutrophils 70.8 % (42.0-75.0); Hemoglobin 7.9 g/dL (12.0-16.0); Mean Corpuscular HGB CONC 33.5 g/dL (32.0-36.0); Mean Corpuscular Hemoglobin 30.2 pg (27.0-31.0); Mean Corpuscular Volume 90.2 fL (78.0-98.0); Mean Platelet Volume 7.6 fL (7.4-10.4); Platelet Count 310 thou/uL (130-400); RBC Distribution Width 15.7 % (11.5-14.5); Red Blood Cell (RBC) Count 2.62 mill/uL (4.20-5.40); White Blood Cell (WBC) Count 10.3 thou/uL (4.8-10.8)
[2019-03-18 05:29] LABS: Anion Gap 17 mmol/L (10-20); BUN (Urea Nitrogen) 56 mg/dL (9.8-20.1); Calc. Creatinine Clearance 14 mL/min (70-130); Calcium 8.4 mg/dL (7.8-10.44); Carbon Dioxide 25 mmol/L (23-31); Chloride 98 mmol/L (98-107); Estimated GFR-MDRD 13; Glucose 105 mg/dL (83-110); Potassium 4.3 mmol/L (3.5-5.1); Sodium 136 mmol/L (136-145)
[2019-03-18] MEDS: Furosemide 40 MG/4 ML VIAL SLOW IVP SCH ×2 (05:50→08:43)
[2019-03-18] MEDS: hydrALAZINE 25 MG TAB PO SCH ×3 (08:43→20:07)
[2019-03-18] MEDS: Potassium Chloride 20 MEQ TAB PO SCH ×2 (08:43→17:31)
[2019-03-18] MEDS: Calcitriol 0.25 MCG CAP PO SCH (08:43)
[2019-03-18] MEDS: Docusate 100 MG CAP PO SCH (08:44)
[2019-03-18] MEDS: Pregabalin 75 MG CAP PO SCH ×2 (08:44→20:05)
[2019-03-18] MEDS: Multivitamin W/ Minerals 1 TAB PO SCH (08:44)
[2019-03-18] MEDS: Isosorbide Dinitrate 20 MG TAB PO SCH (08:45)
[2019-03-18] MEDS: Aspirin Chewable 81 MG TAB PO SCH (08:45)
[2019-03-18] MEDS: guaiFENesin ER 600 MG TAB PO SCH ×2 (08:46→20:07)
[2019-03-18] MEDS: Ferrous Sulfate 325 MG TAB PO SCH ×2 (08:46→17:31)
[2019-03-18] MEDS: levETIRAcetam 500 MG TAB PO SCH (08:46)
[2019-03-18] MEDS: Amlodipine 5 MG TAB PO SCH ×2 (08:47→20:07)
[2019-03-18] MEDS: traMADol HCl 50 MG TAB PO PRN ×2 (08:47→16:00)
[2019-03-18] MEDS: Apixaban 2.5 MG TAB PO SCH ×2 (08:48→20:07)
[2019-03-18] MEDS: Linezolid 600 MG TAB PO SCH ×2 (08:48→20:08)
[2019-03-18] MEDS: Polyethylene Glycol OPTH DROP 15 ML BOT EA EYE SCH ×3 (08:50→20:06)
[2019-03-18] MEDS: Vancomycin HCl 750 MG in Sodium Chloride 0.9% 250 ML 250 ML IVPB SCH (08:50)
[2019-03-18] MEDS: Artificial Tear Sol 15 ML BOT EA EYE SCH ×3 (08:50→20:06)
--- NOTE | 2019-03-18 10:01 | PRG ---
DATE OF SERVICE: 03/18/2019 SUBJECTIVE: Ms. Najera is an 83-year-old white female, who was admitted for shortness of breath. Underlying pneumonia/CHF was diagnosed. We are following her up for her acute kidney injury on top of her chronic renal failure. Creatinine today was slightly high at 3.4 from yesterday's value of 3.27. The plan is to decrease Lasix from 40 mg IV q.12 to once a day. Her shortness of breath has actually improved. OBJECTIVE: VITAL SIGNS: Blood pressure is noted at 149/67 with heart rate of 49, respiratory rate is 15, and pulse ox 99%. GENERAL: Noted to be awake, alert, comfortable, not in distress. SKIN: Adequate turgor. HEENT: Pinkish conjunctivae. Anicteric sclerae. NECK: No neck mass. No carotid bruits. No JVD. CHEST: No deformities. LUNGS: Decreased breath sounds. HEART: Normal sinus rhythm. No murmur. No gallops. No rubs. ABDOMEN: Globular, soft, and nontender. No masses. EXTREMITIES: No edema. No deformities. MEDICATIONS: Medications of 03/18/2019 were reviewed. LABORATORY DATA: On 03/18/2019: Sodium 136, potassium 4.3, chloride 98, carbon dioxide 25, BUN 56, creatinine 3.4, glucose 105, and calcium 8.4. White count 10.3 and hemoglobin 7.9. ASSESSMENT AND PLAN: 1. Anemia, on weekly Epogen and p.r.n. blood transfusion. 2. Acute kidney injury/chronic renal failure. Higher creatinine of 3.4. We will decrease Lasix to 40 mg IV daily. No indication for any dialytic intervention. GFR is noted at 13 mL/minute. 3. Bradycardia. The patient is being tapered in clonidine. We will discontinue clonidine today. 4. Shortness of breath, multifactorial etiology. 5. Pneumonia/congestive heart failure. Continue supportive care. 6. Recheck basic metabolic and CBC in a.m. Job ID: [id number]
--- NOTE | 2019-03-18 10:18 | PRG ---
DATE OF SERVICE: 03/18/2019 SUBJECTIVE: She still short of breath. She is complaining some discomfort in her left chest when she takes a deep breath. OBJECTIVE: VITAL SIGNS: Temperature is 98.3, pulse between 39 and 49, and respiratory rate 15. HEENT: Unremarkable. NECK: No JVD. LUNGS: Actually fairly clear breath sounds bilaterally. CARDIAC: S1 and S2, bradycardic. ABDOMEN: Soft. EXTREMITIES: No edema. LABORATORY DATA: Sodium 136, BUN 56, creatinine 3.4. White blood cell count 10.3, hematocrit 23.6, and platelet count 310. ASSESSMENT: 1. Continued hypoxic respiratory failure, requiring high-flow oxygen. 2. Severe bradycardia. PLAN: Large part of her problem may be the bradycardia. She has had pacemaker in the past, but says she had trouble with that. It does not sound like she wants anything further done. Again, she was empirically started on anticoagulation yesterday on the presumption that she could have thromboembolic disease. She did not want to go through ventilation perfusion scanning of the chest. I have talked to the home hospice plastic products sales representative. My bias would be to put her on 6 L nasal cannula at home and stop checking O2 sats and just make her comfortable. I believe we are awaiting on family member to get here from out of state. Job ID: [id number]
--- NOTE | 2019-03-18 11:33 | PRG ---
DATE OF SERVICE: 03/18/2019 SUBJECTIVE: Ms. Najera is resting comfortably in bed. She has no medical complaints. OBJECTIVE: VITAL SIGNS: Her pulse is 40, temperature 98.3, and O2 saturation on high-flow oxygen is 99%. Nurses report that without high-flow oxygen, she desaturates fairly quickly. LUNGS: Bilateral breath sounds. HEART: Reveals a regular rate and a bradycardic rhythm without murmur, gallops, or rubs. LABORATORY DATA: Hemoglobin 7.9 and hematocrit 23.6. Creatinine is 3.4. Vancomycin trough is 21. IMPRESSION: 1. The patient has severe respiratory failure requiring high-flow oxygen. 2. Renal insufficiency. 3. Hyponatremia. 4. Cardiomyopathy, reduced ejection fraction. 5. Chronic obstructive pulmonary disease/emphysema. PLAN: I have discussed with the patient extensively the use of hospice care. The patient is agreeable to this, it is not a matter just putting the process together. I will speak with her daughter today, so her daughter may travel. I have spoken with the hospice care agency. Most likely, this will have to be an inpatient hospice care in the hospital. I have given respiratory therapy via permission to try to down her oxygen requirements, so she will not be maintained on high-flow oxygen indefinitely. I have discussed this again with the patient, she is agreeable to this at this time. Job ID: [id number]
[2019-03-18] MEDS: hydrALAZINE 20 MG/ML VIAL SLOW IVP PRN (23:39)
[2019-03-19] MEDS: hydrALAZINE 20 MG/ML VIAL SLOW IVP PRN (02:13)
[2019-03-19 04:58] LABS: #Basophils 0.1 thou/uL (0.0-0.2); #Eosinphils 0.7 thou/uL (0.0-0.7); #Lymphocytes 0.4 thou/uL (1.20-3.40); #Neutrophils 9.2 thou/uL (1.40-6.50); %Basophils 0.4 % (0.0-1.0); %Eosinophils 6.5 % (0.0-10.0); %Lymphocytes 3.3 % (21.0-51.0); %Monocytes 8.6 % (0.0-10.0); %Neutrophils 81.2 % (42.0-75.0); Hemoglobin 9.2 g/dL (12.0-16.0); Mean Corpuscular HGB CONC 33.1 g/dL (32.0-36.0); Mean Corpuscular Hemoglobin 29.6 pg (27.0-31.0); Mean Corpuscular Volume 89.5 fL (78.0-98.0); Mean Platelet Volume 7.6 fL (7.4-10.4); Platelet Count 355 thou/uL (130-400); Red Blood Cell (RBC) Count 3.11 mill/uL (4.20-5.40); White Blood Cell (WBC) Count 11.3 thou/uL (4.8-10.8)
[2019-03-19 05:12] LABS: Anion Gap 18 mmol/L (10-20); BUN (Urea Nitrogen) 57 mg/dL (9.8-20.1); Calc. Creatinine Clearance 14 mL/min (70-130); Calcium 8.9 mg/dL (7.8-10.44); Carbon Dioxide 25 mmol/L (23-31); Chloride 98 mmol/L (98-107); Estimated GFR-MDRD 13; Glucose 111 mg/dL (83-110); Potassium 4.1 mmol/L (3.5-5.1); Sodium 137 mmol/L (136-145)
[2019-03-19] MEDS: Isosorbide Dinitrate 20 MG TAB PO SCH (08:42)
[2019-03-19] MEDS: Calcitriol 0.25 MCG CAP PO SCH (08:42)
[2019-03-19] MEDS: Ferrous Sulfate 325 MG TAB PO SCH ×2 (08:43→18:17)
[2019-03-19] MEDS: Linezolid 600 MG TAB PO SCH ×2 (08:43→20:11)
[2019-03-19] MEDS: Potassium Chloride 20 MEQ TAB PO SCH ×2 (08:43→18:16)
[2019-03-19] MEDS: hydrALAZINE 25 MG TAB PO SCH ×3 (08:43→20:12)
[2019-03-19] MEDS: Aspirin Chewable 81 MG TAB PO SCH (08:43)
[2019-03-19] MEDS: Amlodipine 5 MG TAB PO SCH ×2 (08:44→20:11)
[2019-03-19] MEDS: guaiFENesin ER 600 MG TAB PO SCH ×2 (08:44→20:12)
[2019-03-19] MEDS: levETIRAcetam 500 MG TAB PO SCH (08:44)
[2019-03-19] MEDS: Pregabalin 75 MG CAP PO SCH ×2 (08:44→20:10)
[2019-03-19] MEDS: Multivitamin W/ Minerals 1 TAB PO SCH (08:44)
[2019-03-19] MEDS: Docusate 100 MG CAP PO SCH (08:44)
[2019-03-19] MEDS: Polyethylene Glycol OPTH DROP 15 ML BOT EA EYE SCH ×3 (08:45→20:13)
[2019-03-19] MEDS: Artificial Tear Sol 15 ML BOT EA EYE SCH ×3 (08:45→20:12)
[2019-03-19] MEDS: Apixaban 2.5 MG TAB PO SCH ×2 (08:45→20:11)
[2019-03-19] MEDS: Furosemide 40 MG/4 ML VIAL SLOW IVP SCH (08:45)
--- NOTE | 2019-03-19 09:55 | PRG ---
DATE OF SERVICE: 03/19/2019 SUBJECTIVE: She appears to be about the same. She is in relatively good spirits. All things considered. OBJECTIVE: VITAL SIGNS: Temperature 98.3, pulse 74, O2 saturation 95% on high-flow oxygen. HEENT: Unremarkable. NECK: No JVD. LUNGS: Relatively clear anteriorly. CARDIAC: S1, S2. Regular. ABDOMEN: Soft. EXTREMITIES: No edema. LABORATORY DATA: White blood cell count 11.3, hematocrit 27.8, platelet count 355. Sodium 137, potassium 4.1, BUN 57, creatinine 3.3, glucose 111. ASSESSMENT: 1. Refractory hypoxemia, which is likely multifactorial. 2. Sightly improved bradycardia compared to yesterday. PLAN: I am continuing her on Eliquis, presumably treating for PE, although we do not have a definitive diagnosis. She is also being treated for staphylococcal sepsis. It is somewhat encouraging that her heart rate is better. We will continue to follow. Job ID: [id number]
--- NOTE | 2019-03-19 09:59 | PRG ---
DATE OF SERVICE: 03/19/2019 SUBJECTIVE: Ms. Najera is an 83-year-old white female with known history of acute kidney injury/chronic renal failure. Adjustment of diuretics was made yesterday due to the creatinine of 3.4. This morning, it has been noted at 3.3. She also was noted to be bradycardic and for that reason, her clonidine has now been completely discontinued. She voices no other complaints except for being tired. OBJECTIVE: VITAL SIGNS: Her blood pressure is 167/67 and most recent heart rate now is 74, respiratory rate is 20, and pulse ox 95%. GENERAL: The patient is awake and comfortable, on nasal BiPAP. HEENT: She has pinkish conjunctivae. Anicteric sclerae. NECK: No neck mass. No carotid bruits. No JVD. CHEST: No deformities. LUNGS: Decreased breath sounds. HEART: Normal sinus rhythm. No murmur. No gallops. No rubs. ABDOMEN: Globular, soft, and nontender. No masses. EXTREMITIES: No edema. No deformities. LABORATORY DATA: Laboratories of March 19, 2019; white count 11.3 and hemoglobin 9.2. Sodium 137, potassium 4.1, chloride 98, carbon dioxide 25, BUN 57, creatinine 3.31, glucose 111, and calcium 8.9. ASSESSMENT AND PLAN: 1. Acute kidney injury/chronic renal failure, superimposed hemodynamically-mediated renal dysfunction. Adjustment of diuretics have been made. Furosemide has been decreased to once a day dosing. No indication for any dialytic intervention. 2. Anemia, continue weekly Epogen. 3. Bradycardia, much improved with complete cessation over clonidine. Continue current management. 4. Recheck basic metabolic and CBC in a.m. Job ID: [id number]
[2019-03-19] MEDS: traMADol HCl 50 MG TAB PO PRN ×2 (10:48→20:14)
[2019-03-19] MEDS: Acetaminophen 500 MG TAB PO PRN ×2 (10:48→18:17)
--- NOTE | 2019-03-19 11:22 | PRG ---
DATE OF SERVICE: 03/19/2019 SUBJECTIVE: Ms. Najera is awake and alert in bed. She maintains high-flow oxygen mask, which keep her saturations at 95%. She reports no other medical complaints. OBJECTIVE: VITAL SIGNS: BP 110/74. LUNGS: Clear. HEART: Reveals a regular rate and rhythm. No murmurs, gallops, or rubs. IMPRESSION: 1. Severe chronic obstructive pulmonary disease and respiratory failure. 2. Renal insufficiency. 3. Cardiomyopathy. PLAN: After extensive discussion with the patient and her family, we will start hospice care tomorrow, once the family can arrive. The plan will be to put her back on to high-flow nasal cannula as high as we could get without high-flow oxygen otherwise patient is comfortable with this decision. The patient's family that I have talked to is comfortable with this decision. personally in the morning to begin this process. Job ID: [id number]
[2019-03-20] MEDS: Acetaminophen 500 MG TAB PO PRN ×2 (00:28→08:17)
[2019-03-20 06:55] LABS: #Basophils 0.1 thou/uL (0.0-0.2); #Eosinphils 0.6 thou/uL (0.0-0.7); #Lymphocytes 0.6 thou/uL (1.20-3.40); #Monocytes 0.8 thou/uL (0.11-0.59); #Neutrophils 6.2 thou/uL (1.40-6.50); %Basophils 1.1 % (0.0-1.0); %Eosinophils 7.6 % (0.0-10.0); %Lymphocytes 6.7 % (21.0-51.0); %Monocytes 9.2 % (0.0-10.0); %Neutrophils 75.4 % (42.0-75.0); Mean Corpuscular HGB CONC 33.4 g/dL (32.0-36.0); Mean Corpuscular Hemoglobin 29.5 pg (27.0-31.0); Mean Corpuscular Volume 88.3 fL (78.0-98.0); Mean Platelet Volume 7.7 fL (7.4-10.4); Platelet Count 336 thou/uL (130-400); Red Blood Cell (RBC) Count 3.05 mill/uL (4.20-5.40); White Blood Cell (WBC) Count 8.3 thou/uL (4.8-10.8)
[2019-03-20 07:14] LABS: Anion Gap 17 mmol/L (10-20); BUN (Urea Nitrogen) 54 mg/dL (9.8-20.1); Calc. Creatinine Clearance 14 mL/min (70-130); Calcium 8.9 mg/dL (7.8-10.44); Carbon Dioxide 25 mmol/L (23-31); Chloride 99 mmol/L (98-107); Estimated GFR-MDRD 13; Glucose 92 mg/dL (83-110); Potassium 4.1 mmol/L (3.5-5.1); Sodium 137 mmol/L (136-145)
[2019-03-20] MEDS: Aspirin Chewable 81 MG TAB PO SCH (08:17)
[2019-03-20] MEDS: Pregabalin 75 MG CAP PO SCH (08:17)
[2019-03-20] MEDS: Ferrous Sulfate 325 MG TAB PO SCH (08:17)
[2019-03-20] MEDS: Docusate 100 MG CAP PO SCH (08:17)
[2019-03-20] MEDS: Multivitamin W/ Minerals 1 TAB PO SCH (08:18)
[2019-03-20] MEDS: Potassium Chloride 20 MEQ TAB PO SCH (08:18)
[2019-03-20] MEDS: Linezolid 600 MG TAB PO SCH (08:18)
[2019-03-20] MEDS: levETIRAcetam 500 MG TAB PO SCH (08:18)
[2019-03-20] MEDS: Amlodipine 5 MG TAB PO SCH (08:18)
[2019-03-20] MEDS: Apixaban 2.5 MG TAB PO SCH (08:18)
[2019-03-20] MEDS: Furosemide 40 MG/4 ML VIAL SLOW IVP SCH (08:18)
[2019-03-20] MEDS: Polyethylene Glycol OPTH DROP 15 ML BOT EA EYE SCH (08:19)
[2019-03-20] MEDS: traMADol HCl 50 MG TAB PO PRN (08:19)
[2019-03-20] MEDS: Calcitriol 0.25 MCG CAP PO SCH (08:19)
[2019-03-20] MEDS: Artificial Tear Sol 15 ML BOT EA EYE SCH (08:19)
[2019-03-20] MEDS: guaiFENesin ER 600 MG TAB PO SCH (08:19)
[2019-03-20 08:26] LABS: Vancomycin, Trough 19.6 ug/mL
[2019-03-20 08:28] LABS: Anion Gap 19 mmol/L (10-20); BUN (Urea Nitrogen) 52 mg/dL (9.8-20.1); Calc. Creatinine Clearance 13 mL/min (70-130); Calcium 9.2 mg/dL (7.8-10.44); Carbon Dioxide 25 mmol/L (23-31); Chloride 99 mmol/L (98-107); Estimated GFR-MDRD 13; Glucose 124 mg/dL (83-110); Potassium 4.1 mmol/L (3.5-5.1); Sodium 139 mmol/L (136-145)
[2019-03-20] MEDS ORDERED: hydrALAZINE 25 MG TAB PO SCH (09:00)
[2019-03-20] MEDS ORDERED: Isosorbide Mononitrate (ER) 30 MG TAB PO SCH (09:00)
[2019-03-20] MEDS ORDERED: Morphine 2 MG/ML SYRINGE IVP PRN (09:10)
[2019-03-20] MEDS ORDERED: Lorazepam 2 MG/ML VIAL SLOW IVP PRN (09:12)
--- NOTE | 2019-03-20 09:15 | PRG ---
DATE OF SERVICE: 03/20/2019 SUBJECTIVE: Ms. Najera is an 83-year-old white female with known history of chronic renal failure/acute kidney injury, initially admitted for shortness of breath. Plan today is to transition her to comfort care. Adjustment with the BP meds was further done today. In addition, Isordil was changed to Imdur. Please note that in the last few days, the clonidine was tapered due to the bradycardia. No acute complaints today. She feels comfortable. OBJECTIVE: VITAL SIGNS: Blood pressure is 192/84, heart rate 63, temperature 98.3. GENERAL: Awake and comfortable, not in overt distress. SKIN: Adequate turgor. HEENT: Slightly pale conjunctivae. Anicteric sclerae. NECK: No neck mass. No carotid bruits. No JVD. CHEST: No deformities. LUNGS: Decreased breath sounds. HEART: Normal sinus rhythm. No murmur. No gallops, no rubs. ABDOMEN: Globular, soft, nontender. No masses. EXTREMITIES: No edema. MEDICATIONS: Medications of March 20, 2019, reviewed. LABORATORY DATA: Laboratories of March 20, 2019; white count 8.2, hemoglobin 9. Sodium 139, potassium 4.1, chloride 99, carbon dioxide 25, BUN 52, creatinine 3.47. GFR 13 mL/minute. Calcium 9.2, glucose 124. ASSESSMENT AND PLAN: 1. Acute kidney injury/chronic renal failure. Creatinine noted 3.47. This is a fluctuating creatinine. GFR; however, remains stable at 13 mL/minute. No indication for any dialytic intervention. Continue supportive care. 2. Anemia. The patient is currently on Epogen. 3. Bradycardia, resolved with discontinuation of clonidine. 4. Hypertension. Adjustment of hydralazine was done-increase to 100 mg p.o. t.i.d. Isordil was changed to Imdur. 5. Shortness of breath, clinically much improved, multifactorial etiology. The patient is for planned comfort care. Job ID: [id number]
[2019-03-20] MEDS: Vancomycin HCl 750 MG in Sodium Chloride 0.9% 250 ML 250 ML IVPB SCH (09:17)
--- NOTE | 2019-03-20 09:33 | PRG ---
DATE OF SERVICE: 03/20/2019 SUBJECTIVE: She actually looks okay, did not have any acute complaints. OBJECTIVE: VITAL SIGNS: Temperature 98.3, pulse 76, respirations 18. She is on a high-flow nasal cannula. HEENT: Unremarkable. NECK: No adenopathy or JVD. LUNGS: Clear anteriorly. CARDIAC: S1 and S2. Regular. ABDOMEN: Soft. LABORATORY DATA: Her labs were noted. ASSESSMENT: Refractory hypoxemia, which could be secondary to pulmonary emboli versus chronic pneumonia. She has not improved much with any type of therapy. PLAN: Hospice care as planned. Discussed with Dr. Hooks. Job ID: [id number]
--- NOTE | 2019-03-20 10:57 | PQF ---
DATE: 03-20-19 ATTN: DR. RANDELL TREVINO Please exercise your independent, professional judgment in responding to the clarification form. Clinical indicators are provided on the bottom of this form for your review Please check appropriate box(s): HEART FAILURE: A. TYPE: [ ] Systolic / HFrEF [ ] Diastolic / HFpEF [ x ] Combined Systolic / Diastolic B. ACUITY [ ] Acute [ ] Acute on Chronic [ x] Chronic [ ] Other diagnosis [ ] Unable to determine In addition, please specify: Present on Admission (POA): [ x ] Yes [ ] No [ ] Unable to determine For continuity of documentation, please document condition throughout progress notes and discharge summary. Thank You. CLINICAL INDICATORS - SIGNS / SYMPTOMS / LABS BNP: 03-13-19: 1046 03-15-19: 698.5 H&P: 03-14-19: HER CHEST X RAY CONFIRMED STILL LEFT LOWER LOBE PNEUMONIA AND SOME CHF EXACERBATION. 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 CONSULT NOTE DR. TAYLOR 03-15-19: CONGESTIVE HEART FAILURE CONSULT NOTE DR. DELUCA 03-15-19: CONGESTIVE HEART FAILURE, CLINICALLY IMPROVING, ON IV DIURETICS PN DR. 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 All Rights Reserved AKASH [email or web address] Office: [phone] [facility] CENTERIsabelle
[2019-03-20 11:24] VITALS: BP 169/73; TEMP 98.9
--- NOTE | 2019-03-20 15:24 | PRG ---
DATE OF SERVICE: 03/20/2019 SUBJECTIVE: Ms. Najera is awake. She is alert. She is still requiring high-flow oxygen. She has no other medical complaints today. OBJECTIVE: VITAL SIGNS: Her blood pressure is 192/84, pulse 63, and temperature 98.3. LUNGS: Reveal bilateral breath sounds. HEART: Reveals a regular rate and rhythm. No murmurs, gallops, or rubs are noted. LABORATORY DATA: Of note, her creatinine is now elevated at 3.47. IMPRESSION: The patient has end-stage cardiopulmonary disease requiring high-flow oxygen. At this point, I consider a terminal patient. PLAN: We will now begin instituting hospice care. We will tailor down to outpatient levels of oxygen of 5 L and see how she does. My conscious, she will probably not do well, but hospice will take over her care and provide palliative care management at that time. I will minimize all medications. This has been gone over with the patient multiple times. She is comfortable with this decision. Job ID: [id number]
== END 2019-03-20 14:48 | disposition hospice, inpatient (51) | DRG 871 ==
LOC: ERS 16:31 → IMCU/EMU 20:51
PROVIDERS: ADMIT Family Medicine; ATTEND Family Medicine
PROC: 5A09357 Assistance with Respiratory Ventilation, Less than 24 Consecutive Hours, Continuous Positive Airway Pressure (ICD-10-PCS; principal; 2019-03-13)
DX: A41.02 Sepsis due to Methicillin resistant Staphylococcus aureus (principal); J15.212 Pneumonia due to Methicillin resistant Staphylococcus aureus; J96.21 Acute and chronic respiratory failure with hypoxia; N17.9 Acute kidney failure, unspecified; E87.1 Hypo-osmolality and hyponatremia; I50.42 Chronic combined systolic (congestive) and diastolic (congestive) heart failure; N18.5 Chronic kidney disease, stage 5; I13.2 Hypertensive heart and chronic kidney disease with heart failure and with stage 5 chronic kidney disease, or end stage renal disease; Z66 Do not resuscitate; E78.5 Hyperlipidemia, unspecified; F41.9 Anxiety disorder, unspecified; F32.9 Major depressive disorder, single episode, unspecified; I25.5 Ischemic cardiomyopathy; K21.9 Gastro-esophageal reflux disease without esophagitis; D63.1 Anemia in chronic kidney disease; E87.6 Hypokalemia; G62.9 Polyneuropathy, unspecified; I48.0 Paroxysmal atrial fibrillation; J43.9 Emphysema, unspecified; R00.1 Bradycardia, unspecified; Z79.82 Long term (current) use of aspirin; Z88.5 Allergy status to narcotic agent; Z88.8 Allergy status to other drugs, medicaments and biological substances; Z88.2 Allergy status to sulfonamides; Z95.810 Presence of automatic (implantable) cardiac defibrillator; Z79.899 Other long term (current) drug therapy; M19.90 Unspecified osteoarthritis, unspecified site
CPT/HCPCS: 36415; 71045; 80048; 80053; 80202; 81001; 82805; 83605; 83880; 84484; 85025; 85379; 87040; 93005; 93970; 94640; 94660; 96374; 96375; J0360; J1940; J3370; J3480; J7050; J7620; Q5105

== ENCOUNTER 2019-03-20 15:08 | Inpatient (IN) | payer OTHER ==
[2019-03-20] MEDS ORDERED: Morphine 10 MG/0.5 ML ORAL SYRINGE SL PRN (15:57)
[2019-03-20] MEDS ORDERED: Scopolamine 1.5 mg/72 hour Patch TOP PRN (15:57)
[2019-03-20] MEDS ORDERED: Lorazepam 1 MG TAB PO PRN (15:58)
[2019-03-20] MEDS ORDERED: traMADol HCl 50 MG TAB PO PRN (17:52)
[2019-03-20] MEDS: traMADol HCl 50 MG TAB PO PRN (19:01)
[2019-03-20 19:24] VITALS: BMI 23.5
[2019-03-21] MEDS: traMADol HCl 50 MG TAB PO PRN ×2 (15:57→21:29)
[2019-03-22] MEDS: traMADol HCl 50 MG TAB PO PRN (01:22)
[2019-03-22] MEDS: Morphine 4 MG/ML VIAL SLOW IVP PRN (11:31)
[2019-03-22] MEDS: Morphine 2 MG/ML SYRINGE SLOW IVP PRN (17:09)
[2019-03-23] MEDS: Morphine 2 MG/ML SYRINGE SLOW IVP PRN ×2 (03:59→21:31)
[2019-03-23] MEDS: traMADol HCl 50 MG TAB PO PRN (09:05)
[2019-03-23] MEDS ORDERED: Ondansetron ODT 4 MG TAB PO PRN (09:52)
[2019-03-23] MEDS: Amlodipine 5 MG TAB PO SCH ×2 (10:12→20:47)
[2019-03-23] MEDS: Carvedilol 6.25 MG TAB PO SCH ×2 (10:12→20:48)
[2019-03-23] MEDS: cloNIDine 0.2 MG TAB PO SCH ×3 (10:12→20:48)
[2019-03-23] MEDS: Isosorbide Dinitrate 20 MG TAB PO SCH (10:12)
[2019-03-24] MEDS: Morphine 4 MG/ML VIAL SLOW IVP PRN ×2 (10:01→14:45)
[2019-03-24] MEDS: Amlodipine 5 MG TAB PO SCH (10:05)
[2019-03-24] MEDS: Carvedilol 6.25 MG TAB PO SCH (10:05)
[2019-03-24] MEDS: cloNIDine 0.2 MG TAB PO SCH ×2 (10:06→14:46)
[2019-03-24] MEDS: Isosorbide Dinitrate 20 MG TAB PO SCH (10:06)
[2019-03-24 11:06] VITALS: TEMP 97.8
[2019-03-24 14:46] VITALS: BP 157/68
[2019-03-24] MEDS: Morphine 2 MG/ML SYRINGE SLOW IVP PRN (17:31)
== END 2019-03-24 18:05 | disposition hospice, home (50) | DRG 951 ==
LOC: IMCU/EMU 15:08
PROVIDERS: ADMIT Family Medicine; ATTEND Family Medicine
DX: Z51.5 Encounter for palliative care (principal); J15.212 Pneumonia due to Methicillin resistant Staphylococcus aureus; N18.5 Chronic kidney disease, stage 5; I13.2 Hypertensive heart and chronic kidney disease with heart failure and with stage 5 chronic kidney disease, or end stage renal disease; J44.9 Chronic obstructive pulmonary disease, unspecified; K21.9 Gastro-esophageal reflux disease without esophagitis; Z95.810 Presence of automatic (implantable) cardiac defibrillator; Z98.890 Other specified postprocedural states; Z66 Do not resuscitate; Z87.891 Personal history of nicotine dependence; I48.91 Unspecified atrial fibrillation; E78.5 Hyperlipidemia, unspecified; F41.9 Anxiety disorder, unspecified; Z88.2 Allergy status to sulfonamides; Z88.5 Allergy status to narcotic agent; Z79.899 Other long term (current) drug therapy; D63.1 Anemia in chronic kidney disease; E87.6 Hypokalemia; R09.02 Hypoxemia; I25.5 Ischemic cardiomyopathy
CPT/HCPCS: 94640; J2270